=== PATIENT | female | born 1945 | race Caucasian/White ===

== ENCOUNTER 2017-08-20 21:20 | Inpatient (IN) | payer MEDICARE, SELFPAY ==
--- NOTE | 2017-08-20 21:23 | DI.RAD.S_ITS ---
PROCEDURE: XR CHEST 1V INDICATIONS: Fever hypoxia TECHNIQUE: One view of the chest was acquired. COMPARISON: [facility], , CHEST 1 VIEW, 07/18/2015, 21:28. FINDINGS: Surgical changes and devices: None. Lungs and pleura: The aeration of the lungs is similar to the previous exam. However, there is increasing attenuation within the medial aspect of the right lower lobe. Areas of scarring versus atelectasis are noted within the costophrenic angles. Course interstitial markings are identified diffusely, centered within the perihilar regions. No pneumothorax or large effusion is identified. Mediastinum: Mediastinal contours appear normal. Heart size is normal. There is aortic atherosclerosis. Bones and chest wall: No suspicious bony lesions. Overlying soft tissues appear unremarkable. IMPRESSION: 1. Possible developing right lower lobe pneumonia. Atelectasis or aspiration may have this appearance. 2. Mild basilar scarring versus atelectasis. Dictated by: Pino Vickers M.D. on 08/20/2017 at 22:08 Approved by: Pino Vickers M.D. on 08/20/2017 at 22:09
[2017-08-20 21:27] VITALS: BP 132/76; PULSE 88; RESP 18; TEMP 37.2; O2SAT 95
[2017-08-20 21:30] VITALS: BP 137/67; PULSE 86; RESP 19; O2SAT 94
--- NOTE | 2017-08-20 21:31 | ED_ITS ---
HPI - Fever General Chief Complaint: Fever Stated Complaint: Possible sepsis Time Seen by Provider: 08/20/17 21:23 Source: patient Mode of arrival: other (Air lift) Limitations: no limitations History of Present Illness HPI Narrative: Patient is a 72-year-old female presenting with fever. She was recently diagnosed with a UTI about 2 days ago. She was having painful frequent urination she was started on Macrobid and Pyridium. She also got an injection of Rocephin yesterday. She had a fever of 102 today overall feels weak and tired. She is feeling nauseated and has decreased intake. She denies any abdominal pain flank pain. She also started having a mild cough and oxygen level on in the ED noted to be in low 90's. She is also complaining of headache but no neck pain. She was given a dose of some antipyretic prior to arrival and is no longer febrile. MD complaint: fever, malaise and weakness Maximum Temperature: 102 F Related Data Home Medications Medication Instructions Recorded Confirmed VITAMIN D (Vitamin D3) 1,000 unit PO QDAY #0 07/22/10 07/22/17 metronidazole [MetroCream] 0.75 TP #0 07/22/10 07/22/17 Fish Oil 3,000 mg PO Q DAY #0 08/03/11 07/22/17 CA PANTOTHENATE/FOLIC ACID/VIT 1 tab PO QDAY #0 07/25/12 07/22/17 (MULTIVITAMIN) aspirin 162 mg PO QDAY #0 08/04/12 07/22/17 Previous Rx's Medication Instructions Recorded [TRUETRACK TEST STRIP] #50 03/23/12 metformin [Glucophage] 1,000 mg PO BIDCC #360 tab 03/02/16 [ACCU-CHEK NICOLE PLUS] BID #1 box 09/13/16 lisinopril 10 mg PO BID #180 tab 09/13/16 meloxicam 15 mg PO QDAY #90 mg 09/13/16 montelukast [Singulair] 10 mg PO QDAY #90 tab 09/13/16 ranitidine HCl 150 mg PO SEE INSTRUCTIONS #180 tab 10/21/16 Allergies Allergy/AdvReac Type Severity Reaction Status Date / Time ciprofloxacin [CIPROFLOXACIN] Allergy Mild HIVES Verified 07/22/17 09:59 Review of Systems Review of Systems All systems reviewed & are unremarkable except as noted in HPI and below Constitutional Reports body ache(s), Reports fatigue, Reports fever(s), Reports headache(s) and Denies increased appetite ENT Ears, Nose, Mouth, and Throat: Reports headache(s) Cardiovascular Denies chest pain, Denies irregular heart rhythm, Denies lightheadedness, Denies palpitations, Denies dyspnea, Denies dyspnea on exertion and Denies orthopnea Respiratory Denies chest congestion, Reports cough, Denies dyspnea and Denies dyspnea on exertion Gastrointestinal Gastrointestinal: Denies abdominal pain, Denies change in bowel habits, Denies diarrhea, Denies nausea and Denies vomiting Genitourinary Reports as per HPI Musculoskeletal Denies back pain, Denies muscle weakness, Denies numbness and Denies tingling Integumentary/Breasts Denies pruritus, Denies erythema, Denies rash and Denies wounds Neurologic Reports headache(s), Denies numbness and Denies tingling Endocrine Reports fatigue and Denies palpitations PFSH Medical History CVA (cerebral vascular accident) (Acute) Controlled type 2 diabetes mellitus (Acute) Hypertension (Acute) Non-alcoholic fatty liver disease (Acute) Family History Brother Diabetes mellitus Father Mental health problem Alzheimer's disease Grandmother Diabetes mellitus Mother Cancer Grandmother Mental health problem Sister Age: 82 Cancer Social History household members: spouse Smoking Status: Former smoker Exam Initial Vital Signs Initial Vital Signs: Vital Signs Temperature 98.9 F 08/20/17 21:27 Pulse Rate 88 08/20/17 21:27 Respiratory Rate 18 08/20/17 21:27 Blood Pressure 132/76 H 08/20/17 21:27 Pulse Oximetry 95 08/20/17 21:27 Const General: cooperative and comfortable Nutritional Appearance: average body habitus Orientation: alert, awake and oriented x3 HENMT Head: normal to inspection Neck Neck: full ROM and no meningeal signs Resp Effort & Inspection: normal respiratory effort, able to speak in complete sentences, no respiratory distress and no use of accessory muscles Auscultation: clear to auscultation bilaterally, no rales, no rhonchi and no wheezes Cardio Rate: regular rate Rhythm: regular rhythm Heart Sounds: no click, no gallops, no murmurs and no rubs Pulses: normal peripheral pulses GI Inspection: non-distended Palpation: soft, no hepatosplenomegaly, No guarding, No pulsatile mass and No tender Auscultation: normal bowel sounds Skin General: no rashes or lesions noted, No jaundice and No petechiae Neuro General: alert, oriented x3, gait normal and no focal motor deficits Speech: speech normal Course Orders Ordered: ED Orders 08/20/17 21:23 XR chest 1V Stat 08/20/17 21:30 Complete Blood Count AUTO DIFF Stat Comprehensive Metabolic Panel Stat Lactate (Lactic Acid) Stat 08/20/17 21:50 Blood Culture Stat 08/20/17 22:28 Urinalysis and Microscopic Stat 08/21/17 00:20 Consult to Physician Routine Acetaminophen (Tylenol) 650 mg PO Q6HR PRN PRN Reason: As Needed for Fever/Mild Pain Sodium Chloride (Normal Saline 0.9%) 1,000 mls @ 125 mls/hr IV CONT AMPARO Last Admin: 08/21/17 01:29 Dose: 125 mls/hr Discontinued Medications Ceftriaxone Sodium/Dextrose (Rocephin) 2 gm in 50 mls @ 100 mls/hr IV NOW ONE Stop: 08/20/17 21:52 Last Infusion: 08/20/17 22:23 Dose: 0 mls/hr Admin: 08/20/17 21:44 Dose: 100 mls/hr Sodium Chloride (Normal Saline 0.9%) 1,000 mls @ 200 mls/hr IV CONT AMPARO Stop: 08/21/17 00:20 Last Admin: 08/20/17 21:41 Dose: 200 mls/hr Azithromycin 500 mg/ Dextrose 250 mls @ 250 mls/hr IV NOW ONE Stop: 08/20/17 22:52 Last Admin: 08/20/17 23:19 Dose: 250 mls/hr Ketorolac Tromethamine (Toradol) 30 mg IV NOW ONE Stop: 08/20/17 22:52 Last Admin: 08/20/17 23:00 Dose: 30 mg Vital Signs - 8 hr 08/20/17 21:27 08/20/17 21:30 08/20/17 21:52 Temperature 98.9 F 99.0 F Pulse Rate 88 86 Respiratory Rate 18 19 Blood Pressure 132/76 H Blood Pressure [Right Arm] 137/67 H Pulse Oximetry 95 94 08/20/17 22:30 08/21/17 00:17 Temperature 97.7 F Pulse Rate 76 69 Respiratory Rate 21 19 Blood Pressure 124/85 H Blood Pressure [Right Arm] 122/63 H Pulse Oximetry 96 96 MDM - Fever Lab Data Result diagrams: 08/20/17 21:30 08/20/17 21:30 Lab Results 08/20/17 08/20/17 08/20/17 Range/Units 21:30 21:30 21:30 WBC 9.8 (4.5-11.0) X10^3/uL RBC 4.17 (4.0-5.2) X10^6/uL Hgb 12.0 (12.0-16.0) g/dL Hct 35.9 L (36-46) % MCV 86.0 (80-100) fL MCH 28.8 (26-34) PG MCHC 33.5 (30-36) % RDW 14.2 (11.6-14.8) % Plt Count 175 (150-400) X10^3/uL Neut % (Auto) 84.3 H (50-75) % Lymph % (Auto) 6.1 L (25-40) % [place] % (Auto) 5.4 (3-14) % Eos % (Auto) 4.1 H (2-4) % Baso % (Auto) 0.1 (0-2) % Neut # (Auto) 8200 H (8684-3795) /uL Sodium 132 L (137-145) mmol/L Potassium 4.1 (3.4-5.1) mmol/L Chloride 99 (98-107) mmol/L Carbon Dioxide 23 (22-32) mmol/L BUN 13 (7-17) mg/dL Creatinine 0.70 (0.52-1.04) mg/dL Estimated GFR > 60.0 (>60) mL/min BUN/Creatinine Ratio 18.6 (6-22) Glucose 142 H (80-110) mg/dL Lactate 0.9 (0.7-2.1) mmol/L Calcium 8.9 (8.4-10.2) mg/dL Total Bilirubin 0.6 (0.2-1.3) mg/dL AST 34 (14-36) IU/L ALT 41 (9-52) IU/L Alkaline Phosphatase 59 (38-126) U/L Total Protein 6.8 (6.3-8.2) g/dL Albumin 3.7 (3.5-5.0) g/dL Globulin 3.1 (1.7-4.1) g/dL Albumin/Globulin Ratio 1.2 (1.0-2.8) Urine Color Urine Appearance Urine pH (4.5-8.0) Ur Specific [place] (1.000-1.035) Urine Protein (Negative) Urine Glucose (UA) (Normal) g/dL Urine Ketones (NEGATIVE) Urine Occult Blood (Negative) Urine Nitrate (Negative) Urine Bilirubin (NEGATIVE) Urine Urobilinogen (0.2) E.U./dL Ur Leukocyte Esterase (NEGATIVE) Urine RBC (0-5/HPF) Urine WBC (0-5/HPF) Urine Bacteria (None) Ur Culture Indicated? Micro UA Comment 08/20/17 Range/Units 22:28 WBC (4.5-11.0) X10^3/uL RBC (4.0-5.2) X10^6/uL Hgb (12.0-16.0) g/dL Hct (36-46) % MCV (80-100) fL MCH (26-34) PG MCHC (30-36) % RDW (11.6-14.8) % Plt Count (150-400) X10^3/uL Neut % (Auto) (50-75) % Lymph % (Auto) (25-40) % [place] % (Auto) (3-14) % Eos % (Auto) (2-4) % Baso % (Auto) (0-2) % Neut # (Auto) (1077-5914) /uL Sodium (137-145) mmol/L Potassium (3.4-5.1) mmol/L Chloride (98-107) mmol/L Carbon Dioxide (22-32) mmol/L BUN (7-17) mg/dL Creatinine (0.52-1.04) mg/dL Estimated GFR (>60) mL/min BUN/Creatinine Ratio (6-22) Glucose (80-110) mg/dL Lactate (0.7-2.1) mmol/L Calcium (8.4-10.2) mg/dL Total Bilirubin (0.2-1.3) mg/dL AST (14-36) IU/L ALT (9-52) IU/L Alkaline Phosphatase (38-126) U/L Total Protein (6.3-8.2) g/dL Albumin (3.5-5.0) g/dL Globulin (1.7-4.1) g/dL Albumin/Globulin Ratio (1.0-2.8) Urine Color Yellow Urine Appearance Clear Urine pH 5.0 (4.5-8.0) Ur Specific [place] 1.020 (1.000-1.035) Urine Protein Trace H (Negative) Urine Glucose (UA) Negative (Normal) g/dL Urine Ketones 1+ H (NEGATIVE) Urine Occult Blood Trace-lysed (Negative) Urine Nitrate Negative (Negative) Urine Bilirubin Negative (NEGATIVE) Urine Urobilinogen 0.2 (0.2) E.U./dL Ur Leukocyte Esterase Negative (NEGATIVE) Urine RBC 0-1/hpf (0-5/HPF) Urine WBC 1-5/hpf (0-5/HPF) Urine Bacteria Few (2-10) H (None) Ur Culture Indicated? Cult not indicated Micro UA Comment Not Reportable Imaging Data Chest x-ray: Radiologist's impression: PROCEDURE: XR CHEST 1V INDICATIONS: Fever hypoxia TECHNIQUE: One view of the chest was acquired. COMPARISON: [facility], , CHEST 1 VIEW, 07/18/2015, 21:28. FINDINGS: Surgical changes and devices: None. Lungs and pleura: The aeration of the lungs is similar to the previous exam. However, there is increasing attenuation within the medial aspect of the right lower lobe. Areas of scarring versus atelectasis are noted within the costophrenic angles. Course interstitial markings are identified diffusely, centered within the perihilar regions. No pneumothorax or large effusion is identified. Mediastinum: Mediastinal contours appear normal. Heart size is normal. There is aortic atherosclerosis. Bones and chest wall: No suspicious bony lesions. Overlying soft tissues appear unremarkable. IMPRESSION: 1. Possible developing right lower lobe pneumonia. Atelectasis or aspiration may have this appearance. 2. Mild basilar scarring versus atelectasis. Dictated by: Pino Vickers M.D. on 08/20/2017 at 22:08 MDM Narrative Medical decision making narrative: The patient has recently been diagnosed with UTI with UTI symptoms she has been partially treated with Rocephin and 2 doses of Macrobid. She had fever of 102 today. She also has cough with early signs of pneumonia on x-ray. After IV fluids she still is feeling very weak. She likely now has 2 infections of UTI and pneumonia. With cor morbidities of hypertension diabetes and stroke. She does not appear septic, she does not have SIRS criteria. She is treated for community-acquired pneumonia. Dr. Turcios has been updated on symptoms and test results and agrees with admission. Discharge Plan Departure Patient Disposition: Admitted As Inpatient Clinical Impression: Pneumonia, UTI (urinary tract infection) Discharge Date/Time: 08/21/17 00:11 Interventions: ED Discharge Assessment Last Done: 08/21/17 00:15 Admit Date/Time: 08/20/17 23:57 Admit Provider: Arias Turcios
[2017-08-20] MEDS: SODIUM CHLORIDE 0.9% 1,000 ML 200 ML IV (21:41)
[2017-08-20] MEDS: CEFTRIAXONE 2 GM/50 ML FROZ.PIGGY IV (21:44)
[2017-08-20 21:51] LABS: Add Manual Diff / Slide Review NO; Basophils Percent Auto 0.1 % (0-2); Eosinophils Percent Auto 4.1 % (2-4); Hematocrit 35.9 % (36-46); Lymphocytes Percent Auto 6.1 % (25-40); Mean Corpuscular HGB Conc 33.5 % (30-36); Mean Corpuscular Hemoglobin 28.8 PG (26-34); Monocytes Percent Auto 5.4 % (3-14); Neutrophils Absolute Auto 8200 /uL (3000-5900); Neutrophils Percent Auto 84.3 % (50-75); Platelet Count 175 X10^3/uL (150-400); Red Blood Cell Count 4.17 X10^6/uL (4.0-5.2); Red Cell Distribution Width 14.2 % (11.6-14.8); White Blood Cell Count 9.8 X10^3/uL (4.5-11.0)
[2017-08-20 21:52] VITALS: TEMP 37.2
[2017-08-20 21:59] LABS: Lactate (Lactic Acid) 0.9 mmol/L (0.7-2.1)
[2017-08-20 22:00] LABS: Alanine Aminotransferase 41 IU/L (9-52); Albumin 3.7 g/dL (3.5-5.0); Albumin Globulin Ratio 1.2 (1.0-2.8); Alkaline Phosphatase 59 U/L (38-126); Aspartate Aminotransferase 34 IU/L (14-36); BUN Creatinine Ratio 18.6 (6-22); Bilirubin Total 0.6 mg/dL (0.2-1.3); Blood Urea Nitrogen 13 mg/dL (7-17); Calcium 8.9 mg/dL (8.4-10.2); Carbon Dioxide 23 mmol/L (22-32); Chloride 99 mmol/L (98-107); Estimated Glomerular Filt Rate > 60.0 mL/min (>60); Globulin 3.1 g/dL (1.7-4.1); Glucose 142 mg/dL (80-110); HEMOLYSIS < 15 (0-50); Potassium 4.1 mmol/L (3.4-5.1); Sodium 132 mmol/L (137-145); Total Protein 6.8 g/dL (6.3-8.2)
[2017-08-20 22:30] VITALS: BP 122/63; PULSE 76; RESP 21; O2SAT 96
[2017-08-20 22:42] LABS: Appearance Urine UA CLEAR; Bilirubin Urine UA NEGATIVE (NEGATIVE); Color Urine UA YELLOW; Glucose Urine UA NEGATIVE (Normal); Ketones Urine UA 1+ (NEGATIVE); Leukocyte Esterase Urine UA NEGATIVE (NEGATIVE); Nitrite Urine UA Negative (Negative); Occult Blood Urine UA TRACE-LYSED (Negative); Protein Urine UA TRACE (Negative); Urobilinogen Urine UA 0.2 E.U./dL (0.2)
[2017-08-20 22:53] LABS: Bacteria Urine Few (2-10); Culture Indicated Urine Cult Not Indicated; RBC Urine 0-1/HPF (0-5/HPF); WBC Urine 1-5/HPF (0-5/HPF)
[2017-08-20] MEDS: KETOROLAC 60 MG/2 ML VIAL 30 MG IV (23:00)
[2017-08-20] MEDS: AZITHROMYCIN 500 MG in DEXTROSE 5% IN WATER 250 ML IV (23:19)
[2017-08-21] VITALS (11 sets, daily range): BP systolic 119–139; BP diastolic 71–85; PULSE 69–105; RESP 16–20; TEMP 36.4–37.2; O2SAT 90–97; BMI 24.7
--- NOTE | 2017-08-21 | DI.CT.S_ITS ---
PROCEDURE: CT CHEST WO CON INDICATIONS: pneumonia TECHNIQUE: Noncontrast 5 mm thick sections acquired from the pulmonary apices to the posterior costophrenic angles. 7 mm thick coronal and sagittal MIP reformats were then acquired. For radiation dose reduction, the following was used: automated exposure control, adjustment of mA and/or kV according to patient size. COMPARISON: [facility], , XR CHEST 1V, 08/20/2017, 21:32. [facility], , CHEST 1 VIEW, 07/18/2015, 21:28. FINDINGS: Image quality: Excellent. Lungs and pleura: Bilateral pleural thickening and subpleural atelectasis in lower lobes. No acute air space opacities. No pleural effusions or pneumothorax. Central and peripheral airways are patent and normal in caliber. Mediastinum: Heart size is normal. No pericardial effusion. No mediastinal adenopathy by size criteria. Thoracic aorta and central pulmonary arteries are normal in size. Esophagus is normal in caliber. Tiny hiatal hernia. Bones and chest wall: No suspicious bony lesions. No vertebral body compression fractures. No axillary or supraclavicular adenopathy by size criteria. Thyroid gland is unremarkable. Abdomen: Visualized upper abdominal solid organs and bowel loops appear normal in the absence of contrast. IMPRESSION: Bilateral pleural thickening and subpleural atelectasis in lower lobes. No CT findings to suggest pneumonia. Dictated by: Rosetta Hanna M.D. on 08/21/2017 at 21:55 Approved by: Rosetta Hanna M.D. on 08/21/2017 at 21:58
[2017-08-21] MEDS: SODIUM CHLORIDE 0.9% 1,000 ML 125 ML IV ×2 (01:29→04:02)
--- NOTE | 2017-08-21 08:01 | PM.HP.1 ---
History of Present Illness Date Patient Seen: 08/21/17 Time Patient Seen: 08:01 Chief complaint: Possible sepsis Narrative: 72-year-old female resident of [place] presents with fever and feeling poorly. She was seen by primary care on Tuesday at the on the [place] diagnosed with urinary tract infection and given a dose of ceftriaxone and put on oral antibiotic. She continued to feel very poorly lethargy fatigue fevers muscle aches headaches and a little bit of a cough started and came in on Tuesday evening late due to a fever of 102. Patient History Medical History CVA (cerebral vascular accident) (Acute) Controlled type 2 diabetes mellitus (Acute) Hypertension (Acute) Non-alcoholic fatty liver disease (Acute) Family & Social History Social History: household members spouse Prior Living Arrangements House Safety & Behavioral: Feels Safe in Current Yes Environment Been Physically Hurt or No Threatened By a Person Suicidal Ideation Description None Suicide Plan Description No Plan Tobacco & Substance use: Smoking Status Former smoker alcohol intake frequency holiday/special occasion Substance Use Type does not use Meds Home Medications Medication Instructions Recorded Confirmed Type VITAMIN D (Vitamin D3) 1,000 unit PO QDAY #0 07/22/10 07/22/17 History metronidazole [MetroCream] 0.75 TP #0 07/22/10 07/22/17 History Fish Oil 3,000 mg PO Q DAY #0 08/03/11 07/22/17 History [TRUETRACK TEST STRIP] #50 03/23/12 07/22/17 Rx CA PANTOTHENATE/FOLIC ACID/VIT 1 tab PO QDAY #0 07/25/12 07/22/17 History (MULTIVITAMIN) aspirin 162 mg PO QDAY #0 08/04/12 07/22/17 History metformin [Glucophage] 1,000 mg PO BIDCC #360 tab 03/02/16 07/22/17 Rx [ACCU-CHEK NICOLE PLUS] BID #1 box 09/13/16 07/22/17 Rx lisinopril 10 mg PO BID #180 tab 09/13/16 07/22/17 Rx meloxicam 15 mg PO QDAY #90 mg 09/13/16 07/22/17 Rx montelukast [Singulair] 10 mg PO QDAY #90 tab 09/13/16 07/22/17 Rx ranitidine HCl 150 mg PO SEE INSTRUCTIONS #180 tab 10/21/16 07/22/17 Rx Allergies Allergy/AdvReac Type Severity Reaction Status Date / Time ciprofloxacin [CIPROFLOXACIN] Allergy Mild HIVES Verified 07/22/17 09:59 Review of Systems Review of Systems All systems reviewed & are unremarkable except as noted in HPI and below Exam Vital Signs (past 8 hours): - 08/21/17 00:17 08/21/17 03:39 08/21/17 06:27 Temperature 97.7 F 97.8 F Pulse Rate 69 70 Respiratory Rate 19 17 Blood Pressure 124/85 H 139/71 H Pulse Oximetry 96 97 94 08/21/17 07:14 Temperature Pulse Rate Respiratory Rate Blood Pressure Pulse Oximetry 93 Oxygen Delivery Method Nasal Cannula Oxygen Flow Rate 1 Narrative Exam Narrative: Somewhat lethargic she also has a little hard time focusing on questions and answers HEENT exam unremarkable Neck supple no bruit no JVD Lungs some bronchial breath sounds crackles in the right mid to lower lung field Heart regular rhythm Abdomen soft and nontender no but no masses Lower extremities trace edema Neuro exam awake alert oriented x3 little slurry answer questions or respond but is does so appropriately eventually no focal motor or sensory deficits Skin warm and dry Objective Labs Result Diagrams: 08/20/17 21:30 08/20/17 21:30 Labs: Laboratory Results - last 24 hr 08/20/17 08/20/17 08/20/17 21:30 21:30 21:30 WBC 9.8 RBC 4.17 Hgb 12.0 Hct 35.9 L MCV 86.0 MCH 28.8 MCHC 33.5 RDW 14.2 Plt Count 175 Neut % (Auto) 84.3 H Lymph % (Auto) 6.1 L [place] % (Auto) 5.4 Eos % (Auto) 4.1 H Baso % (Auto) 0.1 Neut # (Auto) 8200 H Sodium 132 L Potassium 4.1 Chloride 99 Carbon Dioxide 23 BUN 13 Creatinine 0.70 Estimated GFR > 60.0 BUN/Creatinine Ratio 18.6 Glucose 142 H Lactate 0.9 Calcium 8.9 Total Bilirubin 0.6 AST 34 ALT 41 Alkaline Phosphatase 59 Total Protein 6.8 Albumin 3.7 Globulin 3.1 Albumin/Globulin Ratio 1.2 Urine Color Urine Appearance Urine pH Ur Specific [place] Urine Protein Urine Glucose (UA) Urine Ketones Urine Occult Blood Urine Nitrate Urine Bilirubin Urine Urobilinogen Ur Leukocyte Esterase Urine RBC Urine WBC Urine Bacteria Ur Culture Indicated? Micro UA Comment 08/20/17 22:28 WBC RBC Hgb Hct MCV MCH MCHC RDW Plt Count Neut % (Auto) Lymph % (Auto) [place] % (Auto) Eos % (Auto) Baso % (Auto) Neut # (Auto) Sodium Potassium Chloride Carbon Dioxide BUN Creatinine Estimated GFR BUN/Creatinine Ratio Glucose Lactate Calcium Total Bilirubin AST ALT Alkaline Phosphatase Total Protein Albumin Globulin Albumin/Globulin Ratio Urine Color Yellow Urine Appearance Clear Urine pH 5.0 Ur Specific [place] 1.020 Urine Protein Trace H Urine Glucose (UA) Negative Urine Ketones 1+ H Urine Occult Blood Trace-lysed Urine Nitrate Negative Urine Bilirubin Negative Urine Urobilinogen 0.2 Ur Leukocyte Esterase Negative Urine RBC 0-1/hpf Urine WBC 1-5/hpf Urine Bacteria Few (2-10) H Ur Culture Indicated? Cult not indicated Micro UA Comment Not Reportable Assessment & Plan Plan: Assessment/Plan Narrative: One. Pneumonia right middle lobe by x-ray this is just beginning it looks like plan to do a CT scan to further evaluate this she also had a supposedly urinary tract infection last Tuesday currently the urine looks clear. At this point the patient will be placed on ceftriaxone and Zithromax. She has essentially failed outpatient treatment for whatever infection they were treating her for. Her oxygenation on room air about 90% so just mildly low. The patient will we admitted as an inpatient and continue IV antibiotics IV fluids and supportive care 2. Diabetes type 2 plan to continue metformin 3. History of hypertension has been on lisinopril that will be held for now as her blood pressure just a little on the low side. 4. DVT prophylaxis Lovenox abuse 5. Code status she desires to be full code Time Spent With Patient Time with patient: Greater than 35 minutes Quality VTE Deep Vein Thrombosis/Pulmonary Embolism Present on Admission: No
[2017-08-21] MEDS: METFORMIN HCL 500 MG TABLET 1000 MG PO ×2 (08:58→17:07)
[2017-08-21] MEDS: SODIUM CHLORIDE 0.9% 1,000 ML 100 ML IV (08:58)
[2017-08-21] MEDS: ENOXAPARIN 40 MG/0.4 ML SYRINGE SUBCUT (08:59)
--- NOTE | 2017-08-21 13:24 | CM.DANOTE ---
DCP/Assessment: Reviewed chart. Patient is a 72yr old female admitted to [facility] with pneumonia and possible sepsis. Primary payor is 1) Medicare 2) [facility]. PCP is Dr. Everett. Met with patient explained CM/SW role. Patient alert and oriented, sitting up in bed at time of visit. Patient reports that she is completely I with all ADL's. Pt. resides on [place] with her spouse/Yazan phone# [phone]. Patient does not use any DME at baseline and drives regularly. Patient plans to d/c home when medically stable. Patient most likely will need priority boarding pass to return to [place]. CM team name/number placed on white board. P: Anticipate home when medically stable. CM team to follow for needs. JAIME Neely
[2017-08-21] MEDS: ONDANSETRON 4 MG/2 ML INJ IV (15:45)
[2017-08-21] MEDS: ACETAMINOPHEN 325 MG TABLET 650 MG PO ×2 (17:07→22:09)
[2017-08-21] MEDS: CEFTRIAXONE 1 GM/50 ML FROZ.PIGGY IV (21:27)
[2017-08-21] MEDS: AZITHROMYCIN 250 MG in DEXTROSE 5% IN WATER 250 ML IV (22:06)
[2017-08-22] VITALS (11 sets, daily range): BP systolic 105–148; BP diastolic 63–92; PULSE 61–77; RESP 14–17; TEMP 36.6–37.5; O2SAT 94–97
--- NOTE | 2017-08-22 01:21 | PC.NURSE ---
Patient is alert and oriented. Breath sounds with inspiratory crackles in bilateral lower lobes. Currently on 3L/min oxygen per NC with sat of 96%; remains on continuous pulse oximetry. HRR. Denies nausea. BT present and abdomen is soft. Denies dysuria, frequency, urgency or incontinence. Able to turn self in bed. Fall risk score is medium and patient not requesting help when getting out of bed so bed alarm activated. Does complain of 4/10 headache but had Tylenol earlier and declines any intervention at this time.
[2017-08-22] MEDS: SODIUM CHLORIDE 0.9% 1,000 ML 100 ML IV (05:11)
[2017-08-22 06:00] LABS: Add Manual Diff / Slide Review NO; Basophils Percent Auto 0.2 % (0-2); Eosinophils Percent Auto 4.5 % (2-4); Hemoglobin 10.6 g/dL (12.0-16.0); Mean Corpuscular HGB Conc 33.2 % (30-36); Mean Corpuscular Hemoglobin 28.8 PG (26-34); Mean Corpuscular Volume 86.5 fL (80-100); Monocytes Percent Auto 7.5 % (3-14); Neutrophils Absolute Auto 7000 /uL (3000-5900); Neutrophils Percent Auto 77.8 % (50-75); Platelet Count 167 X10^3/uL (150-400); Red Cell Distribution Width 14.1 % (11.6-14.8)
[2017-08-22 06:09] LABS: Alanine Aminotransferase 66 IU/L (9-52); Albumin 3.2 g/dL (3.5-5.0); Albumin Globulin Ratio 1.1 (1.0-2.8); Alkaline Phosphatase 69 U/L (38-126); Aspartate Aminotransferase 63 IU/L (14-36); BUN Creatinine Ratio 11.7 (6-22); Bilirubin Total 0.5 mg/dL (0.2-1.3); Blood Urea Nitrogen 7 mg/dL (7-17); Calcium 8.6 mg/dL (8.4-10.2); Carbon Dioxide 26 mmol/L (22-32); Chloride 105 mmol/L (98-107); Estimated Glomerular Filt Rate > 60.0 mL/min (>60); Globulin 2.9 g/dL (1.7-4.1); Glucose 118 mg/dL (80-110); HEMOLYSIS < 15 (0-50); Potassium 3.7 mmol/L (3.4-5.1); Sodium 139 mmol/L (137-145); Total Protein 6.1 g/dL (6.3-8.2)
[2017-08-22] MEDS: ACETAMINOPHEN 325 MG TABLET 650 MG PO (08:20)
[2017-08-22] MEDS: METFORMIN HCL 500 MG TABLET 1000 MG PO ×2 (08:20→18:05)
[2017-08-22] MEDS: ENOXAPARIN 40 MG/0.4 ML SYRINGE SUBCUT (08:21)
--- NOTE | 2017-08-22 14:03 | PC.NURSE ---
day shift pt c/o HICKMAN this AM, medicated with tylenol and pain down from 4 to 2. able to wean off O2, 94-96% on RA. coughing up thick yellow phlegm. hourly rounding provided, call light within reach.
--- NOTE | 2017-08-22 15:47 | PM.PN.1 ---
Subjective Date Patient Seen: 08/22/17 Time Patient Seen: 15:47 Interval history: Patient notes improvement in cough. Denies dyspnea. Taking fluids well by mouth. Exam Vital Signs (past 8 hours): - 08/22/17 08:00 08/22/17 09:15 08/22/17 11:42 Temperature 98.4 F 97.8 F Pulse Rate 69 66 Respiratory Rate 14 16 Blood Pressure 128/77 H 120/79 Pulse Oximetry 94 94 96 Oxygen Delivery Method Room Air Oxygen Flow Rate 2 Narrative Exam Narrative: GENERAL: Patient is in no acute distress HEENT: Head normocephalic, atraumatic. Mucous membranes moist. CHEST: She has crackles in the right base, no wheeze. CARDIAC: Regular rate and rhythm. ABDOMEN: Nondistended, soft, nontender EXTREMITIES: no edema. NEUROLOGICAL: Alert, pleasant, no focal findings SKIN: Warm, dry, no petechiae, no rash Objective Labs Result Diagrams: 08/22/17 05:33 08/22/17 05:33 Labs: Laboratory Results - last 24 hr 08/22/17 08/22/17 05:33 05:33 WBC 9.0 RBC 3.70 L Hgb 10.6 L Hct 32.0 L MCV 86.5 MCH 28.8 MCHC 33.2 RDW 14.1 Plt Count 167 Neut % (Auto) 77.8 H Lymph % (Auto) 10.0 L [place] % (Auto) 7.5 Eos % (Auto) 4.5 H Baso % (Auto) 0.2 Neut # (Auto) 7000 H Sodium 139 Potassium 3.7 Chloride 105 Carbon Dioxide 26 BUN 7 Creatinine 0.60 Estimated GFR > 60.0 BUN/Creatinine Ratio 11.7 Glucose 118 H Calcium 8.6 Total Bilirubin 0.5 AST 63 H ALT 66 H Alkaline Phosphatase 69 Total Protein 6.1 L Albumin 3.2 L Globulin 2.9 Albumin/Globulin Ratio 1.1 Assessment & Plan Plan: Assessment/Plan Narrative: 1. Probable pneumonia, unclear whether bacterial or viral. CT scan without definite pneumonia but patient has right base crackles and a cough and had a high fever at home. She is definitely improving and has not had any further fever in-hospital. WBC normal. O2 sat 96% room air. Plan: Likely DC home tomorrow on oral cefuroxime 500 mg twice daily x5 days and 1 more dose of the Zithromax 500 mg p.o.. 2. Type 2 diabetes. Adequately controlled. Continue metformin. 3. Hypertension. BP normal with lisinopril on hold but can be resumed on discharge. 4. DVT prophylaxis. On low-dose Lovenox. 5. Acute anemia and likely due to IV hydration and/or inflammatory block. No indication of bleed. Quality VTE Deep Vein Thrombosis/Pulmonary Embolism Present on Admission: No
[2017-08-22] MEDS: CEFTRIAXONE 1 GM/50 ML FROZ.PIGGY IV (21:03)
[2017-08-22] MEDS: AZITHROMYCIN 250 MG in DEXTROSE 5% IN WATER 250 ML IV (22:18)
[2017-08-23 00:10] VITALS: BP 144/85; PULSE 68; RESP 16; TEMP 37.2; O2SAT 94
[2017-08-23 00:30] VITALS: O2SAT 94
[2017-08-23 03:08] VITALS: BP 143/84; PULSE 72; RESP 16; TEMP 36.8; O2SAT 94
[2017-08-23 08:00] VITALS: O2SAT 96
[2017-08-23] MEDS: METFORMIN HCL 500 MG TABLET 1000 MG PO (08:21)
--- NOTE | 2017-08-23 08:52 | P.DS_ITS ---
History of Present Illness Date Patient Seen: 08/23/17 Time Patient Seen: 08:43 Chief complaint: Possible sepsis Narrative: 72-year-old female resident of [place] presents with fever and feeling poorly. She was seen by primary care on Tuesday at the [facility] diagnosed with urinary tract infection and given a dose of ceftriaxone and put on oral antibiotic. She continued to feel very poorly lethargy fatigue fevers muscle aches headaches and a little bit of a cough started and came in on Tuesday evening late due to a fever of 102. Discharge Providers Date of admission: 08/20/17 23:57 Primary care physician: Akhil Everett MD Consults: 08/21/17 00:20 Consult to Physician Routine Comment: Consulting Provider: Arias Turcios Reason for consultation: admission Has provider been notified: Yes Discharge provider: KOKO Yusuf Summary Discharge Diagnosis: 1. Pneumonia unclear etiology, probable viral. 2. Type 2 diabetes 3. Hypertension Hospital Course: This is a summary of a 3 day hospitalization for this pleasant 72-year-old patient who presented to the emergency department with fever with a T-max of 102?. She had essentially failed outpatient treatment for whatever infection she was being treated for. Her white count was normal, urine was clear, and blood cultures x2 showed no growth after 48 hr. Her chest x-ray showed possible development of right lower lobe pneumonia, however her Chest CT revealed bilateral pleural thickening and subpleural atelectasis in lower lobes without findings to suggest pneumonia. She was empirically started on Rocephin 1 g IV q.day. As well as azithromycin 250 mg IV q.day. She has remained afebrile since admission and the remainder of her vital signs have been within normal limits. She has not required the need for any supplemental oxygen during this hospitalization. Her diabetes and hypertension have been fairly well controlled. She will continue to be on her home medications in addition to 1 day of azithromycin, and 5 days of cefuroxime. She is encouraged to follow up with her primary care provider on [place] in 1 week. Status at Discharge Functional status at discharge: independent ambulation Overall status at discharge: patient is back to baseline Time Spent with Patient Greater than 30 minutes Exam Vital Signs (past 8 hours): - 08/23/17 03:08 Temperature 98.3 F Pulse Rate 72 Respiratory Rate 16 Blood Pressure 143/84 H Pulse Oximetry 94 Oxygen Delivery Method Room Air Oxygen Flow Rate 0 Const General: cooperative, healthy appearing, comfortable, well developed and well groomed Nutritional Appearance: average body habitus Orientation: alert, awake and oriented x3 HENMT Head: normal to inspection, normocephalic and atraumatic Eyes General: appearance normal, both eyes and all related structures Pupils: PERRL Neck Neck: normal visual inspection, trachea midline and supple Other: No JVD or lymphadenopathy Chest Chest: normal inspection of the chest Resp Effort & Inspection: normal respiratory effort and able to speak in complete sentences Auscultation: clear to auscultation bilaterally Cardio Rate: regular rate Heart Sounds: S1 normal and S2 normal GI Inspection: normal to inspection Palpation: soft Auscultation: normal bowel sounds Other: Nontender Other: Unremarkable exam Back/Spine/Pelvis Back: normal to inspection Skin General: no rashes or lesions noted Neuro General: alert, awake and oriented x3 Cognition: normal cognition Speech: speech normal Gait: normal gait Motor: muscle tone normal throughout Sensory Exam: no sensory deficits noted Extrem General: normal to inspection, capillary refill normal and no pedal edema Psych Appearance: grossly normal Mental Status: mental status grossly normal Speech and Movement: speech and movement normal Mood: congruent mood Affect: normal affect Attitude: cooperative Thought Process: normal Thought Content: normal Judgment: judgment good Objective Labs Result Diagrams: 08/22/17 05:33 08/22/17 05:33 Discharge Plan Discharge Plan Patient Disposition: Home, Self-Care Discharge Med Rec/Prescriptions Prescriptions: New azithromycin 500 mg tablet 500 mg PO DAILY 1 Days Qty: 1 RF: 0 cefuroxime axetil 500 mg tablet 500 mg PO Q12H 5 Days Qty: 10 RF: 0 Continue metronidazole 0.75 % cream 0.75 dose Topical DAILY Qty: 0 RF: 0 VITAMIN D (Vitamin D3) 1,000 unit PO QDAY Qty: 0 RF: 0 Fish Oil 3,000 mg PO Q DAY Qty: 0 RF: 0 CA PANTOTHENATE/FOLIC ACID/VIT (MULTIVITAMIN) 1 tab PO QDAY Qty: 0 RF: 0 aspirin 81 MG tablet,delayed release (DR/EC) 81 mg PO QDAY Qty: 0 RF: 0 meloxicam 15 MG tablet 15 mg PO QDAY Qty: 90 RF: 1 ranitidine HCl 150 MG tablet 150 mg PO SEE INSTRUCTIONS Qty: 180 RF: 0 lisinopril 10 mg Tablet 10 mg PO DAILY RF: 0 metformin 500 mg Tablet 500 mg PO BID RF: 0 Follow up/Referrals: Akhil Everett MD [Primary Care Provider] - 1 Week Visit Report/Discharge Packet Instructions: Pneumonia-Adult Discharge Data Primary Care Provider: Akhil Everett Attending Provider: Arias Turcios Admit Date/Time: 08/20/17 23:57 Quality VTE Deep Vein Thrombosis/Pulmonary Embolism Present on Admission: No
--- NOTE | 2017-08-23 10:42 | PC.NURSE ---
Pt discharged to home. Out to car with RN and to drive home. [place] pass provided for couple. Iv alreading taken out on Noc shift.
== END 2017-08-23 08:30 | disposition home or self-care (01) | DRG 195 ==
LOC: ED 23:44 → AC 23:58
PROVIDERS: Admitting Provider Internal Medicine; Emergency Provider Emergency Medicine; Family Provider Family Medicine; PCP Family Medicine; Visit Provider Internal Medicine
DX: J12.9 Viral pneumonia, unspecified (principal); E11.9 Type 2 diabetes mellitus without complications; Z79.84 Long term (current) use of oral hypoglycemic drugs; I10 Essential (primary) hypertension; Z87.891 Personal history of nicotine dependence; Z86.73 Personal history of transient ischemic attack (TIA), and cerebral infarction without residual deficits
CPT/HCPCS: 36415; 71045; 71250; 80053; 81001; 82962; 83605; 85025; 87040; 94760; 96361; 96365; 96375; 99283; 99284; J0696; J1650; J1885; J2405

== ENCOUNTER → 2018-06-09 10:48 | Outpatient (CLI) | payer MEDICARE, SELFPAY ==
[2017-08-21 00:22] VITALS: BMI 24.7
--- NOTE | 2018-06-09 | DI.MRI.S_ITS ---
PROCEDURE: MR KNEE RT WO CON INDICATIONS: PAIN IN RIGHT KNEE TECHNIQUE: Merino-Nephew Visionaire protocol was performed. Noncontrast sagittal PD fast spin echo and T2 fast spin echo with fat saturation, sagittal 3-D FLASH with fat saturation; coronal T1 spin echo and PD fast spin echo with fat saturation, and axial PD fast spin echo with fat saturation through the knee. COMPARISON: None. FINDINGS: Image quality: Excellent. Menisci: Marked irregularity and intrasubstance signal change involving the posterior horn and body of the lateral meniscus which could reflect prior postsurgical changes versus tear. There is slight extrusion of the residual meniscal body substance. Undersurface tear involving the body of the medial meniscus is seen and there is slight partial extrusion of the body. Cruciate ligaments: The anterior and posterior cruciate ligaments appear intact. Medial structures: The medial collateral ligament appears intact. The posterior oblique ligament, semimembranosus tendon insertions, oblique popliteal ligament, and meniscocapsular junction appear intact. Visualized portions of the pes anserinus tendons appear normal. No abnormal bursal fluid. Lateral structures: The lateral collateral ligament, long and short heads of the biceps femoris tendon appear intact. The popliteus tendon appears normal; the popliteofibular ligament appears intact. The posterosuperior and anteroinferior popliteomeniscal fascicles appear intact. The arcuate and fabellofibular ligaments appear intact, on either side of the lateral inferior geniculate artery. Iliotibial band appears normal. Anterior structures: Quadriceps tendon grossly intact. There is mild distal patellar tendinopathy with thickening and low-grade intrasubstance signal change. There is adjacent soft tissue edema. Hoffa's fat pad grossly unremarkable. Bones and cartilage: No focal marrow contusion or discrete low signal fracture line. Within the medial compartment, diffuse partial-thickness loss of the femoral and tibial articular cartilage. Within the lateral compartment, there is full thickness denudation of the femoral and tibial articular cartilage. On the axial pulse sequences, there is a 7 mm osteochondral defect involving the posterior nonweightbearing lateral femoral condyle image 15 series 6 Within the patellofemoral compartment, diffuse partial-thickness loss of femoral trochlear and patellar articular cartilage. There is mild subchondral marrow cystic change at the median patellar ridge. Joint space: Moderate joint effusion. No Zhou's cyst. No definite intra-articular loose bodies identified. IMPRESSION: Irregularity and diminutive size of the posterior horn and body lateral meniscus, this could reflect postoperative appearance after partial meniscectomy. Undersurface tear involving the body of the medial meniscus, with slight partial extrusion. Severe degenerative joint disease, most advanced in the lateral compartment. 7 mm osteochondral defect involving the posterior lateral femoral condyle as above. Moderate joint effusion. Mild distal patellar tendinopathy. Dictated by: Minesh Solorio M.D. on 06/09/2018 at 12:08 Approved by: Minesh Solorio M.D. on 06/09/2018 at 12:17
== END ==
PROVIDERS: Family Provider Family Medicine; PCP Family Medicine; Visit Provider Orthopaedic Surgery
DX: M25.561 Pain in right knee (principal); M19.90 Unspecified osteoarthritis, unspecified site; M25.461 Effusion, right knee
CPT/HCPCS: 73721

== ENCOUNTER 2018-08-23 08:40 | Day surgery (SDC) | payer MEDICARE, SELFPAY ==
[2017-08-21 00:22] VITALS: BMI 24.7
[2018-08-09 12:38] VITALS: BMI 22.6
[2018-08-23] VITALS (16 sets, daily range): BP systolic 108–149; BP diastolic 60–85; PULSE 64–79; RESP 11–19; TEMP 36.3–36.7; O2SAT 91–97; BMI 23.1
--- NOTE | 2018-08-23 07:37 | DI.RAD.S_ITS ---
PROCEDURE: XR KNEE RT 1TO2V INDICATIONS: prosthesis placement TECHNIQUE: 2 view(s) of the knee acquired. COMPARISON: [facility] BELGICA Roe, XR KNEE ARTHRITIC SERIES RT, 05/29/2018, 15:50. FINDINGS: Bones: Patient is status post knee joint arthroplasty. Hardware components are in expected positions. Visualized bony structures are intact. Soft tissues: Overlying postoperative changes are noted. IMPRESSION: Right knee arthroplasty as above. Dictated by: Sobeida Birmingham M.D. on 08/23/2018 at 14:01 Approved by: Sobeida Birmingham M.D. on 08/23/2018 at 14:01
[2018-08-23] MEDS: LACTATED RINGERS 1,000 ML 42 ML IV (09:23)
[2018-08-23] MEDS: CELECOXIB 200 MG CAPSULE PO (09:25)
[2018-08-23] MEDS: PREGABALIN 75 MG CAPSULE PO (09:32)
[2018-08-23] MEDS: VANCOMYCIN 1,000 MG/200 ML PIGGYBACK 200 MG IV (09:38)
[2018-08-23] MEDS: CEFAZOLIN 2 GM/100 ML FROZ.PIGGY IV ×2 (10:38→18:54)
--- NOTE | 2018-08-23 10:56 | PM.PREOP ---
Pre-operative Note Interval Note History & Physical reviewed/Exam performed by Physician: Yes Changes to H&P: No
--- NOTE | 2018-08-23 10:58 | P.OP_ITS ---
Operative Date/Time/Diagnoses Date of procedure: 08/23/18 Time of procedure: 11:08 Pre-op diagnosis: Right knee OA Post-op diagnosis: same Procedure & Clinicians Procedure: Right total knee arthroplasty Same procedure as scheduled: Yes Indications: The patient has had progressively worsening right knee pain with radiographic changes consistent with arthritis. Non-operative management has failed and the patient has requested total knee replacement. The risks, benefits and alternatives to surgery were discussed with the patient prior to proceeding. Risks discussed included, but were not limited to, failure to relieve pain, stiffness, infection, nerve damage, deep venous thrombosis, pulmonary embolism, stroke, coma, heart attack, permanent paralysis and , as well as the potential need for eventual revision of the prosthetic. Surgeon: Gemma Merino Gasoline Tractor Operator: Yazan Tse Anesthesia Type: General and Spinal Operative Notes Findings: Severe right knee osteoarthritis, good stability and balance Closure Type: primary Specimen(s): none sent Prosthetic devices, grafts, tissues, transplants, or devices: Merino and Nephew Journey BCS 2 size 4 femur, size 4 tibia, poly +10, 32 by 7.5 patella Applied: drain(s) Estimated Blood Loss (mL): 250 Blood products transfused: none Tourniquet time (min): 74 Procedure in detail: The patient was seen in the pre-operative area, where the patient identified the right knee as the operative site and this was marked with my initials. The patient received pre-operative antibiotics, and was taken to the operating room and placed on the operative table in the supine position. After satisfactory anesthesia, a verification lead out was performed. The right leg was encircled with a tourniquet about the proximal thigh, and the leg was prepared from the toes to the tourniquet with ChloroPrep in the usual fashion and draped through sterile drapes. The leg was elevated and exsanguinated with Eschmark bandage and the tourniquet inflated to [250] mmHg pressure. The knee was approached through an approximately 18 cm incision centered over the patella and carried into the knee through a medial parapatellar arthrotomy. A portion of the medial and lateral meniscus was resected. Soft tissue was carefully mobilized around the patella the patella was measured with a caliper. Bone was resected from the patella and the patellar height was reconstituted with up an appropriate sized patellar component. A cover was then placed on the patella. A small amount of additional medial and lateral meniscus was resected. The visionare guide fit well to the distal femur. It looked like an appropriate distal femoral cut and the cut was made without difficulty. The rotation was assessed and the appropriate size femoral guide was placed on the distal femur and finishing cuts were made. There was no evidence of notching. The anterior, posterior and chamfer cuts were then made. The posterior osteophytes and soft tissues were then removed. The posterior capsule was injected with part of a mixture of 60 ml 0.25% Marcaine mixed with 20 ml Exparel for post operative pain control. The remainder of this mixture was injected into the capsule and subcutaneous tissues during cement curing. The tibia was prepared and the visionaire guide fit well to the distal tibia. The rotation was assessed. The patient was placed in extension residual medial and lateral meniscus as well as any residual bone was carefully resected. [No] additional tibia was resected. Hemostasis was achieved especially posteriorly. Additional local was injected into the posterior capsule. The extension gap was assessed and additional releases for gap balancing were performed as necessary. It was checked with the gap health promoter. The femoral component was trial was placed and the notch was finished. Trial tibial and femoral components were then placed and the knee placed through a range of motion. Range of motion was [0-130], with good stability throughout the range. The trials were then removed, and the tibia was finished. The bone was prepared with pulsatile lavage, and dried with a sponge. Cement was applied and the final prosthetics placed. Excess cement was removed during and after cement curing. A brief Betadine soak was performed. After confirming there was no extruded cement posteriorly, the final tibial insert was placed. The knee was copiously irrigated and the tourniquet deflated. Hemostasis was obtained with the Bovie. A drain was placed and brought out superolaterally. The capsule was closed with interrupted Vicryl suture. The subcutaneous layer was closed with barbed sutures, and the skin with a running 3-0 V-Lock suture and Surgical glue. An Aquacel Ag dressing was applied and the patient was taken to recovery having tolerated the procedure well. Complications: none Condition: stable Disposition: Acute Care Plan for aftercare: The patient will be maintained on a standard total knee replacement protocol with weight bearing as tolerated. The patient will receive aspirin and sequential compression devices for DVT prophylaxis. The patient will be discharged home when safe for the home environment.
[2018-08-23] MEDS: TRANEXAMIC ACID 1,000 MG VIAL 1000 MG INJ ×2 (11:10→12:50)
--- NOTE | 2018-08-23 11:28 | SUR.OPER ---
Supine on padded OR bed. Pillow under head, arms secured on padded armboards <90 degree abduction. Safety belt across torso. Non-operative leg secured with tape over blanket over lower leg. Operative leg secured in [place]o/ positioner. Foam padded brace at thigh of operative leg.
[2018-08-23] MEDS: BUPIVACAINE 0.25% W/ EPI 30 ML VIAL 60 ML INJ (11:36)
[2018-08-23] MEDS: POVIDONE-IODINE 15 ML, SODIUM CHLORIDE 0.9% 250 ML TOP (11:36)
[2018-08-23] MEDS: BUPIVACAINE LIPOSOME 266 MG/20 ML VIAL INJ (11:36)
--- NOTE | 2018-08-23 13:40 | SUR.PHASEI ---
Report called to Court
--- NOTE | 2018-08-23 13:58 | SUR.PHASEI ---
Pt transferred to the floor with belongings bag. Spouse present in room. Report to Court. VS stable. IV saline locked. Elastic drsg cdi. HV patent. Dull sensation and weak movement to ADEN feet. Spinal level at l5.
--- NOTE | 2018-08-23 14:05 | SUR.PHASEI ---
Clarified HV clamp order with Dr. Merino. did want HV clamped. Clamp applied. Court Tran notified.
[2018-08-23] MEDS: LACTATED RINGERS 1,000 ML 125 ML IV ×2 (14:27→22:35)
--- NOTE | 2018-08-23 14:54 | PC.NURSE ---
POST OP ARRIVAL 1350 - alert, upright in bed, denies discomfort now, able to wiggle toes slightly, ra 94%, p69, bp 110/69, no nausea and given water and jello, tessa wrap over aquacell cdi, arrived w/unclamped hemovac w/serosang in cannister, called Alli in PACU as post op order stated to clamp x 2 hours and Alli returned and clamped at 1400. Spouse at bedside, oriented to room, call light provided, scds placed.
--- NOTE | 2018-08-23 16:20 | PT.IIE ---
Current Diagnoses Unilateral primary osteoarthritis, right knee (08/23/18) Surgery Performed Operation Date: 08/23/18 10:45 Actual Procedures p Total Knee Arthroplasty(Right) - Gemma Merino MD Surgical History (Last Updated 08/09/18 @ 13:17 by Meri Gannon, RN) History of lumbar fusion (Acute ~2018) Hx of arthroscopy of right knee (Acute) Hx of bilateral cataract extraction (Acute) Medical History (Last Updated 08/09/18 @ 13:17 by Meri Gannon RN) Arthritis (Acute) Conjunctivitis (Acute) GERD (gastroesophageal reflux disease) (Acute) Generalized headaches (Acute) HLD (hyperlipidemia) (Acute) Doherty's neuroma of right foot (Acute) Osteoarthritis (Acute) CVA (cerebral vascular accident) (Acute) Controlled type 2 diabetes mellitus (Acute) Hypertension (Acute) Non-alcoholic fatty liver disease (Acute) Physical Therapy Inpatient Evaluation/Re-Eval M1 PT/OT-IP Prior Functional Status Start: 08/23/18 15:42 Freq: NEEDED Status: Active Protocol: Document 08/23/18 16:20 AB (Rec: 08/23/18 18:13 AB [id number]) Medical Review Prior Functional Status Medical History Reviewed Yes Communication able to make needs known Mobility and Gait stated that she is iindependent with all mobilities and ambulation without AD Social History Household Members spouse Living Arrangements House Number of Floors (Floors) Two Floors Number of Stairs To Enter/Railing? pt stays on main level of the house has 1 step to enter Home Environment High Toilet Walk in Shower Built-In Shower Seat Home Equipment Front Wheel Walker Four Wheel Walker M2 PT-IP Current Condition Start: 08/23/18 15:42 Freq: NEEDED Status: Active Protocol: Document 08/23/18 16:20 AB (Rec: 08/23/18 18:13 AB [id number]) Physical Therapy Current Condition Current Condition Evaluation Date 08/23/18 Treatment Diagnosis s/p R TKA; difficulty in walking Onset Date 08/23/18 Weight Bearing Status Weight Bearing Status Weight Bear as Tolerated M3 PT-IP Subjective Start: 08/23/18 15:42 Freq: NEEDED Status: Active Protocol: Document 08/23/18 16:20 AB (Rec: 08/23/18 18:13 AB [id number]) Subjective Physical Therapy Visit Type Type Initial Evaluation Visit Start Time 16:20 Visit Stop Time 17:35 Total Visit Minutes 75 Number of REFERRAL MANAGEMENT LIAISON Visits 0 Physical Therapy Visit Comments Patient Comments pt agreeable to do PT Therapy Pain Assessment Pain When Pain Assessed During Mobility Pain Present Pain Present Pain Reported Location Right Knee Intensity 3 Scale Used Numeric (1 - 10) Pain Management Techniques Apply Cold Re-positioning Timing of Activity with Medications M4 PT-IP Mobility and Gait Start: 08/23/18 15:42 Freq: NEEDED Status: Active Protocol: Document 08/23/18 16:20 AB (Rec: 08/23/18 18:13 AB [id number]) PT-Bed Mobility Assessment Supine to Sit Supine to Sit Standby Assistance Scooting Scooting to Edge of Bed Standby Assistance PT-Transfer Assessment Sit to and From Stand Sit to and from Stand Minimal Assistance 1 Person Assistance Use of Upper Extremities Equipment Transfer Assistive Device Gait Belt Front Wheeled Walker Orthotic/Prosthetic Devices or Brace: No Transfers Transfer Destination Bedside Commode Transfer Technique Stand Step Pivot Transfer Ability Level of Assist Minimal Assistance 1 Person Assistance Comments Mobility Comments BP supine: 123/72 pt completed supine to sit SBA. C/O feeling oozy. BP 137/77 pt completed sit to stand min A and stated that she is voiding. instructed to sit back down. placed bedside commode next to pt. pt completed stand step transfer to the commode min A using FWW . pt completed sit to stand from the commode min A and was able to maintain standing using FWW for support SBA while NAC assisted with hygiene care and brief management. Gait Assessment Gait Gait Assistance Required: Contact Guard Assist Distance (Feet) 12 Able to Maintain Weight Bearing Status Yes During Gait Assistive Devices Assistive Device Gait Belt Front Wheeled Walker Orthotic/Prosthetic Devices or Brace: No Gait Deviations General Gait Pattern Antalgic Decreased Stride Length Decreased Feet Clearance Factors Limiting Gait Function Factors Limiting Gait Function Decreased Activity Tolerance Decreased Strength Limited Range of Motion Pain Poor Balance Comments Gait Comments pt ambulated from the commode to the chair using FWW CGA ~ 12 ft. pt agreed to sit up on chair. positioned pt on chair. ice pack provided. set pt up for dinner. call light and table placed within reach. BP at end of tx session: 131/ 83 PT-Balance Assessment Sitting Balance and Reactions Static Sitting Balance Ability Good Dynamic Sitting Balance Ability Good Standing Balance and Reactions Static Standing Balance Ability Fair Dynamic Standing Balance Ability Fair Device Used FWW M5 PT-IP Objective Assessments Start: 08/23/18 15:42 Freq: NEEDED Status: Active Protocol: Document 08/23/18 16:20 AB (Rec: 08/23/18 18:13 AB [id number]) Orientation Orientation/Cognition Level of Alertness Alert Orientation Name Place Situation Language Function Ability No Deficits Noted Safety Awareness Understands Safety Issues Memory Description Short Term Impaired Gross Range of Motion Lower Extremity ROM Assessment Right Impaired Impairments R knee flexion: ~ 90 deg R knee extension: 10 deg lacking in neutral Strength Lower Extremity Strength Assessment Right Impaired Knee 3+/5 Coordination Assessment Gross Coordination Gross Coordination WNL Sensation Assessment Sensation Gross Sensation Right LE Impaired Comments Sensation Comments decrease sensation on R thigh Muscle Tone Muscle Tone WNL Yes M6 PT-IP Treatment Start: 08/23/18 15:42 Freq: NEEDED Status: Active Protocol: Document 08/23/18 16:20 AB (Rec: 08/23/18 18:13 AB [id number]) Physical Therapy Treatment Exercises Exercises Heel Slides Education Education Provided Precautions Weight Bearing Status Post-Op Packet Safety M7 PT-IP Assessment and Plan Start: 08/23/18 15:42 Freq: NEEDED Status: Active Protocol: Document 08/23/18 16:20 AB (Rec: 08/23/18 18:13 AB [id number]) PT Summary Assessment and Plan Potential Rehabilitation Potential Good Status of Condition at Evaluation Stable Summary Impairments Pain ROM Strength Balance Coordination Sensation Bed Mobility Transfers Gait Activity Tolerance Assessment Summary pt requiring one person assist with mobility and will likely progress during hospital stay . pt plans to go home with spouse to assist her. will conduct caregiver training when appropriate and stair climbing training will be conducted prior to d/c. Goals Bed Mobility Goal Independent Transfer Goal Independent Front Wheeled Walker Gait Goal Independent Front Wheel Walker Gait Distance 200 Other Goals up/down 1 step using FWW SBA Days to Meet Goals 3 Frequency of Treatment Frequency Of Treatment Twice a Day Treatment Plan Physical Therapy Treatment Plan Bed Mobility Training Transfer Training Gait Training Therapeutic Exercise Balance Retraining Post Op Education Discharge Planning Hot or Cold Pack Neuromuscular Re-ed Coordination Retraining Manual Therapy Other Recommendations and Next Treatment ambulation, stair climbing Focus Recommendations To Nursing Amount of Assist Needed 1 Person Assist Discharge Recommendations PT Discharge Recommendations Home with Assistance Outpatient PT
--- NOTE | 2018-08-23 17:47 | RT ---
1550 Patient is resting well in bed, no dyspnea. BP 123/76- RR 14 - Pu;se 64- Saturation 95% on RA. BS CTA. Patient is S/P right knee surgery. Denies respiratory history, quit smoking 30 years ago. Performs well with DB&SMI maneuver; has blow valve from pre-op conference and pperforms well with it as well. No Respiratory Intervention needed.
[2018-08-23] MEDS: OXYCODONE IR 5 MG TABLET PO (18:54)
[2018-08-23] MEDS: DOCUSATE 100 MG CAPSULE PO (21:00)
[2018-08-23] MEDS: METFORMIN HCL 500 MG TABLET PO (21:00)
[2018-08-23] MEDS: LISINOPRIL 10 MG TABLET PO (21:00)
[2018-08-23] MEDS: ATORVASTATIN 20 MG TABLET 40 MG PO (21:00)
[2018-08-23] MEDS: ASPIRIN EC 81 MG TABLET PO (21:00)
[2018-08-24] VITALS: BP 119/64; PULSE 57; RESP 16; TEMP 36.4; O2SAT 94
[2018-08-24] MEDS: CEFAZOLIN 2 GM/100 ML FROZ.PIGGY IV (03:29)
[2018-08-24 04:00] VITALS: BP 110/77; PULSE 61; RESP 16; TEMP 36.3; O2SAT 94
[2018-08-24 07:12] LABS: Hematocrit 33.4 % (36-46); Hemoglobin 11.2 g/dL (12.0-16.0)
[2018-08-24 08:00] VITALS: BP 116/75; PULSE 54; RESP 18; TEMP 36.3; O2SAT 96
[2018-08-24] MEDS: DOCUSATE 100 MG CAPSULE PO (08:27)
[2018-08-24] MEDS: CHOLECALCIFEROL (VITAMIN D3) 1,000 UNIT TABLET 1000 UNIT PO (08:27)
[2018-08-24] MEDS: METFORMIN HCL 500 MG TABLET PO (08:27)
[2018-08-24] MEDS: MELOXICAM 7.5 MG TABLET 15 MG PO (08:28)
[2018-08-24] MEDS: ASPIRIN EC 81 MG TABLET PO (08:28)
[2018-08-24] MEDS: OXYCODONE IR 5 MG TABLET PO (08:32)
--- NOTE | 2018-08-24 08:32 | P.DS_ITS ---
History of Present Illness Date Patient Seen: 08/24/18 Time Patient Seen: 08:31 Chief complaint: [id number] Narrative: Please see HPI recorded in the chart. Discharge Providers Date of admission: 08/23/18 08:40 Discharge Date: 08/24/18 Primary care physician: Akhil Everett MD Consults: 08/23/18 07:37 Consult to Anesthesiology Routine Comment: Consulting Provider: Anesthesiologist Reason for consultation: Regional block for post operative pain control Has provider been notified: Yes 08/23/18 13:56 Consult to Discharge Planning Routine Comment: Consult to Physical Therapy Evaluate & Treat Comment: Physician Instructions: postop TKA protocol Consult to Respiratory Therapy Evaluate & Treat Comment: Physician Instructions: Evaluate and treat Discharge provider: Lori Field PA-C Summary Discharge Diagnosis: s/p right total knee arthroplasty Hospital Course: The patient has had progressively worsening right knee pain with radiographic changes consistent with arthritis. Non-operative management has failed and the patient has requested total knee replacement. The risks, benefits and alternatives to surgery were discussed with the patient prior to proceeding. Risks discussed included, but were not limited to, failure to relieve pain, stiffness, infection, nerve damage, deep venous thrombosis, pulmonary embolism, stroke, coma, heart attack, permanent paralysis and , as well as the potential need for eventual revision of the prosthetic. After obtaining informed consent the patient was taken to the operating room 08/23/18 for right total knee arthroplasty by Dr. Merino. She tolerated the procedure well with no complications. She was admitted to the floor and has been progressing well postoperatively. Pain has been well controlled. She has mobilized about the room and is voiding independently. Had some residual effects of the spinal yesterday that has resolved POD#1. She is tolerating a diet. Anticipate discharge to [facility] today pending clearance by physical therapy. Status at Discharge Cognitive/behavioral status at discharge: oriented Functional status at discharge: uses cane/walker Overall status at discharge: patient is progressing back to baseline Exam Vital Signs (past 8 hours): - 08/24/18 04:00 Temperature 97.4 F L Pulse Rate 61 Respiratory Rate 16 Blood Pressure 110/77 Pulse Oximetry 94 Oxygen Delivery Method Room Air Oxygen Flow Rate 0 Narrative Exam Narrative: Pleasant 73 year old female resting comfortably in bed, alert and oriented in no acute distress. Dressing in place over right knee is clean, dry, and intact. Intact ankle flexion/extension. Sensation intact to light touch. Palpable pedal pulse. Calves soft, compressible bilaterally. Objective Labs Result Diagrams: 08/24/18 06:35 Labs: Laboratory Results - last 24 hr 08/24/18 06:35 Hgb 11.2 L Hct 33.4 L Discharge Plan Discharge Plan Patient Disposition: Home Discharge comment: Discharge to home after cleared by physical therapy Discharge Med Rec/Prescriptions Prescriptions: New aspirin 81 mg Tablet,Delayed Release (Dr/Ec) 81 mg PO BID Qty: 60 RF: 0 docusate sodium [DOK] 100 mg Capsule 100 mg PO BID Qty: 60 RF: 0 oxycodone 5 mg Tablet 5 mg PO Q3HR PRN (Reason: Pain, Moderate (4-6)) Qty: 1 RF: 0 Continued cholecalciferol (vitamin D3) [Vitamin D3] 1,000 unit Capsule 1,000 unit PO DAILY Qty: 0 RF: 0 meloxicam 15 MG tablet 15 mg PO QDAY Qty: 90 RF: 1 lisinopril 10 mg Tablet 10 mg PO BEDTIME RF: 0 metformin 500 mg Tablet 500 mg PO BID RF: 0 atorvastatin 40 mg Tablet 40 mg PO BEDTIME RF: 0 ranitidine HCl 150 MG tablet 150 mg PO BID RF: 0 Discontinued ibuprofen 200 mg Capsule 200 mg PO DAILY PRN (Reason: Headache) RF: 0 Follow up/Referrals: Gemma Merino MD [Physician] - Provider Discharge Instructions Activity: Weight bear as tolerated. Recommend walker for support. Continue ankle pumps. Cold/Heat Therapy: Ice packs as needed. Skin/Wound/Dressing Care Report to your healthcare provider any signs of infection, such as:: chills, fever, night sweats, unusual drainage and unusual redness Dressing: TIGRE wrap may be removed tomorrow. Please leave Aquacel dressing in place, it will be removed at your postoperative visit. Please let the office know if dressing becomes saturated. Visit Report/Discharge Packet Instructions: DI for Knee Replacement Discharge Data Primary Care Provider: Akhil Everett Attending Provider: Gemma Merino Admit Date/Time: 08/23/18 08:40 Quality VTE Deep Vein Thrombosis/Pulmonary Embolism Present on Admission: No
--- NOTE | 2018-08-24 09:25 | PT.IPTN ---
Current Diagnoses Unilateral primary osteoarthritis, right knee (08/23/18) Surgery Performed Operation Date: 08/23/18 10:45 Actual Procedures p Total Knee Arthroplasty(Right) - Gemma Merino MD Physical Therapy Treatment Note M2 PT-IP Current Condition Start: 08/23/18 15:42 Freq: NEEDED Status: Active Protocol: Document 08/23/18 16:20 AB (Rec: 08/23/18 18:13 AB [id number]) Physical Therapy Current Condition Current Condition Evaluation Date 08/23/18 Treatment Diagnosis s/p R TKA; difficulty in walking Onset Date 08/23/18 Weight Bearing Status Weight Bearing Status Weight Bear as Tolerated M3 PT-IP Subjective Start: 08/23/18 15:42 Freq: NEEDED Status: Active Protocol: Document 08/24/18 09:25 GGD (Rec: 08/24/18 11:25 GGD [email or web address]) Subjective Physical Therapy Visit Type Type Treatment Note Visit Start Time 09:00 Visit Stop Time 09:25 Total Visit Minutes 25 Number of STIFF LEG DERRICK OPERATOR Visits 1 Physical Therapy Visit Comments Patient Comments Pt hopes to go home today. Therapy Pain Assessment Pain When Pain Assessed At Rest Pain Present Pain Present Denied Pain M4 PT-IP Mobility and Gait Start: 08/23/18 15:42 Freq: NEEDED Status: Active Protocol: Document 08/24/18 09:25 GGD (Rec: 08/24/18 11:25 GGD [email or web address]) PT-Transfer Assessment Sit to and From Stand Sit to and from Stand Standby Assistance Use of Upper Extremities Equipment Transfer Assistive Device Gait Belt Front Wheeled Walker Orthotic/Prosthetic Devices or Brace: No Transfers Transfer Destination Chair Transfer Ability Level of Assist Contact Guard Assistance Use of Upper Extremities Gait Assessment Gait Gait Assistance Required: Standby Assistance Contact Guard Assist Distance (Feet) 220 Able to Maintain Weight Bearing Status Yes During Gait Assistive Devices Assistive Device None Gait Belt Front Wheeled Walker Orthotic/Prosthetic Devices or Brace: No Gait Deviations General Gait Pattern Within Normal Limits Factors Limiting Gait Function Factors Limiting Gait Function Decreased Activity Tolerance Decreased Strength Limited Range of Motion Pain Poor Balance Comments Gait Comments Pt ambulated 160 feet with FWW with CGA and then 60 feet without AD with SBA. Stair Climbing Assessment Evaluation Level of Assist On Stairs Standby Assistance Devices Stair Climbing Assistive Devices Front Wheel Walker Technique/Endurance Stair Climbing Direction Ascend and Descend Stair Climbing Technique Step to Step Number of Steps Climbed 1 Stair Climbing Set # Repetitions (reps) 2 M5 PT-IP Objective Assessments Start: 08/23/18 15:42 Freq: NEEDED Status: Active Protocol: Document 08/23/18 16:20 AB (Rec: 08/23/18 18:13 AB [id number]) Orientation Orientation/Cognition Level of Alertness Alert Orientation Name Place Situation Language Function Ability No Deficits Noted Safety Awareness Understands Safety Issues Memory Description Short Term Impaired Gross Range of Motion Lower Extremity ROM Assessment Right Impaired Impairments R knee flexion: ~ 90 deg R knee extension: 10 deg lacking in neutral Strength Lower Extremity Strength Assessment Right Impaired Knee 3+/5 Coordination Assessment Gross Coordination Gross Coordination WNL Sensation Assessment Sensation Gross Sensation Right LE Impaired Comments Sensation Comments decrease sensation on R thigh Muscle Tone Muscle Tone WNL Yes M6 PT-IP Treatment Start: 08/23/18 15:42 Freq: NEEDED Status: Active Protocol: Document 08/24/18 09:25 GGD (Rec: 08/24/18 11:25 GGD [email or web address]) Physical Therapy Treatment Exercises Exercises Ankle Pumps Quad Sets Heel Slides Seated Knee Flexion/Extension M7 PT-IP Assessment and Plan Start: 08/23/18 15:42 Freq: NEEDED Status: Active Protocol: Document 08/24/18 09:25 GGD (Rec: 08/24/18 11:25 GGD [email or web address]) PT Summary Assessment and Plan Summary Assessment Summary Pt improving with mobility. She was safe and stable with stair mobility. She was able to progress gait distance with and witout FWW. She had good stability with gait without AD . Pt safe for home D/C when medically stable. Frequency of Treatment Frequency Of Treatment Twice a Day Treatment Plan Physical Therapy Treatment Plan Bed Mobility Training Transfer Training Gait Training Therapeutic Exercise Balance Retraining Post Op Education Discharge Planning Hot or Cold Pack Neuromuscular Re-ed Coordination Retraining Manual Therapy Recommendations To Nursing Amount of Assist Needed 1 Person Assist Discharge Recommendations PT Discharge Recommendations Home with Assistance Outpatient PT
--- NOTE | 2018-08-24 09:38 | PC.NURSE ---
Addendum entered by oCurt Houston R.N. 08/24/18 11:31: DC - when ready, remaining belongings gathered, tsf to wc and delivery room supervisor escorted to spouse's car. Addendum entered by Court Houston R.N. 08/24/18 11:04: DC - reviewed dc instructions, paperwork provided, scripts previously filled thru [facility], belongings gathered, including glasses, clothing, bag, own fww by spouse, priority for [address] [place] [address] provided. Original Note: AM NOTE - pt is alert, states r knee pain 1 on scale 0/10 while in bed, no numbness feet, still some residual numbness over the incisional area, aquacell dsg w/small spot shadow drainage w/tessa wrap over, denies nausea, passing flatus, hr reg, 58, ra 94%, bp 116/75, assisted up w/fww to chair for breakfast, denied dizziness, Lori RODRIGUEZ in this am and pt will dc home, hemovac suction released and dc'd, phys therapy in and pt ambulated, spouse at side, cleared by PT, plan for [address] [place] and priority board provided.
--- NOTE | 2018-08-24 10:06 | CM.DANOTE ---
Patient is a 73 year old female who was admitted on 08/23/18 for Right Total Knee. Pt has [facility] and [employer] for insurance and her PCP is Dr. Everett. EMR was reviewed. Per Ortho MD, pt tolereated procedure well and is medically stable to d/c home today and no identified barriers to discharge. Per PT, recommending safe d/c home with spouse assist and outpt PT when stable and will complete stairs and CG training today prior to d/c. Per RN, pt trying to catch the [address] ferry back to [place]. Per patient and spouse they live on [address] and the pt is Independent with ADL's at baseline and denies any hx of HH or SNF. Pt's DPOA is her spouse and he is available for assist at d/c once they get home. Pt does not anticipate any SW needs and preference is to catch the ferry home today before lunch after final PT. Plan: Patient to d/c home via spouse POV today around 1100 to catch the [address] ferry back to [place]. No SW needs at this time. JAIME Lee Discharge Planning/Care Management CM Discharge Assessment Start: 08/24/18 09:57 Freq: Status: Active Protocol: Document 08/24/18 09:57 BF (Rec: 08/24/18 10:06 [id number]) Discharge Planning Assessment Assigned Irrigationist JAIME Leslie DPOA/Assigned Designee Name spouse Yazan Contact Information [phone] Advance Directives? Yes Advance Directives on File Yes History Provided By Patient Significant Other Medical Record Has Patient been admitted in last 30 No days? Prior Living Arrangements House Household Members spouse Type of transporation used prior to Drives own vehicle admit Independent with ADL's Yes Is patient alert and oriented? Yes Caregiver for Another No Patient/Family Preference OP PT Therapy Comment Per PT, home with spouse assist and outpt TP Barriers to Discharge No Discharge Plan Home Transportation Arrangement Spouse will provide transport home. Referrals Initiated None needed Additional Comment Patient resides on [place], will most likely need priority boarding pass. Whiteboard Updated in Patient Room with Yes name and ext. # of Irrigationist Review Status In Process Please Provide Date Initial DC 08/24/18 Assessment Was Performed Next Review Type Continued Stay Review Pre-Anesthesia Assessment Start: 08/09/18 12:38 Freq: Status: Active Protocol: Document 08/09/18 12:38 [facility] (Rec: 08/09/18 13:28 [facility] [id number]) Pre-Anesthesia Assessment Patient Also Known As Peraza (AKA) Patient Information Reviewed Via Phone Assessment Assessment Completed With Patient Diagnostic Results BMP/CMP CBC EKG Comment Outside labs/EKG scanned to record Primary Care Provider Akhil Everett Seen Specialist in Last 12 Months Yes Specialist Seen Orthopedist Primary Language Sami Preferred Language Sami Upper Leather Cutter Required No Height 167.64 cm Weight 63.503 kg Body Mass Index (BMI) 22.6 Hearing Ability Normal Visual Assist Magnifying Glass Dentition Type Teeth, Natural Present Barriers to Learning None Other Aids No Hx Anesthesia Reactions No Hx Family Anesthesia Reaction No Hx Malignant Hyperthermia No Hx Blood Transfusions Yes: r/t vaginal delivery 1967 Hx Blood Transfusion Reaction No Anesthesia Review Requested No User Experience Researcher No alcohol intake current alcohol intake frequency holidays/special occasions only Smoking Status Former smoker how long ago did patient quit smoking Quit 1988 Substance Use Type does not use Pain Present Pain Reported Musculoskeletal Symptoms Back Pain Difficulty Walking Joint Pain History of Falling (Recent or History of No ) Patient is completely paralyzed or No completely immobile Mental Status Oriented to own ability Is patient on oxygen? No Does patient have MARCIAL/SOB No Hx Sleep Apnea No Currently Taking a Beta Carlos Manuel No Can You Climb a Flight of Stairs Without Yes SOB Hx Chest Pain No Hx SOB No Hx Syncope or Dizziness Yes: Hx of pre-syncope 2018 Anti-Coagulant Therapy No Has a Guest Services Lead No Cardiac Testing No Hx Pacemaker/ICD No Pacemaker Rep Required? No Cardiac Clearance Received Not Applicable Diet Type At Home Regular dysphagia No Urinary Catheter Present No Hx Urinary Self Catheterization No Diabetes Yes: Pt checks once every other week HgbA1C 6.4 Date 06/05/18 Patient No Lactating No Hx Drug Resistant Organism No Presence of External or Internal Medical No: Bilat eye lens, lumbar Devices hardware Have you traveled outside the [place] in the last 30 days? Marital Status Lives With spouse Prior Living Arrangements House Number of Floors (Floors) Two Floors Support System Child/Children Spouse Does the Patient Have Assistance After Yes Surgery Comment Lives on [address] Feels Safe in Current Environment Yes Been Physically Hurt or Threatened By a No Person in Current Environment Do you have thoughts of harming yourself None or others? Are you currently considering suicide? No Do you have a plan to hurt yourself or No Plan others? Do You Have Any Spiritual Beliefs That No May Affect Your HC Choices? Do You Have Any Cultural Practices That No May Affect Your HC Choices? Spiritual Referral None Comment Christian Who Can We Speak to About Patient's Care Family, friends Identifying Code for Release of Patient Declines to issue Information Health Care Proxy/Next of Kin Jose () Health Care Proxy Emergency Contact Name Jeannie De Los Santos (daughter) Emergency Contact Advance Directives? Yes Advance Directives on File Yes Power of Couture Alterations Dressmaker Yes Power of Couture Alterations Dressmaker Name oJse Norman Power of Couture Alterations Dressmaker PAC Instructions Do not shave/clip surgical site Durable medical equipment Medications to take/avoid Nasal antibiotic No ETOH/petroleum product on skin DOS NPO Post-op transportation Pre-surgical wash Sensory aids Sturdy shoes/comfortable clothes Do not bring valuables and remove jewelry
== END 2018-08-24 11:31 | disposition home or self-care (01) ==
LOC: AC 08-24 08:31 → OR 08-24 14:23
PROVIDERS: Family Provider Family Medicine; PCP Family Medicine; Visit Provider Orthopaedic Surgery
PROC: 0SRC0JZ Replacement of Right Knee Joint with Synthetic Substitute, Open Approach (ICD-10-PCS; CPT 27447; principal; 2018-08-23 10:45)
DX: M17.11 Unilateral primary osteoarthritis, right knee (principal); E11.9 Type 2 diabetes mellitus without complications; I10 Essential (primary) hypertension; K76.89 Other specified diseases of liver; Z79.84 Long term (current) use of oral hypoglycemic drugs
CPT/HCPCS: 27447; 36415; 73560; 82962; 85014; 85018; 97116; 97161; 97530; C1776; C9290; J0690; J1100; J2405; J2704

== ENCOUNTER 2021-06-09 08:36 | Emergency (ER) | payer MEDICARE, SELFPAY ==
[2018-08-23 09:09] VITALS: BMI 23.1
[2021-06-09] VITALS (9 sets, daily range): BP systolic 133–161; BP diastolic 64–77; PULSE 56–79; RESP 12–22; TEMP 36.9; O2SAT 95–97; BMI 19.3
--- NOTE | 2021-06-09 08:50 | ED.ABDPAIN ---
HPI - Abdominal Pain General Chief Complaint: Nausea/Vomiting/Diarrhea Stated Complaint: Diarrhea/nausea/faint x2 years Time Seen by Provider: 06/09/21 08:47 History of Present Illness HPI narrative: 75F former smoker with history of hypertension, type 2 diabetes and chronic abdominal issues presents with her for evaluation of nausea, vomiting and diarrhea. She states that she has been having these symptoms largely for 2 years if not longer and recently had colonoscopy which was largely unremarkable. She denies any change in her medications or diet. She denies any recent antibiotics, exposure to bad food or recent travel. She states the difference today is that last night she felt faint for a bit which has since resolved. She denies any specific pattern but states it seemed to perhaps be worse when she stood up. She denies any chest pain or shortness of breath. She has had no fever chills. She denies any urinary symptoms such as dysuria, frequency or urgency. She denies any obvious blood in her stool. She had initially presented to the walk-in clinic but was sent here for a further and more in-depth evaluation Related Data Home Medications Medication Instructions Recorded Confirmed cholecalciferol (vitamin D3) 25 1,000 unit PO DAILY #0 07/22/10 08/23/18 mcg (1,000 unit) capsule (Vitamin D3) lisinopril 10 mg tablet 10 mg PO BEDTIME 08/22/17 08/23/18 metformin 500 mg tablet 500 mg PO BID 08/22/17 08/23/18 atorvastatin 40 mg tablet 40 mg PO BEDTIME 08/09/18 08/23/18 ranitidine HCl 150 mg tablet 150 mg PO BID 08/09/18 08/23/18 Previous Rx's Medication Instructions Recorded meloxicam 15 mg tablet 15 mg PO QDAY #90 mg 09/13/16 aspirin 81 mg tablet,delayed 81 mg PO BID #60 tab 08/24/18 release docusate sodium 100 mg capsule 100 mg PO BID #60 cap 08/24/18 (DOK) oxycodone 5 mg tablet 5 mg PO Q3HR PRN #1 tab 08/24/18 amoxicillin 875 mg-potassium 1 tab PO Q12H #20 tab 06/09/21 clavulanate 125 mg tablet ondansetron 4 mg disintegrating 4 mg PO TID-QID PRN #10 tab 06/09/21 tablet Allergies Allergy/AdvReac Type Severity Reaction Status Date / Time latex Allergy Severe Rash Verified 06/09/21 08:58 ciprofloxacin [CIPROFLOXACIN] Allergy Intermediate HIVES Verified 06/09/21 08:58 Review of Systems Review of Systems Narrative: GENERAL: See HPI HEENT: Denies sinus pain, ear pain, sore throat, difficulty swallowing, dizziness. RESPIRATORY: Denies dyspnea, cough, wheezing, hemoptysis, sputum. CARDIOVASCULAR: See HPI GASTROINTESTINAL: See HPI : Denies dysuria, frequency, incontinence, hematuria, urinary retention. MUSCULOSKELETAL: denies weakness, joint pain, or bony pain SKIN: Denies rash, skin lesions, or other NEUROLOGIC: Denies weakness, headache, numbness, change in speech, confusion, seizures, incoordination. PSYCHIATRIC: No concerning psychosocial issues. 12 point review of systems is negative except for those stated above Patient History Medical History Arthritis Conjunctivitis Controlled type 2 diabetes mellitus CVA (cerebral vascular accident) Generalized headaches GERD (gastroesophageal reflux disease) HLD (hyperlipidemia) Hypertension Doherty's neuroma of right foot Non-alcoholic fatty liver disease Osteoarthritis Surgical History History of lumbar fusion (~2018) Hx of arthroscopy of right knee Hx of bilateral cataract extraction Family History Brother Diabetes mellitus Father Mental health problem Alzheimer's disease Grandmother Diabetes mellitus Mother Cancer Grandmother Mental health problem Sister Age: 85 Cancer Social History household members: spouse Smoking Status: Former smoker alcohol intake: current Smoking Status: Former smoker alcohol intake frequency: holidays/special occasions only Substance Use Type: does not use Exam Narrative Exam Narrative: GENERAL: [75 year old patient appears stated age. Thin, slightly pale, no obvious distress HEAD: Atraumatic. Normocephalic. EYES: Pupils equal round and reactive. Extraocular motions intact. No scleral icterus. No injection or drainage. ENT: Nose without bleeding, purulent drainage. Throat without erythema, tonsillar hypertrophy or exudate. Airway patent. NECK: Trachea midline. Non tender CARDIOVASCULAR: Regular rate and rhythm without murmurs, gallops, or rubs. RESPIRATORY: Clear to auscultation. Breath sounds equal bilaterally. No wheezes, rales, or rhonchi. GASTROINTESTINAL: Abdomen soft, non-tender, nondistended. EXTREMITIES: No edema or joint tenderness. BACK: Nontender without deformity or crepitance. No flank tenderness. NEURO: AOx3. SKIN: No rash or erythema of visible areas Initial Vital Signs Initial Vital Signs: Vital Signs Temperature 98.4 F 06/09/21 08:58 Pulse Rate 79 06/09/21 08:58 Respiratory Rate 18 06/09/21 08:58 Blood Pressure 161/77 H 06/09/21 08:58 Pulse Oximetry 96 06/09/21 08:58 Course Orders Ordered: ED Orders 06/09/21 11:40 Urinalysis and Microscopic Stat 06/09/21 12:30 C Diff [Clostridium Difficile Tox PCR] Stat Discontinued Medications Sodium Chloride (Normal Saline 0.9%) 1,000 mls @ 1,000 mls/hr IV BOLUS ONE Stop: 06/09/21 09:46 Last Infusion: 06/09/21 10:20 Dose: 0 mls/hr Documented by: Admin: 06/09/21 09:13 Dose: 1,000 mls/hr Documented by: DELTA Vital Signs Vital signs: Vital Signs - 8 hr 06/09/21 11:31 06/09/21 12:00 06/09/21 12:01 Pulse Rate 67 56 L 56 L Respiratory Rate 12 22 Blood Pressure 133/69 148/65 H Pulse Oximetry 96 95 06/09/21 14:26 06/09/21 14:27 06/09/21 14:30 Pulse Rate 60 63 Respiratory Rate Blood Pressure 142/64 H Pulse Oximetry 97 97 96 MDM - Abdominal Pain Lab Data Result diagrams: 06/09/21 08:55 06/09/21 08:55 Labs: Lab Results 06/09/21 06/09/21 06/09/21 Range/Units 08:55 08:55 08:55 WBC 6.0 (4.5-11.0) X10^3/uL RBC 4.04 (4.0-5.2) X10^6/uL Hgb 12.2 (12.0-16.0) g/dL Hct 36.1 (36-46) % MCV 89.4 (80-100) fL MCH 30.2 (26-34) PG MCHC 33.8 (30-36) % RDW 14.3 (11.6-14.8) % Plt Count 162 (150-400) X10^3/uL Neut % (Auto) 64.0 (50-75) % Lymph % (Auto) 27.4 (25-40) % Fountain % (Auto) 7.4 (3-14) % Eos % (Auto) 0.8 L (2-4) % Baso % (Auto) 0.4 (0-2) % Neut # (Auto) 3900 (2443-7690) /uL Lymph # (Auto) 1600 (9173-1414) /uL Fountain # (Auto) 400 (0-900) /uL Eos # (Auto) 0 (0-450) /uL Baso # (Auto) 0 (0-100) /uL Sodium 142 (137-145) mmol/L Potassium 3.3 L (3.4-5.1) mmol/L Chloride 106 (98-107) mmol/L Carbon Dioxide 27 (22-32) mmol/L BUN 14 (7-17) mg/dL Creatinine 0.86 (0.52-1.04) mg/dL Estimated GFR > 60.0 (>60) mL/min BUN/Creatinine Ratio 16.3 (6-22) Glucose 113 H (80-110) mg/dL Calcium 8.8 (8.4-10.2) mg/dL Total Bilirubin 0.9 (0.2-1.3) mg/dL AST 34 (14-36) IU/L ALT 19 (<35) IU/L Alkaline Phosphatase 58 (38-126) U/L Total Creatine Kinase 69 (30-135) U/L CK-MB (CK-2) TNP CK-MB (CK-2) Rel Index TNP Troponin I < 0.012 (0.01-0.034) ng/mL Total Protein 6.8 (6.3-8.2) g/dL Albumin 3.9 (3.5-5.0) g/dL Globulin 2.9 (1.7-4.1) g/dL Albumin/Globulin Ratio 1.3 (1.0-2.8) Urine Color Urine Appearance Urine pH (4.5-8.0) Ur Specific [place] (1.000-1.035) Urine Protein (Negative) Urine Glucose (UA) (Negative) g/dL Urine Ketones (NEGATIVE) Urine Occult Blood (Negative) Urine Nitrate (Negative) Urine Bilirubin (NEGATIVE) Urine Urobilinogen (0.2) E.U./dL Ur Leukocyte Esterase (NEGATIVE) Urine RBC (0-5/HPF) Urine WBC (0-5/HPF) Ur Squamous Epith Cells (0-5/HPF) Amorphous Sediment Urine Bacteria (None) Ur Culture Indicated? C. difficile Tox (PCR) (Negative) 06/09/21 06/09/21 Range/Units 11:40 12:30 WBC (4.5-11.0) X10^3/uL RBC (4.0-5.2) X10^6/uL Hgb (12.0-16.0) g/dL Hct (36-46) % MCV (80-100) fL MCH (26-34) PG MCHC (30-36) % RDW (11.6-14.8) % Plt Count (150-400) X10^3/uL Neut % (Auto) (50-75) % Lymph % (Auto) (25-40) % Fountain % (Auto) (3-14) % Eos % (Auto) (2-4) % Baso % (Auto) (0-2) % Neut # (Auto) (8943-9014) /uL Lymph # (Auto) (8566-5275) /uL Fountain # (Auto) (0-900) /uL Eos # (Auto) (0-450) /uL Baso # (Auto) (0-100) /uL Sodium (137-145) mmol/L Potassium (3.4-5.1) mmol/L Chloride (98-107) mmol/L Carbon Dioxide (22-32) mmol/L BUN (7-17) mg/dL Creatinine (0.52-1.04) mg/dL Estimated GFR (>60) mL/min BUN/Creatinine Ratio (6-22) Glucose (80-110) mg/dL Calcium (8.4-10.2) mg/dL Total Bilirubin (0.2-1.3) mg/dL AST (14-36) IU/L ALT (<35) IU/L Alkaline Phosphatase (38-126) U/L Total Creatine Kinase (30-135) U/L CK-MB (CK-2) CK-MB (CK-2) Rel Index Troponin I (0.01-0.034) ng/mL Total Protein (6.3-8.2) g/dL Albumin (3.5-5.0) g/dL Globulin (1.7-4.1) g/dL Albumin/Globulin Ratio (1.0-2.8) Urine Color Yellow Urine Appearance Clear Urine pH 5.5 (4.5-8.0) Ur Specific [place] <=1.005 (1.000-1.035) Urine Protein Negative (Negative) Urine Glucose (UA) Negative (Negative) g/dL Urine Ketones Negative (NEGATIVE) Urine Occult Blood Negative (Negative) Urine Nitrate Negative (Negative) Urine Bilirubin Negative (NEGATIVE) Urine Urobilinogen 0.2 (0.2) E.U./dL Ur Leukocyte Esterase Negative (NEGATIVE) Urine RBC None seen (0-5/HPF) Urine WBC 0-1/hpf (0-5/HPF) Ur Squamous Epith Cells 1-5 /hpf (0-5/HPF) Amorphous Sediment 1+ Urine Bacteria None seen (None) Ur Culture Indicated? Cult not indicated C. difficile Tox (PCR) Negative for c. diff (Negative) Imaging Data CT scan - abdomen/pelvis: Radiologist's Impression: Johanne Norman??75??F??1945 ? Allergy/Adv: latex, ciprofloxacin Close Abdomen/Pelvis CT (Signed) Domenic Doyle - 06/09/21 Knee X-Ray (Signed) Sobeida Birmingham - 08/23/18 Knee MRI (Signed) Minesh Solorio - 06/09/18 Outside EKG 06/05/[address] (Signed) Chaim Hanna - 08/21/17 Chest X-Ray (Signed) Pino Vickers - 08/20/17 Telemetry Strips 07/18/15 Radiology - Historical 07/18/15 Launch?[address] [address] [address] Scan Report Signed Patient: Johanne Norman MR#: [id number] : 1945 Acct:[id number] Age/Sex: 75 / F Date of Service: 06/09/21 Loc: ED Accession Number: [id number] ?? Procedure: CT abdomen pelvis w con Ordering Provider: Stephane Stark D.O. PROCEDURE:? CT ABDOMEN PELVIS W CON ? INDICATIONS:? N/V abdominal pain ? TECHNIQUE:? After the administration of intravenous contrast, axial sections acquired from the lung bases to the pubic symphysis.? Coronal and sagittal reformats were performed.? For radiation dose reduction, the following was used:? automated exposure control, adjustment of mA and/or kV according to patient size.? ? COMPARISON:? None. ? FINDINGS: ? Lower thorax: The lung bases are clear.? Heart size normal.? No hiatal hernia. ? Liver:? Normal in size and attenuation. No contour deformity present. ? Biliary system:? No calcified cholelithiasis or pericholecystic inflammation.? No intra or extrahepatic bile duct dilatation. ? Pancreas:? Unremarkable without mass or inflammation evident. ? Spleen:? Normal in size and density. ? Adrenals:? Small 1.2 cm left adrenal nodule is nonspecific ? Reproductive system:? Unremarkable as visualized. ? Urinary system:? Normal renal size and attenuation.? Small subcentimeter bilateral renal cysts.? No hydronephrosis.? No renal calculi, hydronephrosis, or solid mass present.? Urinary bladder unremarkable. ? Gastrointestinal system:? Mild colonic wall enhancement without thickening or pericolonic inflammatory change could reflect a mild colitis.? No abscess, obstruction or free fluid ? Appendix:? No findings to suggest acute appendicitis. ? Peritoneal spaces:? No mesenteric or retroperitoneal adenopathy.? No free air.? No free fluid.? ? Vasculature:? Aortic atherosclerotic vascular calcification noted without evidence of aneurysm. ? Abdominal wall:? Abdominal wall intact without evidence of ventral or inguinal hernias. ? Musculoskeletal:? L3 decompressive laminectomy, L3-4 interbody fusion associated with shahram and screw instrumentation in good position.? Degenerative disc disease and arthropathy results in moderate to severe central stenosis at L4-5. ? IMPRESSION: ? 1. Mild colonic wall enhancement could reflect mild colitis without pericolonic phlegmon, abscess or obstruction. ? 2. Incidental degenerative change in the lower lumbar spine degenerative changes, aortic atherosclerotic calcification, and bilateral renal cysts without obstruction. ? 3. Small incidental left adrenal nodule.? Consider follow-up nonemergent adrenal protocol CT or MR? ? ? Approved by: Domenic Doyle M.D. on 06/09/2021 at 10:06? [facility] Narrative Medical decision making narrative: Patient's symptoms are largely chronic with the exception of an episode or 2 of vomiting last night. Her history and physical exam are very reassuring, she is not in pain, tolerating orals, labs and imaging are very reassuring. We were able to obtain a stool sample and confirm it is not Clostridium difficile. She is placed on Augmentin as her symptoms are slightly different than normal and there is some inflammatory change on imaging. She has been given extensive return precautions and questions answered to her apparent satisfaction Discharge Plan Departure Patient Disposition: Home Clinical Impression: Nausea & vomiting, Diarrhea, Colitis Instructions: Nausea and Vomiting-Adult Activity Restrictions/Additional Instructions: *You have been diagnosed with [nausea and vomiting with inflammatory change noted in your colon which, as we discussed, could be related to infection versus inflammation. Thankfully, your labs and physical exam are very reassuring and there is no indication for admission or the need for intervention. Your C. diff test was negative *What to do: *Please continue to take your regular medications as directed. [x ] New medication prescriptions sent to your pharmacy: [ [facility]] [ ] New medication written as a paper prescription [ ] No new medications given *Please follow up with your primary care provider in 2-3 days, call for an appointment. Let them know you were seen in the Emergency Department and that we ask that you be seen in follow up. We will electronically transmit a record of today's note if your PCP is in our system *Please consider clear liquids for the next 2 days and then advance as tolerated *If you do not have a primary care provider please contact the [facility] Resource line at [phone]. They will ask some questions about your medical history and help get you set up with a doctor in the community. *Return to Emergency Department if you should have any new, worsening or concerning symptoms, such as [fever greater than 101 F, shaking chills, worsening pain, persistent vomiting or other bothersome symptoms] Prescriptions: New ondansetron 4 mg tablet,disintegrating 4 mg PO TID-QID PRN (Reason: nausea and vomiting) Qty: 10 0RF amoxicillin-pot clavulanate 875-125 mg tablet 1 tab PO Q12H Qty: 20 0RF No Action cholecalciferol (vitamin D3) [Vitamin D3] 1,000 unit Capsule 1,000 unit PO DAILY Qty: 0 0RF meloxicam 15 MG tablet 15 mg PO QDAY Qty: 90 1RF lisinopril 10 mg Tablet 10 mg PO BEDTIME 0RF metformin 500 mg Tablet 500 mg PO BID 0RF atorvastatin 40 mg Tablet 40 mg PO BEDTIME 0RF ranitidine HCl 150 MG tablet 150 mg PO BID 0RF Label Comments: takes BID aspirin 81 mg Tablet,Delayed Release (Dr/Ec) 81 mg PO BID Qty: 60 0RF docusate sodium [DOK] 100 mg Capsule 100 mg PO BID Qty: 60 0RF oxycodone 5 mg Tablet 5 mg PO Q3HR PRN (Reason: Pain, Moderate (4-6)) Qty: 1 0RF
[2021-06-09 09:02] LABS: Add Manual Diff / Slide Review NO; Basophils Absolute Auto 0 /uL (0-100); Basophils Percent Auto 0.4 % (0-2); Eosinophils Absolute Auto 0 /uL (0-450); Eosinophils Percent Auto 0.8 % (2-4); Hematocrit 36.1 % (36-46); Hemoglobin 12.2 g/dL (12.0-16.0); Lymphocytes Absolute Auto 1600 /uL (1100-4500); Lymphocytes Percent Auto 27.4 % (25-40); Mean Corpuscular HGB Conc 33.8 % (30-36); Mean Corpuscular Hemoglobin 30.2 PG (26-34); Mean Corpuscular Volume 89.4 fL (80-100); Monocytes Absolute Auto 400 /uL (0-900); Monocytes Percent Auto 7.4 % (3-14); Neutrophils Absolute Auto 3900 /uL (1500-7000); Platelet Count 162 X10^3/uL (150-400); Red Blood Cell Count 4.04 X10^6/uL (4.0-5.2); Red Cell Distribution Width 14.3 % (11.6-14.8)
[2021-06-09] MEDS: SODIUM CHLORIDE 0.9% 1,000 ML 1000 ML IV (09:13)
[2021-06-09 09:15] LABS: Alanine Aminotransferase 19 IU/L (<35); Albumin 3.9 g/dL (3.5-5.0); Albumin Globulin Ratio 1.3 (1.0-2.8); Alkaline Phosphatase 58 U/L (38-126); Aspartate Aminotransferase 34 IU/L (14-36); BUN Creatinine Ratio 16.3 (6-22); Bilirubin Total 0.9 mg/dL (0.2-1.3); Blood Urea Nitrogen 14 mg/dL (7-17); Calcium 8.8 mg/dL (8.4-10.2); Carbon Dioxide 27 mmol/L (22-32); Chloride 106 mmol/L (98-107); Creatine Kinase 69 U/L (30-135); Estimated Glomerular Filt Rate > 60.0 mL/min (>60); Globulin 2.9 g/dL (1.7-4.1); Glucose 113 mg/dL (80-110); HEMOLYSIS < 15 (0-50); Potassium 3.3 mmol/L (3.4-5.1); Sodium 142 mmol/L (137-145); Total Protein 6.8 g/dL (6.3-8.2)
[2021-06-09 09:27] LABS: Troponin I < 0.012 ng/mL (0.01-0.034)
--- NOTE | 2021-06-09 09:45 | DI.CT.S_ITS ---
PROCEDURE: CT ABDOMEN PELVIS W CON INDICATIONS: N/V abdominal pain TECHNIQUE: After the administration of intravenous contrast, axial sections acquired from the lung bases to the pubic symphysis. Coronal and sagittal reformats were performed. For radiation dose reduction, the following was used: automated exposure control, adjustment of mA and/or kV according to patient size. COMPARISON: None. FINDINGS: Lower thorax: The lung bases are clear. Heart size normal. No hiatal hernia. Liver: Normal in size and attenuation. No contour deformity present. Biliary system: No calcified cholelithiasis or pericholecystic inflammation. No intra or extrahepatic bile duct dilatation. Pancreas: Unremarkable without mass or inflammation evident. Spleen: Normal in size and density. Adrenals: Small 1.2 cm left adrenal nodule is nonspecific Reproductive system: Unremarkable as visualized. Urinary system: Normal renal size and attenuation. Small subcentimeter bilateral renal cysts. No hydronephrosis. No renal calculi, hydronephrosis, or solid mass present. Urinary bladder unremarkable. Gastrointestinal system: Mild colonic wall enhancement without thickening or pericolonic inflammatory change could reflect a mild colitis. No abscess, obstruction or free fluid Appendix: No findings to suggest acute appendicitis. Peritoneal spaces: No mesenteric or retroperitoneal adenopathy. No free air. No free fluid. Vasculature: Aortic atherosclerotic vascular calcification noted without evidence of aneurysm. Abdominal wall: Abdominal wall intact without evidence of ventral or inguinal hernias. Musculoskeletal: L3 decompressive laminectomy, L3-4 interbody fusion associated with shahram and screw instrumentation in good position. Degenerative disc disease and arthropathy results in moderate to severe central stenosis at L4-5. IMPRESSION: 1. Mild colonic wall enhancement could reflect mild colitis without pericolonic phlegmon, abscess or obstruction. 2. Incidental degenerative change in the lower lumbar spine degenerative changes, aortic atherosclerotic calcification, and bilateral renal cysts without obstruction. 3. Small incidental left adrenal nodule. Consider follow-up nonemergent adrenal protocol CT or MR Approved by: Domenic Doyle M.D. on 06/09/2021 at 10:06
[2021-06-09 11:59] LABS: Appearance Urine UA CLEAR; Bilirubin Urine UA NEGATIVE (NEGATIVE); Color Urine UA YELLOW; Glucose Urine UA NEGATIVE (Negative); Ketones Urine UA NEGATIVE (NEGATIVE); Leukocyte Esterase Urine UA NEGATIVE (NEGATIVE); Nitrite Urine UA NEGATIVE (Negative); Occult Blood Urine UA NEGATIVE (Negative); Protein Urine UA NEGATIVE (Negative); Specific Gravity Urine UA <=1.005 (1.000-1.035); Urobilinogen Urine UA 0.2 E.U./dL (0.2)
[2021-06-09 12:01] LABS: pH Urine UA 5.5 (4.5-8.0)
[2021-06-09 12:08] LABS: Amorphous Sediment Urine 1+; Bacteria Urine None Seen; Culture Indicated Urine Cult Not Indicated; RBC Urine None Seen (0-5/HPF); Squamous Epithelial Cell Urine 1-5 /HPF (0-5/HPF); WBC Urine 0-1/HPF (0-5/HPF)
[2021-06-09 14:18] LABS: Clostridium Difficile Tox PCR Negative for C. diff (Negative)
== END 2021-06-09 14:41 | disposition home or self-care (01) ==
PROVIDERS: Emergency Provider Emergency Medicine; Family Provider Family Medicine
DX: R11.2 Nausea with vomiting, unspecified (principal); K52.9 Noninfective gastroenteritis and colitis, unspecified; Z87.891 Personal history of nicotine dependence; Z88.1 Allergy status to other antibiotic agents; I10 Essential (primary) hypertension
CPT/HCPCS: 36415; 74177; 80053; 81001; 82550; 84484; 85025; 87493; 93005; 93010; 96360; 99284; Q9967

== ENCOUNTER → 2021-07-09 10:21 | Outpatient (CLI) | payer MEDICARE, SELFPAY ==
[2018-08-23 09:09] VITALS: BMI 23.1
[2021-07-09 12:06] LABS: Hemoglobin A1C% w Est Avg Glu 5.8 % (4.0-6.0)
[2021-07-09 12:08] LABS: Alanine Aminotransferase 19 IU/L (<35); Albumin 4.9 g/dL (3.5-5.0); Albumin Globulin Ratio 1.4 (1.0-2.8); Alkaline Phosphatase 67 U/L (38-126); Aspartate Aminotransferase 35 IU/L (14-36); BUN Creatinine Ratio 18.9 (6-22); Bilirubin Total 0.8 mg/dL (0.2-1.3); Blood Urea Nitrogen 18 mg/dL (7-17); Calcium 9.9 mg/dL (8.4-10.2); Carbon Dioxide 25 mmol/L (22-32); Chloride 106 mmol/L (98-107); Estimated Glomerular Filt Rate > 60 mL/min (>60); Globulin 3.5 g/dL (1.7-4.1); Glucose 105 mg/dL (80-110); HEMOLYSIS < 15 (0-50); Potassium 4.6 mmol/L (3.4-5.1); Sodium 139 mmol/L (137-145); Total Protein 8.4 g/dL (6.3-8.2)
== END ==
PROVIDERS: Family Provider Family Medicine; PCP Family Medicine; Referring Provider Family Medicine; Visit Provider Family Medicine
DX: E11.9 Type 2 diabetes mellitus without complications (principal); E78.5 Hyperlipidemia, unspecified; F03.90 Unspecified dementia, unspecified severity, without behavioral disturbance, psychotic disturbance, mood disturbance, and anxiety; I10 Essential (primary) hypertension
CPT/HCPCS: 36415; 80053; 83036

== ENCOUNTER → 2021-09-05 12:32 | Outpatient (CLI) | payer MEDICARE, SELFPAY ==
[2018-08-23 09:09] VITALS: BMI 23.1
--- NOTE | 2021-09-05 | DI.MG.S_ITS ---
BILATERAL DIGITAL SCREENING MAMMOGRAM 3D/2D WITH CAD: 09/05/2021 CLINICAL: Routine screening. Family history of breast cancer. Comparison is made to exams dated: 09/03/2020 mammogram, 08/01/2019 mammogram - [facility], and 09/30/2016 mammogram - [facility]. There are scattered fibroglandular elements in both breasts. Current study was also evaluated with a Computer Aided Detection (CAD) system. There are benign vascular calcifications in both breasts. No significant masses, calcifications, or other findings are seen in either breast. There has been no significant interval change. IMPRESSION: BENIGN There is no mammographic evidence of malignancy. A 1 year screening mammogram is recommended. Based on the Tyrer Cuzick model (a risk assessment model) the patient's lifetime risk is 4.5% and her 10 year risk is 0.0%. According to the ACR, ACS, and NCCN guidelines, an annual breast MRI exam along with mammogram is recommended if the patient's lifetime risk is 20% or greater. This exam was interpreted at Station ID: [id number]. NOTE: For mammograms, a report in lay terms will be sent to the patient. Approximately 15% of breast malignancies will not be visualized mammographically. In the management of a palpable breast mass, a negative mammogram must not discourage biopsy of a clinically suspicious lesion. Electronically Signed By: Juju reyez/chiquita:09/07/2021 09:18:30 letter sent: Normal Exam ACR BI-RADS Category 2: Benign Finding(s) 3342F
== END ==
PROVIDERS: Family Provider Family Medicine; PCP Family Medicine; Referring Provider Family Medicine; Visit Provider Family Medicine
DX: Z12.31 Encounter for screening mammogram for malignant neoplasm of breast (principal); Z80.3 Family history of malignant neoplasm of breast
CPT/HCPCS: 77063; 77067

== ENCOUNTER → 2021-09-17 08:24 | Outpatient (CLI) | payer MEDICARE, SELFPAY ==
[2018-08-23 09:09] VITALS: BMI 23.1
[2021-09-17 09:58] LABS: Ferritin 23 ng/mL (11-264)
[2021-09-17 09:59] LABS: HEMOLYSIS < 15 (0-50); Iron 84 ug/dL (37-170)
[2021-09-17 10:10] LABS: Percent Iron Saturation 22 % (15-50); Total Iron Binding Capacity 385 ug/dL (265-497); Transferrin 292 mg/dL (206-381)
[2021-09-17 10:17] LABS: Free T4, Direct Thyroxine 1.03 ng/dL (0.78-2.19)
[2021-09-17 10:31] LABS: Thyroid Stimulating Hormone 5.68 uIU/mL (0.47-4.68)
== END ==
PROVIDERS: Family Provider Family Medicine; PCP Family Medicine; Referring Provider Dermatology; Visit Provider Dermatology
DX: L64.8 Other androgenic alopecia (principal)
CPT/HCPCS: 36415; 82728; 83540; 83550; 84439; 84443

== ENCOUNTER → 2021-11-06 08:47 | Outpatient (CLI) | payer MEDICARE, SELFPAY ==
[2018-08-23 09:09] VITALS: BMI 23.1
[2021-11-06 10:18] LABS: Hemoglobin A1C% w Est Avg Glu 6.6 % (4.0-6.0)
[2021-11-06 10:19] LABS: Alanine Aminotransferase 27 IU/L (<35); Albumin 4.5 g/dL (3.5-5.0); Albumin Globulin Ratio 1.4 (1.0-2.8); Alkaline Phosphatase 58 U/L (38-126); Aspartate Aminotransferase 34 IU/L (14-36); BUN Creatinine Ratio 14.6 (6-22); Bilirubin Total 0.6 mg/dL (0.2-1.3); Blood Urea Nitrogen 15 mg/dL (7-17); Calcium 9.4 mg/dL (8.4-10.2); Carbon Dioxide 27 mmol/L (22-32); Chloride 104 mmol/L (98-107); Cholesterol 119 mg/dL (140-199); Estimated Glomerular Filt Rate 56 mL/min (>60); Globulin 3.3 g/dL (1.7-4.1); Glucose 129 mg/dL (80-110); HDL Cholesterol 59 mg/dL (40-60); HEMOLYSIS < 15 (0-50); LDL Cholesterol Calculated 38 mg/dL (<100); Potassium 4.9 mmol/L (3.4-5.1); Sodium 139 mmol/L (137-145); Total Protein 7.8 g/dL (6.3-8.2); Triglycerides 111 mg/dL (35-150)
[2021-11-06 11:47] LABS: Thyroid Stimulating Hormone 0.783 uIU/mL (0.47-4.68)
== END ==
PROVIDERS: Family Provider Family Medicine; PCP Family Medicine; Referring Provider Family Medicine; Visit Provider Family Medicine
DX: E11.9 Type 2 diabetes mellitus without complications (principal); E78.5 Hyperlipidemia, unspecified; F02.80 Dementia in other diseases classified elsewhere, unspecified severity, without behavioral disturbance, psychotic disturbance, mood disturbance, and anxiety; G30.0 Alzheimer's disease with early onset; I10 Essential (primary) hypertension; K63.5 Polyp of colon; E03.9 Hypothyroidism, unspecified
CPT/HCPCS: 36415; 80053; 80061; 83036; 84439; 84443

== ENCOUNTER → 2022-03-16 09:13 | Outpatient (CLI) | payer MEDICARE, SELFPAY ==
[2018-08-23 09:09] VITALS: BMI 23.1
[2022-03-16 09:58] LABS: Add Manual Diff / Slide Review NO; Basophils Absolute Auto 0 /uL (0-100); Basophils Percent Auto 0.5 % (0-2); Eosinophils Absolute Auto 100 /uL (0-450); Eosinophils Percent Auto 1.2 % (2-4); Hematocrit 37.8 % (36-46); Hemoglobin 12.7 g/dL (12.0-16.0); Lymphocytes Absolute Auto 2600 /uL (1100-4500); Lymphocytes Percent Auto 38.9 % (25-40); Mean Corpuscular HGB Conc 33.5 % (30-36); Mean Corpuscular Hemoglobin 30.6 PG (26-34); Mean Corpuscular Volume 91.2 fL (80-100); Monocytes Absolute Auto 400 /uL (0-900); Monocytes Percent Auto 6.6 % (3-14); Neutrophils Absolute Auto 3500 /uL (1500-7000); Neutrophils Percent Auto 52.8 % (50-75); Platelet Count 171 X10^3/uL (150-400); Red Blood Cell Count 4.14 X10^6/uL (4.0-5.2); Red Cell Distribution Width 13.7 % (11.6-14.8); White Blood Cell Count 6.6 X10^3/uL (4.5-11.0)
[2022-03-16 10:14] LABS: Hemoglobin A1C% w Est Avg Glu 6.9 % (4.0-6.0)
[2022-03-16 10:23] LABS: Alanine Aminotransferase 30 IU/L (<35); Alkaline Phosphatase 52 U/L (38-126); Aspartate Aminotransferase 35 IU/L (14-36); BUN Creatinine Ratio 18.1 (6-22); Bilirubin Total 0.8 mg/dL (0.2-1.3); Blood Urea Nitrogen 19 mg/dL (7-17); Calcium 9.4 mg/dL (8.4-10.2); Carbon Dioxide 24 mmol/L (22-32); Chloride 103 mmol/L (98-107); Cholesterol 112 mg/dL (140-199); Estimated Glomerular Filt Rate 55 mL/min (>60); Glucose 145 mg/dL (80-110); HDL Cholesterol 47 mg/dL (40-60); HEMOLYSIS < 15 (0-50); LDL Cholesterol Calculated 26 mg/dL (<100); Potassium 4.5 mmol/L (3.4-5.1); Sodium 139 mmol/L (137-145); Total Protein 7.2 g/dL (6.3-8.2); Triglycerides 195 mg/dL (35-150)
[2022-03-16 10:39] LABS: Free T4, Direct Thyroxine 1.08 ng/dL (0.78-2.19)
[2022-03-19 16:00] LABS: Albumin 4.3 g/dL (3.5-5.0); Albumin Globulin Ratio 1.5 (1.0-2.8); Globulin 2.9 g/dL (1.7-4.1)
== END ==
PROVIDERS: Family Provider Family Medicine; PCP Family Medicine; Referring Provider Family Medicine; Visit Provider Family Medicine
DX: E03.9 Hypothyroidism, unspecified (principal); E11.9 Type 2 diabetes mellitus without complications; I10 Essential (primary) hypertension
CPT/HCPCS: 36415; 80053; 80061; 83036; 84439; 84443; 85025

== ENCOUNTER → 2022-06-02 13:20 | Outpatient (CLI) | payer MEDICARE, SELFPAY ==
[2018-08-23 09:09] VITALS: BMI 23.1
[2022-06-02 14:08] LABS: Alanine Aminotransferase 45 IU/L (<35); Albumin 4.6 g/dL (3.5-5.0); Albumin Globulin Ratio 1.4 (1.0-2.8); Alkaline Phosphatase 50 U/L (38-126); Aspartate Aminotransferase 39 IU/L (14-36); Bilirubin Total 0.7 mg/dL (0.2-1.3); Blood Urea Nitrogen 22 mg/dL (7-17); Carbon Dioxide 22 mmol/L (22-32); Chloride 106 mmol/L (98-107); Estimated Glomerular Filt Rate 55 mL/min (>60); Globulin 3.3 g/dL (1.7-4.1); Glucose 135 mg/dL (80-110); HEMOLYSIS < 15 (0-50); Potassium 4.4 mmol/L (3.4-5.1); Sodium 139 mmol/L (137-145); Total Protein 7.9 g/dL (6.3-8.2)
[2022-06-03 06:24] LABS: Labcorp Hemoglobin (Hb) A1c 6.8 % (4.8-5.6)
== END ==
PROVIDERS: Family Provider Family Medicine; PCP Family Medicine; Referring Provider Family Medicine; Visit Provider Family Medicine
DX: E78.2 Mixed hyperlipidemia (principal); E11.9 Type 2 diabetes mellitus without complications
CPT/HCPCS: 36415; 80053; 83036

== ENCOUNTER → 2022-12-16 16:17 | Outpatient (CLI) | payer MEDICARE, SELFPAY ==
[2018-08-23 09:09] VITALS: BMI 23.1
--- NOTE | 2022-12-16 | DI.MG.S_ITS ---
BILATERAL DIGITAL SCREENING MAMMOGRAM 3D/2D WITH CAD: 12/16/2022 CLINICAL: Routine screening. Family history of breast cancer. Comparison is made to exams dated: 09/05/2021 mammogram - [facility], 09/03/2020 mammogram, 08/01/2019 mammogram - [facility], and 05/11/2017 mammogram - [facility]. There are scattered areas of fibroglandular density in both breasts (category b / 25%-50% glandular tissue). Current study was also evaluated with a Computer Aided Detection (CAD) system. There are benign vascular calcifications in both breasts. No significant masses, calcifications, or other findings are seen in either breast. There has been no significant interval change. IMPRESSION: BENIGN There is no mammographic evidence of malignancy. A 1 year screening mammogram is recommended. Based on the Tyrer Cuzick model (a risk assessment model) the patient's lifetime risk is 4.0% and her 10 year risk is 0.0%. According to the ACR, ACS, and NCCN guidelines, an annual breast MRI exam along with mammogram is recommended if the patient's lifetime risk is 20% or greater. This exam was interpreted at Station ID: [id number]. NOTE: For mammograms, a report in lay terms will be sent to the patient. Approximately 15% of breast malignancies will not be visualized mammographically. In the management of a palpable breast mass, a negative mammogram must not discourage biopsy of a clinically suspicious lesion. Electronically Signed By: Tommie castañeda/chiquita:12/17/2022 12:09:23 letter sent: Normal Exam ACR BI-RADS Category 2: Benign Finding(s) [id number]
== END ==
PROVIDERS: Family Provider Family Medicine; PCP Family Medicine; Referring Provider Family Medicine; Visit Provider Family Medicine
DX: Z12.31 Encounter for screening mammogram for malignant neoplasm of breast (principal); Z80.3 Family history of malignant neoplasm of breast
CPT/HCPCS: 77063; 77067

== ENCOUNTER → 2023-02-08 12:36 | Outpatient (CLI) | payer MEDICARE, SELFPAY ==
[2018-08-23 09:09] VITALS: BMI 23.1
[2023-02-08 13:40] LABS: Add Manual Diff / Slide Review NO; Basophils Absolute Auto 0 /uL (0-100); Basophils Percent Auto 0.5 % (0-2); Eosinophils Absolute Auto 100 /uL (0-450); Eosinophils Percent Auto 0.9 % (2-4); Hematocrit 37.7 % (36-46); Hemoglobin 12.7 g/dL (12.0-16.0); Lymphocytes Absolute Auto 3400 /uL (1100-4500); Lymphocytes Percent Auto 41.7 % (25-40); Mean Corpuscular HGB Conc 33.5 % (30-36); Mean Corpuscular Hemoglobin 30.7 PG (26-34); Mean Corpuscular Volume 91.5 fL (80-100); Monocytes Absolute Auto 500 /uL (0-900); Monocytes Percent Auto 6.3 % (3-14); Neutrophils Absolute Auto 4200 /uL (1500-7000); Neutrophils Percent Auto 50.6 % (50-75); Platelet Count 220 X10^3/uL (150-400); Red Blood Cell Count 4.12 X10^6/uL (4.0-5.2); Red Cell Distribution Width 13.6 % (11.6-14.8); White Blood Cell Count 8.2 X10^3/uL (4.5-11.0)
[2023-02-08 13:54] LABS: Hemoglobin A1C% w Est Avg Glu 6.9 % (4.0-6.0)
[2023-02-08 14:17] LABS: Alanine Aminotransferase 52 IU/L (<35); Albumin 4.5 g/dL (3.5-5.0); Albumin Globulin Ratio 1.4 (1.0-2.8); Alkaline Phosphatase 67 U/L (38-126); Aspartate Aminotransferase 53 IU/L (14-36); BUN Creatinine Ratio 15.3 (6-22); Bilirubin Total 0.7 mg/dL (0.2-1.3); Blood Urea Nitrogen 20 mg/dL (7-17); Carbon Dioxide 23 mmol/L (22-32); Chloride 105 mmol/L (98-107); Estimated Glomerular Filt Rate 42 mL/min (>60); Globulin 3.2 g/dL (1.7-4.1); Glucose 124 mg/dL (80-110); HEMOLYSIS < 15 (0-50); Potassium 4.7 mmol/L (3.4-5.1); Sodium 139 mmol/L (137-145); Total Protein 7.7 g/dL (6.3-8.2)
[2023-02-08 14:46] LABS: Free T4, Direct Thyroxine 1.37 ng/dL (0.78-2.19)
[2023-02-08 15:00] LABS: Thyroid Stimulating Hormone 1.15 uIU/mL (0.47-4.68)
== END ==
PROVIDERS: Family Provider Family Medicine; PCP Family Medicine; Referring Provider Family Medicine; Visit Provider Family Medicine
DX: E03.9 Hypothyroidism, unspecified (principal); E11.9 Type 2 diabetes mellitus without complications; E78.5 Hyperlipidemia, unspecified; I10 Essential (primary) hypertension
CPT/HCPCS: 36415; 80053; 83036; 84439; 84443; 85025

== ENCOUNTER 2023-04-05 20:07 | Emergency (ER) | payer MEDICARE, SELFPAY ==
[2018-08-23 09:09] VITALS: BMI 23.1
[2023-04-05 20:08] VITALS: BP 160/88; PULSE 66; RESP 18; TEMP 36.4; O2SAT 96
--- NOTE | 2023-04-05 20:12 | DI.RAD.S_ITS ---
PROCEDURE: XR ANKLE LT MIN 3V INDICATIONS: trip/fall, swelling/bruising TECHNIQUE: 3 views of the ankle were acquired. COMPARISON: None. FINDINGS: Bones: There may be faint avulsed fragments off the lateral talus and inferior lateral malleolus. No other definite fractures are seen. Ankle mortise remains intact with mild medial degenerative changes. No suspicious bone lesions. Soft tissues: Small tibiotalar joint effusion. Normal Achilles tendon. Prominent anterior and lateral periarticular soft tissue swelling. IMPRESSION: Probable faint cortical avulsions along the lateral ankle with prominent anterior and lateral periarticular swelling. Dictated by: Juju Mendiola M.D. on 04/05/2023 at 20:57 Approved by: Juju Mendiola M.D. on 04/05/2023 at 20:59
--- NOTE | 2023-04-05 21:05 | ED.LOWEXIN ---
HPI - Extremity Injury (Lower) General Chief Complaint: Extremity Injury, Lower Stated Complaint: GLF Time Seen by Provider: 04/05/23 21:00 Source: patient Mode of arrival: EMS History of Present Illness HPI Narrative: Patient is a 77-year-old female history of hyperlipidemia hypothyroid hypertension presents today with mechanical fall. She was getting up out of her chair when she just stumbled and rolled her left ankle. She did not hit her head or lose consciousness. She has no knee pain no hip pain no other injury except the left ankle. She has not on antiplatelet or anticoagulation medication. Related Data Home Medications Medication Instructions Recorded Confirmed loperamide 2 mg tablet 2 mg PO Q6H PRN 07/09/21 02/08/23 psyllium [Metamucil (sugar)] PO BID 07/09/21 02/08/23 mecobalamin (vitamin B12) 1,000 1,000 mcg sublingual DAILY 11/06/21 02/08/23 mcg disintegrating tablet,sublingual cholecalciferol (vitamin D3) 25 2,000 unit PO DAILY #0 caps 02/08/23 02/08/23 mcg (1,000 unit) capsule (Vitamin D3) Previous Rx's Medication Instructions Recorded meloxicam 15 mg tablet 15 mg PO QDAY #90 mg 09/13/16 blood-glucose meter (Contour Next #1 ea 11/06/21 EZ Meter kit) alcohol swabs #1 ea 11/10/21 blood sugar diagnostic (Contour #50 ea 11/10/21 Next Test Strips) lancing device with lancets kit #100 ea 11/10/21 (Microlet Next Lancing Device kit) donepezil 10 mg tablet 10 mg PO DAILY #90 tabs 06/16/22 memantine 10 mg tablet 10 mg PO BID #180 tabs 06/16/22 metformin 500 mg tablet 1,000 mg (2 x 500 mg) PO BID #360 07/22/22 tabs levothyroxine 50 mcg tablet 50 mcg PO DAILY #90 tabs 08/30/22 lisinopril 10 mg tablet 10 mg PO BEDTIME #90 tabs 01/26/23 atorvastatin 40 mg tablet 40 mg PO QPM #30 tabs 02/25/23 hydrocodone 5 mg-acetaminophen 325 1 tab PO Q6H PRN pain #10 tabs 04/05/23 mg tablet Allergies Allergy/AdvReac Type Severity Reaction Status Date / Time latex Allergy Severe Rash Verified 02/08/23 11:45 ciprofloxacin [CIPROFLOXACIN] Allergy Intermediate HIVES Verified 02/08/23 11:45 Patient History Medical History Chronic kidney disease Acne Mumps Measles Chicken pox Fecal incontinence Colon polyps Hyperlipemia Dementia Arthritis Osteoarthritis Doherty's neuroma of right foot GERD (gastroesophageal reflux disease) HLD (hyperlipidemia) Generalized headaches Conjunctivitis Controlled type 2 diabetes mellitus CVA (cerebral vascular accident) Non-alcoholic fatty liver disease Hypertension Surgical History Anesthesia History of endoscopy History of colonoscopy Hx of arthroscopy of right knee History of lumbar fusion (~2018) Hx of bilateral cataract extraction Family History Brother Diabetes mellitus Father Mental health problem Alzheimer's disease Grandmother Diabetes mellitus Mother Cancer Grandmother Mental health problem Sister Age: 87 Cancer Social History household members: spouse Smoking Status: Former smoker alcohol intake: current Smoking Status: Former smoker alcohol intake frequency: holidays/special occasions only Substance Use Type: does not use Exam Initial Vital Signs Initial Vital Signs: Vital Signs Temperature 97.6 F 04/05/23 20:08 Pulse Rate 66 04/05/23 20:08 Respiratory Rate 18 04/05/23 20:08 Blood Pressure 160/88 H 04/05/23 20:08 Pulse Oximetry 96 04/05/23 20:08 Oxygen Delivery Method Room Air 04/05/23 20:08 GENERAL: Pleasant well-appearing 77-year-old female and in no acute distress. HEENT: Head atraumatic,EOMI, pupils reactive, face symmetric, moist mucous membranes CARDIOVASCULAR: Regular rate and rhythm without murmurs, rubs or gallops. RESPIRATORY: Breath sounds equal bilaterally, no wheezes rales or rhonchi. ABDOMEN: Soft, nontender. Normoactive bowel sounds all 4 quadrants. No guarding or rebound. EXTREMITIES: Normal range of motion, no clubbing or edema. Neurovascularly intact Left ankle significant lateral swelling, distal pedal pulse intact he is stable NEUROLOGICAL: Alert and oriented x4.Normal gait and speech. SKIN: Warm, dry, no laceration, no petechiae, no rashes or lesions. Procedures Orthopedic Splinting/Casting Injury #1: Lower Extremity Injury Location: ankle Lower Extremity Immobilizer: boot orthosis Other Orthopedic Equipment: walker Post splinting neuro exam: intact Post splinting vascular exam: intact Placed by: Nursing Course Orders Ordered: ED Orders 04/05/23 20:12 XR ankle LT min 3V Stat Discontinued Medications Hydrocodone Bitart/Acetaminophen (Hydrocodone/Acet 5/325 Prepack) 1 bottle MISC NOW ONE Stop: 04/05/23 21:17 Last Admin: 04/05/23 21:24 Dose: 1 bottle Documented By: DEEPTHI Vital Signs Vital signs: Vital Signs - 8 hr 04/05/23 20:08 04/05/23 21:35 Temperature 97.6 F Pulse Rate 66 64 Respiratory Rate 18 18 Blood Pressure 160/88 H 158/88 H Pulse Oximetry 96 97 Oxygen Delivery Method Room Air Room Air MDM - Extremity Injury (Lower) Imaging Data Extremity x-ray #1: Radiologist's Impression: PROCEDURE: XR ANKLE LT MIN 3V INDICATIONS: trip/fall, swelling/bruising TECHNIQUE: 3 views of the ankle were acquired. COMPARISON: None. FINDINGS: Bones: There may be faint avulsed fragments off the lateral talus and inferior lateral malleolus. No other definite fractures are seen. Ankle mortise remains intact with mild medial degenerative changes. No suspicious bone lesions. Soft tissues: Small tibiotalar joint effusion. Normal Achilles tendon. Prominent anterior and lateral periarticular soft tissue swelling. IMPRESSION: Probable faint cortical avulsions along the lateral ankle with prominent anterior and lateral periarticular swelling. Dictated by: Juju Mendiola M.D. on 04/05/2023 at 20:57 Approved by: Juju Mendiola M.D. on 04/05/2023 at 20:59 [facility] Narrative Medical decision making narrative: Patient is 69-year-old female presents today after mechanical fall presenting with left ankle pain and swelling. X-ray has been reviewed questionable cortical avulsion fractures of the lateral ankle. She has given a walking boot and walker. Recommend supportive care Discharge Plan Departure Patient Disposition: Home Clinical Impression: Ankle fracture, left Instructions: DI for Ankle Fracture Activity Restrictions/Additional Instructions: *You have been diagnosed with probable small left ankle fracture *What to do: Keep walking boot on, sleeping use walker as needed. Elevate and ice as often as possible, may undo to ice May need repeat x-ray and follow-up with orthopedic *Continue to take medications as directed Motrin 600 mg every 6 hours if needed for [id number] pain Filion 1 tablet every 6 hours if needed for severe pain *Follow up with your primary care provider in 2-3 days or call [phone] *Return to ER if you should have increasing pain swelling or any new, worsening or concerning symptoms Prescriptions: New hydrocodone-acetaminophen 5-325 mg tablet 1 tab PO Q6H PRN (Reason: pain) Qty: 10 0RF No Action meloxicam 15 MG tablet 15 mg PO QDAY Qty: 90 1RF (DME) blood-glucose meter [Contour Next EZ Meter] Kit See Rx Instructions .Route Qty: 1 0RF Rx Instructions: As directed (DME) Contour Next Test Strips Strip See Rx Instructions .Route Qty: 50 12RF Rx Instructions: As directed (DME) lancing device with lancets [Microlet Next Lancing Device] Kit See Rx Instructions .Route Qty: 100 0RF Rx Instructions: As directed (DME) alcohol swabs See Rx Instructions .Route .MEDSUPPLY Qty: 1 3RF Rx Instructions: use to wipe off finger to take blood sugar once a day donepezil 10 mg tablet 10 mg PO DAILY Qty: 90 3RF memantine 10 mg tablet 10 mg PO BID Qty: 180 3RF metformin 500 mg tablet 1,000 mg PO BID Qty: 360 2RF levothyroxine 50 mcg tablet 50 mcg PO DAILY Qty: 90 0RF Rx Instructions: DUE FOR APPT WITH PCP 08/30/22 lisinopril 10 mg tablet 10 mg PO BEDTIME Qty: 90 1RF cholecalciferol (vitamin D3) [Vitamin D3] 25 mcg (1,000 unit) capsule 2,000 unit PO DAILY Qty: 0 atorvastatin 40 mg tablet 40 mg PO QPM Qty: 30 3RF loperamide 2 mg tablet 2 mg PO Q6H PRN psyllium [Metamucil (sugar)] PO BID Rx Instructions: take 3 capsule two times daily mecobalamin (vitamin B12) 1,000 mcg tablet,disintegrating 1,000 mcg sublingual DAILY Rx Instructions: place tablet under tongue and allow to dissolve for at least30 secs before swallowing Referrals: [facility] [Provider Group] Jose Alfredo Best DO [Primary Care Provider] - Stand Alone Forms: Patient Portal/API
[2023-04-05] MEDS: HYDROCODONE/ACET 5/325 PREPACK 1 BOTTLE MISC (21:24)
[2023-04-05 21:35] VITALS: BP 158/88; PULSE 64; RESP 18; O2SAT 97
== END 2023-04-05 21:37 | disposition home or self-care (01) ==
PROVIDERS: Emergency Provider Emergency Medicine; Family Provider Family Medicine; PCP Family Medicine
DX: S82.892A Other fracture of left lower leg, initial encounter for closed fracture (principal); X50.1XXA Overexertion from prolonged static or awkward postures, initial encounter
CPT/HCPCS: 29515; 73610; 99283

== ENCOUNTER 2023-05-16 13:30 | Outpatient (RCR) | payer MEDICARE, SELFPAY ==
[2018-08-23 09:09] VITALS: BMI 23.1
--- NOTE | 2023-05-16 15:30 | PT.OIE ---
Current Diagnoses Muscle weakness (generalized) (05/16/23) Other lack of coordination (05/16/23) Pain, unspecified (05/16/23) Weakness (05/16/23) Other fracture of left lower leg, subsequent encounter for closed fracture with routine healing (05/16/23) Past Medical History (Last Reviewed 02/08/23 @ 14:50 by Jose Alfredo Best DO) Acne Arthritis Chicken pox Chronic kidney disease Colon polyps Conjunctivitis Controlled type 2 diabetes mellitus CVA (cerebral vascular accident) Dementia Fecal incontinence Generalized headaches GERD (gastroesophageal reflux disease) HLD (hyperlipidemia) Hyperlipemia Hypertension Measles Doherty's neuroma of right foot Mumps Non-alcoholic fatty liver disease Osteoarthritis Past Surgical History (Last Reviewed 02/08/23 @ 14:50 by Jose Alfredo Best DO) Anesthesia History of colonoscopy History of endoscopy History of lumbar fusion (~2018) Hx of arthroscopy of right knee Hx of bilateral cataract extraction Visit Care Team Role Provider Type Akhil Everett MD Family Provider Physician Specialty: [facility] Address: [address] [place] [address], [id number] Email: [email or web address] Jose Alfredo Best DO Attending Provider Physician Primary Care Provider Referring Provider Specialty: [facility] Address: [address] [place] [address], [id number] Email: [email or web address] Physical Therapy Initial Evaluation PT-OP-A Visit Information Start: 05/16/23 12:56 Freq: Status: Active Protocol: Document 05/16/23 13:52 NM (Rec: 05/16/23 16:28 NM [id number]) Out-Patient Physical Therapy Visit Information Visit Information Visit Type Initial Evaluation Visit Note KX after 19 visits Visit Start Time 13:47 Visit Stop Time 14:30 Visit Number 1 Evaluation Information Evaluation Date 05/16/23 Precautions Precautions memory PT-OP-B Current Condition Start: 05/16/23 12:56 Freq: Status: Active Protocol: Document 05/16/23 13:52 NM (Rec: 05/16/23 16:28 NM [id number]) Current Condition History of Current Condition Onset Date 04/04/23 Current Complaints pain, swollen, balance History of Current Condition Pt presents with L ankle s/p inversion sprain on April 04 when walking out of dining room and stepped wrong. She went to ED same day, performed X ray, reports faint cortical avulsions. She was in a boot, but she reports that most of pain symptoms cleared up at third day. Pt continues to have ankle swelling and decreased strength/mobility, tenderness to palpation. She followed up with Dr. Best's office. She has a hx of ankle sprains on opposite foot. Reports no pain with walking, stairs, etc ; household and short community distances. Previous R TKA. No falls since initial injury and reports none prior, reports poor balance. PMH of diabetes type II, numbness/ tingling in B feet that did not originate with injury Prior Treatments and Tests Radiographs 03/2023: probable faint cortical avulsions, lateral and anterior periarticular swelling Treatment Goals Patient/Caregiver Goals improve mobility, strengthening Current Functional Impairments (Reported) Functional Limitations- Mobility/Gait household/short community distances only PT-OP-C Subjective Start: 05/16/23 12:56 Freq: Status: Active Protocol: Document 05/16/23 13:52 NM (Rec: 05/16/23 16:28 NM [id number]) OP-PT Subjective Patient Comments Patient Comments see hx above for pt report Patient Questionnaires Lower Extremity Functional Scale LEFS Score 60/80 OP-PT Pain Assessment Location L ankle Pain Location Details medial pain, slight lateral pain Intensity 5 Scale Used Numeric (0 - 10) Description- Other movement Frequency Intermittent Pain Aggravating Factors Changing Position,Activity, Walking Pain Alleviating Factors Elevation PT-OP-D Balance Start: 05/16/23 12:56 Freq: Status: Active Protocol: Document 05/16/23 13:52 NM (Rec: 05/16/23 16:28 NM [id number]) Balance Tests Single Limb Standing Single Limb- Right 10 seconds Single Limb- Left 5 seconds, not painful but reports instability Tandem Tandem Standing 10 seconds, increased instability, diff achieve PT-OP-E Functional Tests Start: 05/16/23 12:56 Freq: Status: Active Protocol: Document 05/16/23 13:52 NM (Rec: 05/16/23 16:28 NM [id number]) Functional Tests 30 Second Sit to Stand Test Score 9 Comments increased B valgus and pronation, decreased balance, min lateral ankle pain PT-OP-F Manual Assessment Start: 05/16/23 12:56 Freq: Status: Active Protocol: Document 05/16/23 13:52 NM (Rec: 05/16/23 16:28 NM [id number]) Manual Assessments Soft Tissue Assessment Soft Tissue Mobility Assessment Increased swelling of L ankle, along B malleoli. Thickened L achilles tendon Joint Mobility Assessment Joint Mobility Assessment Compared to RLE, increased lateral ligament instability along talocrural joint. Limited bilateral global ankle AROM and PROM, but L more limited and painful than RLE. PT-OP-G Mobility & Gait Start: 05/16/23 12:56 Freq: Status: Active Protocol: Document 05/16/23 13:52 NM (Rec: 05/16/23 16:28 NM [id number]) OP Gait Assessment Gait Gait Assistance Required: Independent Distance (Feet) 150 Assistive Devices Assistive Device None Gait Deviations General Gait Pattern Antalgic,Decreased Feet Clearance Factors Limiting Gait Function Factors Limiting Gait Function Decreased Activity Tolerance, Decreased Sensation,Decreased Strength,Limited Range of Motion,Pain PT-OP-H Neuro Start: 05/16/23 12:56 Freq: Status: Active Protocol: Document 05/16/23 13:52 NM (Rec: 05/16/23 16:28 NM [id number]) Sensation Evaluation Gross Sensation Gross Sensation Left LE Impaired,Right LE Impaired Comments Summary Comments Decreased sensation of plantar and dorsal surfaces of B feet to light touch, joint position, and vibration. PT-OP-J Posture/Palpation/Skin Start: 05/16/23 12:56 Freq: Status: Active Protocol: Document 05/16/23 13:52 NM (Rec: 05/16/23 16:28 NM [id number]) Posture Evaluation Position Standing Head/C-Spine Posture Forward Head T-Spine Posture Increased Kyphosis L-Spine Posture Increased Lordosis Scapula Posture (L) Protracted,(R) Protracted Pelvis Posture Anteriorly Tilted Weight Distribution Weight Shifted Right Hip Posture (L) Externally Rotated,(R) Externally Rotated Ankle/Foot Posture (L) Pronated,(R) Pronated Foot Arch (L) Medium Arch,(R) Medium Arch,(L) Low Arch Palpation Assessment Location L ankle Palpation Location malleoli, achilles, anterior/ medial/lateral ankle Palpation Findings Edema,Soft Tissue Tightness, Tenderness Palpation Details Tenderness along medial and lateral malleoli, proximal fibular head. No tenderness along navicular and 5th metatarsal. Vibration testing for fracture, reports pain along lateral malleolus. Skin Assessment Circumference Measurement R ankle Location figure 8 51 cm, circumference 23 cm Comments comparison L ankle Location figure 8 55 cm, circumference at malleoli 27 cm Comments increased edema along B malleoli Other Assessments Skin Assessment Comments Increased temperature of LLE> RLE. Skin along B lower legs and feet is dry, flaky with healed wounds. Color changes with dependency PT-OP-K Range of Motion Start: 05/16/23 12:56 Freq: Status: Active Protocol: Document 05/16/23 13:52 NM (Rec: 05/16/23 16:28 NM [id number]) Knee Goniometric Range of Motion Knee Right Flexion Active (degrees) 120 Extension Active (degrees) 2 Left Flexion Active (degrees) 120 Extension Active (degrees) 3 Ankle and Foot Goniometric Range of Motion Ankle and Foot Right Dorsiflexion with Knee Flexed 5 Dorsiflexion with Knee Extended 6 Plantarflexion 40 Inversion 30 Eversion 15 Left Dorsiflexion with Knee Flexed 3 Dorsiflexion with Knee Extended 1 Plantarflexion 35 Inversion 15 Eversion 10 Comments minimal pain with inversion and eversion Toe Range of Motion Toes ROM Limitations Comments Limited observable great to extension PT-OP-L Special Tests Start: 05/16/23 12:56 Freq: Status: Active Protocol: Document 05/16/23 13:52 NM (Rec: 05/16/23 16:28 NM [id number]) Special Tests Foot/Ankle Special Tests Daniels Test Results - Talar tilt Test Results + Anterior Drawer Test Results + PT-OP-M Strength Start: 05/16/23 12:56 Freq: Status: Active Protocol: Document 05/16/23 13:52 NM (Rec: 05/16/23 16:28 NM [id number]) Hip Strength Hip Manual Muscle Testing Right Flexion (L2) 4 Good Extension (S1) 4 Good Abduction 4 Good Adduction 4 Good External Rotation 4 Good Internal Rotation 4 Good Left Flexion (L2) 4- Good- Extension (S1) 4- Good- Abduction 4- Good- Adduction 4 Good External Rotation 4 Good Internal Rotation 4 Good Knee Strength Knee Manual Muscle Testing Right Flexion (S2) 4 Good Extension (L3) 4 Good Left Flexion (S2) 4- Good- Extension (L3) 4- Good- Comments Pain with knee flexion Ankle/Foot Strength Ankle and Foot Manual Muscle Testing Right Dorsiflexion (L4) 4 Good Plantarflexion (S1) 3 Fair Inversion 4 Good Eversion (S1) 4 Good Comments Only able to perform 1 B standing heel raise, minimal AROM Left Dorsiflexion (L4) 4- Good- Plantarflexion (S1) 3 Fair Inversion 3+ Fair+ Eversion (S1) 3+ Fair+ Comments Min pain with inversion Only able to perform 1 B standing heel raise, minimal AROM, decreased WB on LLE PT-OP-T Assessment and Plan Start: 05/16/23 12:56 Freq: Status: Active Protocol: Document 05/16/23 13:52 NM (Rec: 05/16/23 16:28 NM [id number]) Physical Therapy Assessment Rehab Potential Rehabilitation Potential Good Evaluation Complexity Number of Personal Factors/Comorbidities 3 or More Number of Body Systems Impaired 1-2 Clinical Presentation at Evaluation Stable Impairments Impairments Activity Tolerance,Balance, Coordination,Edema,Functional Activities,Functional Mobility ,Gait,Integument,Pain,Posture, ROM,Sensation,Soft Tissue Mobility,Strength Goals Six Impairment HEP Impairment not performing HEP Short Term Goal (STG) Pt will report compliance with HEP at least 2-3/wk in order to maximize gains made during PT sessions and promote independence STG Duration 4 weeks Auto Wash Buffer Goal (LTG) Pt will report compliance with HEP at least 3/wk in order to maintain progression and independence with exercise for maintenance program after discharge from PT LTG Duration 8 weeks Five Impairment swelling Impairment L ankle figure 8 55 cm Half-Way Goal (LTG) Pt will decrease L ankle swelling to within 2 cm of R ankle in order to demonstrate improved pain management, activity tolerance, and improved gait mechanics LTG Duration 8 weeks Four Impairment AROM Impairment L ankle DF AROM 3 deg Short Term Goal (STG) Pt will increase L ankle dorsiflexion AROM to at least 5 deg in order to demonstrate improved mobility for gait and stairs STG Duration 4 weeks Auto Wash Buffer Goal (LTG) Pt will increase L ankle dorsiflexion AROM to at least 8 deg in order to demonstrate improved mobility for gait and stairs LTG Duration 8 weeks Three Impairment strength Impairment ankle plantarflexion 1 B heel raise Short Term Goal (STG) Pt will be able to perform at least 5 consecutive B heel raises through available AROM without compensation in order to demonstrate improved toe off during gait STG Duration 4 weeks Half-Way Goal (LTG) Pt will be able to perform at least 10 consecutive B heel raises through available AROM without compensation in order to demonstrate improved toe off during gait LTG Duration 8 weeks Two Impairment strength Impairment ankle inversion/eversion 3+/5 MMT, dorsiflexion 4-/5 MMT Short Term Goal (STG) Pt will improve L ankle inversion/eversion strength to at least 4-/5 MMT and L ankle dorsiflexion to at least 4/5 in order to demonstrate increased ankle strength and stability for gait STG Duration 4 weeks Half-Way Goal (LTG) Pt will improve L ankle inversion/eversion strength to at least 4/5 MMT and L ankle dorsiflexion to at least 4+/5 in order to demonstrate increased ankle strength and stability for gait LTG Duration 8 weeks One Impairment LEFS Impairment 60/80 Short Term Goal (STG) Pt will increase LEFS score by at least 5 points in order to demonstrate improved QOL and activity tolerance STG Duration 4 weeks Half-Way Goal (LTG) Pt will increase LEFS score by at least 9 points (1 MCID) in order to demonstrate improved QOL and activity tolerance LTG Duration 8 weeks Assessment Summary Assessment Pt is a 77 y.o. female presenting to clinic with L ankle pain s/p L ankle inversion sprain during ambulation. She has a hx of ankle sprains. She is ambulatory for short community distances without an AD. Pt has minimal ankle pain except with ankle inversion, reporting that she has minimal limitations with mobility. However, pt continues to have tenderness to palpation along B ankle malleoli and proximal fibula, in addition to swelling compared to RLE. Pt has decreased sensation along BLE and feet related to diabetes, which is limited to light touch, joint position and vibration. Radiographs post injury reveal swelling and cortical avulsions; due to increased swelling and tenderness along malleoli and proximal fibula, pt would benefit from additional imaging to completely clear for fractures. Pt was in boot post ED visit, but has not been wearing the boot for weeks. She continues to have swelling of L ankle and demos signs of poor perfusion in dependency. Pt's L ankle AROM is limited globally due to pain and soft tissue limitations, but specifically in dorsiflexion and eversion. Left ankle strength is also more limited than R ankle strength. Pt is able to perform 1 bilateral heel raise but bears weight more on her RLE. During sit to stands, pt demos several compensations indicating poor ankle stability and decrease hip strength. Lateral ankle instability tests are positive for pain and increased mobility. PT and pt discussed exam findings, POC, and recommended follow up with PCP related to ankle and diabetes . Pt would benefit from skilled PT for L ankle mobilization, strengthening, and to improve ankle proprioception to decrease risk of reinjury and improve activity tolerance. Physical Therapy Plan Frequency and Duration Frequency of Treatment 2x/Week Duration of treatment (weeks) 8 Plan of Care Start Date 05/16/23 Plan of Care End Date 07/15/23 Therapeutic Interventions Therapeutic Interventions Aquatic Therapy,Balance Training,Coordination Training ,Gait Training,Home Exercise Program,Joint Mobilizations, Manual Therapy,Neuromuscular Re-education,Orthotic/ Prosthetic Management,Patient/ Caregiver Education,Self-Care/ Home Management,Sensory Integration,Soft Tissue Mobilization,Taping, Therapeutic Activities, Therapeutic Exercises Modalities Cold Pack/Ice Massage Next Visit Focus/Plan Next Note Type Treatment Note Next Visit Plan Ankle isometrics vs banded, ankle dorsiflexion self mobilization, squats/STS, hip strengthening Manual: STM, mobilizations if cleared by imaging Ice massage
--- NOTE | 2023-05-16 17:34 | PT-OP ANOTE ---
Addendum entered and electronically signed by Martha Montez, PT 05/17/23 15:33: PT called and spoke to pt's informing him and pt of conversation with Dr. Best yesterday. Recommended wearing boot and giving Dr. Best's office a call regarding if additional imaging will be placed prior to visit on 05/23. They verbalize understanding Original Note: PT called and spoke to Dr. Best at 1734 regarding evaluation findings and requesting further imaging based on evaluation results. Dr. Best recommended putting pt back in boot and plans to follow up with pt for imaging this week. States will call tomorrow
--- NOTE | 2023-05-23 12:49 | PT-OP ANOTE ---
PT called at 1245 and spoke to pt's following about x rays. Pt will be getting x rays today. Confirmed that same xrays views are standard for ankle. Depending on findings, educated pt and that will determine whether pt is seen tomorrow vs holding PT due to fracture. Pt and verbalize agreement
--- NOTE | 2023-05-24 08:23 | PT-OP ANOTE ---
PT called and left message with Dr. Best regarding pt's imaging results from 05/22 to determine next steps
--- NOTE | 2023-05-24 12:39 | PT-OP ANOTE ---
PT called pt, discussed hold 2 PT appts this week until see's Dr Best to discuss results of xray and see what Dr Best's recommendation with PT before continue txs, pt verbalized hold PT and contact Dr Best as well for follow up. PT left 1-[address] Best's office, await call back for recommendations for PT. PT had schedulers cancel this week's appts.
--- NOTE | 2023-10-19 13:35 | PT.OPDS ---
Current Diagnoses Muscle weakness (generalized) (05/16/23) Other lack of coordination (05/16/23) Pain, unspecified (05/16/23) Weakness (05/16/23) Other fracture of left lower leg, subsequent encounter for closed fracture with routine healing (05/16/23) Visit Care Team Role Provider Type Akhil Everett MD Family Provider Physician Specialty: [facility] Address: [address] [place] [address], [id number] Email: [email or web address] Jose Alfredo Best DO Attending Provider Physician Primary Care Provider Referring Provider Specialty: [facility] Address: [address] [place] [address], [id number] Email: [email or web address] Visit Number Visit Number 1 Discharge Summary PT-OP-B Current Condition Start: 05/16/23 12:56 Freq: Status: Active Protocol: Document 05/16/23 13:52 NM (Rec: 05/16/23 16:28 NM [id number]) Current Condition History of Current Condition Onset Date 04/04/23 Current Complaints pain, swollen, balance History of Current Condition Pt presents with L ankle s/p inversion sprain on April 04 when walking out of dining room and stepped wrong. She went to ED same day, performed X ray, reports faint cortical avulsions. She was in a boot, but she reports that most of pain symptoms cleared up at third day. Pt continues to have ankle swelling and decreased strength/mobility, tenderness to palpation. She followed up with Dr. Best's office. She has a hx of ankle sprains on opposite foot. Reports no pain with walking, stairs, etc ; household and short community distances. Previous R TKA. No falls since initial injury and reports none prior, reports poor balance. PMH of diabetes type II, numbness/ tingling in B feet that did not originate with injury Prior Treatments and Tests Radiographs 03/2023: probable faint cortical avulsions, lateral and anterior periarticular swelling Treatment Goals Patient/Caregiver Goals improve mobility, strengthening Current Functional Impairments (Reported) Functional Limitations- Mobility/Gait household/short community distances only PT-OP-C Subjective Start: 05/16/23 12:56 Freq: Status: Active Protocol: Document 05/16/23 13:52 NM (Rec: 05/16/23 16:28 NM [id number]) OP-PT Subjective Patient Comments Patient Comments see hx above for pt report Patient Questionnaires Lower Extremity Functional Scale LEFS Score 60/80 OP-PT Pain Assessment Location L ankle Pain Location Details medial pain, slight lateral pain Intensity 5 Scale Used Numeric (0 - 10) Description- Other movement Frequency Intermittent Pain Aggravating Factors Changing Position,Activity, Walking Pain Alleviating Factors Elevation PT-OP-D Balance Start: 05/16/23 12:56 Freq: Status: Active Protocol: Document 05/16/23 13:52 NM (Rec: 05/16/23 16:28 NM [id number]) Balance Tests Single Limb Standing Single Limb- Right 10 seconds Single Limb- Left 5 seconds, not painful but reports instability Tandem Tandem Standing 10 seconds, increased instability, diff achieve PT-OP-E Functional Tests Start: 05/16/23 12:56 Freq: Status: Active Protocol: Document 05/16/23 13:52 NM (Rec: 05/16/23 16:28 NM [id number]) Functional Tests 30 Second Sit to Stand Test Score 9 Comments increased B valgus and pronation, decreased balance, min lateral ankle pain PT-OP-F Manual Assessment Start: 05/16/23 12:56 Freq: Status: Active Protocol: Document 05/16/23 13:52 NM (Rec: 05/16/23 16:28 NM [id number]) Manual Assessments Soft Tissue Assessment Soft Tissue Mobility Assessment Increased swelling of L ankle, along B malleoli. Thickened L achilles tendon Joint Mobility Assessment Joint Mobility Assessment Compared to RLE, increased lateral ligament instability along talocrural joint. Limited bilateral global ankle AROM and PROM, but L more limited and painful than RLE. PT-OP-G Mobility & Gait Start: 05/16/23 12:56 Freq: Status: Active Protocol: Document 05/16/23 13:52 NM (Rec: 05/16/23 16:28 NM [id number]) OP Gait Assessment Gait Gait Assistance Required: Independent Distance (Feet) 150 Assistive Devices Assistive Device None Gait Deviations General Gait Pattern Antalgic,Decreased Feet Clearance Factors Limiting Gait Function Factors Limiting Gait Function Decreased Activity Tolerance, Decreased Sensation,Decreased Strength,Limited Range of Motion,Pain PT-OP-H Neuro Start: 05/16/23 12:56 Freq: Status: Active Protocol: Document 05/16/23 13:52 NM (Rec: 05/16/23 16:28 NM [id number]) Sensation Evaluation Gross Sensation Gross Sensation Left LE Impaired,Right LE Impaired Comments Summary Comments Decreased sensation of plantar and dorsal surfaces of B feet to light touch, joint position, and vibration. PT-OP-J Posture/Palpation/Skin Start: 05/16/23 12:56 Freq: Status: Active Protocol: Document 05/16/23 13:52 NM (Rec: 05/16/23 16:28 NM [id number]) Posture Evaluation Position Standing Head/C-Spine Posture Forward Head T-Spine Posture Increased Kyphosis L-Spine Posture Increased Lordosis Scapula Posture (L) Protracted,(R) Protracted Pelvis Posture Anteriorly Tilted Weight Distribution Weight Shifted Right Hip Posture (L) Externally Rotated,(R) Externally Rotated Ankle/Foot Posture (L) Pronated,(R) Pronated Foot Arch (L) Medium Arch,(R) Medium Arch,(L) Low Arch Palpation Assessment Location L ankle Palpation Location malleoli, achilles, anterior/ medial/lateral ankle Palpation Findings Edema,Soft Tissue Tightness, Tenderness Palpation Details Tenderness along medial and lateral malleoli, proximal fibular head. No tenderness along navicular and 5th metatarsal. Vibration testing for fracture, reports pain along lateral malleolus. Skin Assessment Circumference Measurement R ankle Location figure 8 51 cm, circumference 23 cm Comments comparison L ankle Location figure 8 55 cm, circumference at malleoli 27 cm Comments increased edema along B malleoli Other Assessments Skin Assessment Comments Increased temperature of LLE> RLE. Skin along B lower legs and feet is dry, flaky with healed wounds. Color changes with dependency PT-OP-K Range of Motion Start: 05/16/23 12:56 Freq: Status: Active Protocol: Document 05/16/23 13:52 NM (Rec: 05/16/23 16:28 NM [id number]) Knee Goniometric Range of Motion Knee Right Flexion Active (degrees) 120 Extension Active (degrees) 2 Left Flexion Active (degrees) 120 Extension Active (degrees) 3 Ankle and Foot Goniometric Range of Motion Ankle and Foot Right Dorsiflexion with Knee Flexed 5 Dorsiflexion with Knee Extended 6 Plantarflexion 40 Inversion 30 Eversion 15 Left Dorsiflexion with Knee Flexed 3 Dorsiflexion with Knee Extended 1 Plantarflexion 35 Inversion 15 Eversion 10 Comments minimal pain with inversion and eversion Toe Range of Motion Toes ROM Limitations Comments Limited observable great to extension PT-OP-L Special Tests Start: 05/16/23 12:56 Freq: Status: Active Protocol: Document 05/16/23 13:52 NM (Rec: 05/16/23 16:28 NM [id number]) Special Tests Foot/Ankle Special Tests Daniels Test Results - Talar tilt Test Results + Anterior Drawer Test Results + PT-OP-M Strength Start: 05/16/23 12:56 Freq: Status: Active Protocol: Document 05/16/23 13:52 NM (Rec: 05/16/23 16:28 NM [id number]) Hip Strength Hip Manual Muscle Testing Right Flexion (L2) 4 Good Extension (S1) 4 Good Abduction 4 Good Adduction 4 Good External Rotation 4 Good Internal Rotation 4 Good Left Flexion (L2) 4- Good- Extension (S1) 4- Good- Abduction 4- Good- Adduction 4 Good External Rotation 4 Good Internal Rotation 4 Good Knee Strength Knee Manual Muscle Testing Right Flexion (S2) 4 Good Extension (L3) 4 Good Left Flexion (S2) 4- Good- Extension (L3) 4- Good- Comments Pain with knee flexion Ankle/Foot Strength Ankle and Foot Manual Muscle Testing Right Dorsiflexion (L4) 4 Good Plantarflexion (S1) 3 Fair Inversion 4 Good Eversion (S1) 4 Good Comments Only able to perform 1 B standing heel raise, minimal AROM Left Dorsiflexion (L4) 4- Good- Plantarflexion (S1) 3 Fair Inversion 3+ Fair+ Eversion (S1) 3+ Fair+ Comments Min pain with inversion Only able to perform 1 B standing heel raise, minimal AROM, decreased WB on LLE PT-OP-T Assessment and Plan Start: 05/16/23 12:56 Freq: Status: Active Protocol: Document 10/19/23 13:29 NM (Rec: 10/19/23 13:34 NM [id number]) Physical Therapy Assessment Goals Six Impairment HEP Impairment not performing HEP Short Term Goal (STG) Pt will report compliance with HEP at least 2-3/wk in order to maximize gains made during PT sessions and promote independence STG Duration 4 weeks Half-Way Goal (LTG) Pt will report compliance with HEP at least 3/wk in order to maintain progression and independence with exercise for maintenance program after discharge from PT LTG Duration 8 weeks Five Impairment swelling Impairment L ankle figure 8 55 cm Director Of Outreach Goal (LTG) Pt will decrease L ankle swelling to within 2 cm of R ankle in order to demonstrate improved pain management, activity tolerance, and improved gait mechanics LTG Duration 8 weeks Four Impairment AROM Impairment L ankle DF AROM 3 deg Short Term Goal (STG) Pt will increase L ankle dorsiflexion AROM to at least 5 deg in order to demonstrate improved mobility for gait and stairs STG Duration 4 weeks Director Of Outreach Goal (LTG) Pt will increase L ankle dorsiflexion AROM to at least 8 deg in order to demonstrate improved mobility for gait and stairs LTG Duration 8 weeks Three Impairment strength Impairment ankle plantarflexion 1 B heel raise Short Term Goal (STG) Pt will be able to perform at least 5 consecutive B heel raises through available AROM without compensation in order to demonstrate improved toe off during gait STG Duration 4 weeks Director Of Outreach Goal (LTG) Pt will be able to perform at least 10 consecutive B heel raises through available AROM without compensation in order to demonstrate improved toe off during gait LTG Duration 8 weeks Two Impairment strength Impairment ankle inversion/eversion 3+/5 MMT, dorsiflexion 4-/5 MMT Short Term Goal (STG) Pt will improve L ankle inversion/eversion strength to at least 4-/5 MMT and L ankle dorsiflexion to at least 4/5 in order to demonstrate increased ankle strength and stability for gait STG Duration 4 weeks Director Of Outreach Goal (LTG) Pt will improve L ankle inversion/eversion strength to at least 4/5 MMT and L ankle dorsiflexion to at least 4+/5 in order to demonstrate increased ankle strength and stability for gait LTG Duration 8 weeks One Impairment LEFS Impairment 60/80 Short Term Goal (STG) Pt will increase LEFS score by at least 5 points in order to demonstrate improved QOL and activity tolerance STG Duration 4 weeks Half-Way Goal (LTG) Pt will increase LEFS score by at least 9 points (1 MCID) in order to demonstrate improved QOL and activity tolerance LTG Duration 8 weeks Assessment Summary Assessment Pt was evaluated in April 2023 for L ankle pain. Pt was placed on hold from PT initially until further imaging was performed to assess for fracture due to increased tenderness with palpation consistent with Addison ankle rules. Pt did not return to PT following imaging or appointment with PCP to follow up regarding results. She has not been seen in clinic since initial evaluation. Physical Therapy Plan Frequency and Duration Frequency of Treatment 2x/Week Duration of treatment (weeks) 8 Plan of Care Start Date 05/16/23 Plan of Care End Date 07/15/23 Therapeutic Interventions Therapeutic Interventions Aquatic Therapy,Balance Training,Coordination Training ,Gait Training,Home Exercise Program,Joint Mobilizations, Manual Therapy,Neuromuscular Re-education,Orthotic/ Prosthetic Management,Patient/ Caregiver Education,Self-Care/ Home Management,Sensory Integration,Soft Tissue Mobilization,Taping, Therapeutic Activities, Therapeutic Exercises Modalities Cold Pack/Ice Massage Discharge Physical Therapy Discharge Reasons Change in Medical Status Discharge Comments Pt has not been seen in clinic since initial evaluation following hold from PT while further assessed by PCP for fracture. She will need new referral to return to PT in future. Next Visit Focus/Plan Next Visit Plan discharge from PT
== END 2023-11-04 10:41 | disposition home or self-care (01) ==
LOC: PHYS 13:30
PROVIDERS: Family Provider Family Medicine; PCP Family Medicine; Referring Provider Family Medicine; Visit Provider Family Medicine
DX: R53.1 Weakness (principal); R27.8 Other lack of coordination; S82.892D Other fracture of left lower leg, subsequent encounter for closed fracture with routine healing; R52 Pain, unspecified; M62.81 Muscle weakness (generalized)
CPT/HCPCS: 97161

== ENCOUNTER → 2023-05-23 13:42 | Outpatient (CLI) | payer MEDICARE, SELFPAY ==
[2018-08-23 09:09] VITALS: BMI 23.1
--- NOTE | 2023-05-23 13:43 | DI.RAD.S_ITS ---
PROCEDURE: XR ANKLE LT MIN 3V INDICATIONS: F/U on Left ankle fracture TECHNIQUE: 3 views of the ankle were acquired. COMPARISON: [facility], CR, XR ANKLE LT MIN 3V, 04/05/2023, 20:29. FINDINGS: Bones: Osseous fragments inferior to both medial and lateral malleolus could represent avulsion injuries. Ankle mortise appears intact. Soft tissues: Diffuse soft tissue swelling is seen about the ankle. IMPRESSION: Probable avulsion injuries of both lateral and medial malleolus with marked adjacent soft tissue swelling Dictated by: Mehdi Hollins M.D. on 05/23/2023 at 14:55 Approved by: Mehdi Hollins M.D. on 05/23/2023 at 14:59
== END ==
PROVIDERS: Family Provider Family Medicine; PCP Family Medicine; Referring Provider Family Medicine; Visit Provider Family Medicine
DX: S82.892A Other fracture of left lower leg, initial encounter for closed fracture (principal); M79.89 Other specified soft tissue disorders; X58.XXXA Exposure to other specified factors, initial encounter
CPT/HCPCS: 73610

== ENCOUNTER → 2023-08-17 08:52 | Outpatient (CLI) | payer MEDICARE, SELFPAY ==
[2018-08-23 09:09] VITALS: BMI 23.1
[2023-08-17 09:47] LABS: Add Manual Diff / Slide Review NO; Basophils Absolute Auto 0 /uL (0-100); Basophils Percent Auto 0.6 % (0-2); Eosinophils Absolute Auto 100 /uL (0-450); Hematocrit 39.5 % (36-46); Lymphocytes Absolute Auto 3000 /uL (1100-4500); Lymphocytes Percent Auto 35.7 % (25-40); Mean Corpuscular HGB Conc 32.9 % (30-36); Mean Corpuscular Hemoglobin 29.5 PG (26-34); Mean Corpuscular Volume 89.9 fL (80-100); Monocytes Absolute Auto 500 /uL (0-900); Monocytes Percent Auto 6.4 % (3-14); Neutrophils Absolute Auto 4700 /uL (1500-7000); Neutrophils Percent Auto 56.3 % (50-75); Platelet Count 218 X10^3/uL (150-400); Red Blood Cell Count 4.39 X10^6/uL (4.0-5.2); Red Cell Distribution Width 13.7 % (11.6-14.8); White Blood Cell Count 8.4 X10^3/uL (4.5-11.0)
[2023-08-17 09:57] LABS: Hemoglobin A1C% w Est Avg Glu 8.3 % (4.0-6.0)
[2023-08-17 10:29] LABS: Alanine Aminotransferase 28 IU/L (<35); Albumin 4.4 g/dL (3.5-5.0); Albumin Globulin Ratio 1.5 (1.0-2.8); Alkaline Phosphatase 84 U/L (38-126); Aspartate Aminotransferase 35 IU/L (14-36); BUN Creatinine Ratio 14.6 (6-22); Bilirubin Total 0.6 mg/dL (0.2-1.3); Blood Urea Nitrogen 18 mg/dL (7-17); Calcium 9.6 mg/dL (8.4-10.2); Carbon Dioxide 24 mmol/L (22-32); Chloride 109 mmol/L (98-107); Cholesterol 200 mg/dL (140-199); Estimated Glomerular Filt Rate 45 mL/min (>60); Globulin 2.9 g/dL (1.7-4.1); Glucose 179 mg/dL (80-110); HDL Cholesterol 51 mg/dL (40-60); HEMOLYSIS < 15 (0-50); LDL Cholesterol Calculated 90 mg/dL (<100); Potassium 4.7 mmol/L (3.4-5.1); Sodium 138 mmol/L (137-145); Total Protein 7.3 g/dL (6.3-8.2); Triglycerides 293 mg/dL (35-150)
[2023-08-17 10:49] LABS: Free T4, Direct Thyroxine 1.13 ng/dL (0.78-2.19)
[2023-08-17 11:04] LABS: Thyroid Stimulating Hormone 1.67 uIU/mL (0.47-4.68)
== END ==
PROVIDERS: Family Provider Family Medicine; PCP Family Medicine; Referring Provider Family Medicine; Visit Provider Family Medicine
DX: E03.9 Hypothyroidism, unspecified (principal); E11.9 Type 2 diabetes mellitus without complications; E78.5 Hyperlipidemia, unspecified; E83.52 Hypercalcemia
CPT/HCPCS: 36415; 80053; 80061; 83036; 84439; 84443; 85025

== ENCOUNTER → 2023-11-21 14:55 | Outpatient (CLI) | payer MEDICARE, SELFPAY ==
[2018-08-23 09:09] VITALS: BMI 23.1
[2023-11-21 16:25] LABS: Add Manual Diff / Slide Review NO; Basophils Absolute Auto 0 /uL (0-100); Basophils Percent Auto 0.5 % (0-2); Eosinophils Absolute Auto 100 /uL (0-450); Eosinophils Percent Auto 1.1 % (2-4); Hematocrit 39.6 % (36-46); Hemoglobin 13.4 g/dL (12.0-16.0); Lymphocytes Absolute Auto 4100 /uL (1100-4500); Mean Corpuscular HGB Conc 33.8 % (30-36); Mean Corpuscular Hemoglobin 30.8 PG (26-34); Mean Corpuscular Volume 91.2 fL (80-100); Monocytes Absolute Auto 500 /uL (0-900); Monocytes Percent Auto 5.4 % (3-14); Neutrophils Absolute Auto 4400 /uL (1500-7000); Platelet Count 255 X10^3/uL (150-400); Red Blood Cell Count 4.34 X10^6/uL (4.0-5.2); Red Cell Distribution Width 14.5 % (11.6-14.8); White Blood Cell Count 9.1 X10^3/uL (4.5-11.0)
[2023-11-21 16:49] LABS: Alanine Aminotransferase 36 IU/L (<35); Albumin 4.5 g/dL (3.5-5.0); Albumin Globulin Ratio 1.4 (1.0-2.8); Alkaline Phosphatase 75 U/L (38-126); Aspartate Aminotransferase 38 IU/L (14-36); BUN Creatinine Ratio 16.4 (6-22); Bilirubin Total 0.6 mg/dL (0.2-1.3); Blood Urea Nitrogen 25 mg/dL (7-17); Calcium 10.2 mg/dL (8.4-10.2); Carbon Dioxide 24 mmol/L (22-32); Chloride 103 mmol/L (98-107); Estimated Glomerular Filt Rate 35 mL/min (>60); Globulin 3.2 g/dL (1.7-4.1); Glucose 185 mg/dL (80-110); HEMOLYSIS < 15 (0-50); Potassium 4.3 mmol/L (3.4-5.1); Sodium 138 mmol/L (137-145); Total Protein 7.7 g/dL (6.3-8.2)
[2023-11-21 16:55] LABS: Hemoglobin A1C% w Est Avg Glu 7.6 % (4.0-6.0)
[2023-11-21 17:30] LABS: Thyroid Stimulating Hormone 0.751 uIU/mL (0.47-4.68)
[2023-11-21 17:50] LABS: Vitamin B12 385 pg/mL (239-931)
== END ==
PROVIDERS: Family Provider Family Medicine; PCP Family Medicine; Referring Provider Nurse Practitioner Family; Visit Provider Nurse Practitioner Family
DX: G30.9 Alzheimer's disease, unspecified (principal); E11.8 Type 2 diabetes mellitus with unspecified complications; N18.2 Chronic kidney disease, stage 2 (mild); E03.9 Hypothyroidism, unspecified
CPT/HCPCS: 36415; 80053; 82607; 83036; 84443; 85025

== ENCOUNTER → 2023-12-28 14:18 | Outpatient (CLI) | payer MEDICARE, SELFPAY ==
[2018-08-23 09:09] VITALS: BMI 23.1
--- NOTE | 2023-12-28 14:20 | DI.MG.S_ITS ---
BILATERAL DIGITAL SCREENING MAMMOGRAM 3D/2D WITH CAD: 12/28/2023 CLINICAL: Routine screening. Family history of breast cancer. Comparison is made to exams dated: 12/16/2022 mammogram, 09/05/2021 mammogram - [facility], and 09/03/2020 mammogram - [facility]. There are scattered areas of fibroglandular density (category b / 25%-50% glandular tissue). Current study was also evaluated with a Computer Aided Detection (CAD) system. There are benign vascular calcifications in both breasts. No significant masses, calcifications, or other findings are seen in either breast. There has been no significant interval change. IMPRESSION: BENIGN There is no mammographic evidence of malignancy. A 1 year screening mammogram is recommended. Based on the Tyrer Cuzick model (a risk assessment model) the patient's lifetime risk is 3.5% and her 10 year risk is 0.0%. According to the ACR, ACS, and NCCN guidelines, an annual breast MRI exam along with mammogram is recommended if the patient's lifetime risk is 20% or greater. This exam was interpreted at Station ID: [id number]. NOTE: For mammograms, a report in lay terms will be sent to the patient. Approximately 15% of breast malignancies will not be visualized mammographically. In the management of a palpable breast mass, a negative mammogram must not discourage biopsy of a clinically suspicious lesion. Electronically Signed By: Juju reyez/chiquita:12/28/2023 19:48:07 letter sent: Normal Exam ACR BI-RADS Category 2: Benign
== END ==
PROVIDERS: Family Provider Family Medicine; PCP Family Medicine; Referring Provider Family Medicine; Visit Provider Family Medicine
DX: Z12.31 Encounter for screening mammogram for malignant neoplasm of breast (principal); Z80.3 Family history of malignant neoplasm of breast
CPT/HCPCS: 77063; 77067

== ENCOUNTER 2024-02-13 12:25 | Emergency (ER) | payer MEDICARE, SELFPAY ==
[2018-08-23 09:09] VITALS: BMI 23.1
[2024-02-13 12:31] VITALS: BP 131/77; PULSE 87; RESP 20; TEMP 37; O2SAT 95; BMI 24.1
--- NOTE | 2024-02-13 12:52 | PC.NURSE ---
Pt arrived to dept via EMS for c/o weakness, fatigue and increased agitation, which her family states that is the pt's baseline. Pt answers all questions appropriately.
[2024-02-13 13:00] VITALS: BP 102/61; PULSE 69; RESP 19; O2SAT 93
--- NOTE | 2024-02-13 13:35 | PC.NURSE ---
BSC brought into room for patient to use, urine sample needed. Patient able to stand independently and sat on bedside commode. Patient did require frequent cues to and redirection to complete task of getting to BSC then back to bed. Patient was unable to urinate. She did report she was thirsty and she was offered a drink but refused drink when it was at bedside. Family continue to be present in room.
[2024-02-13 13:45] VITALS: BP 123/59; PULSE 71; RESP 17; O2SAT 97
--- NOTE | 2024-02-13 13:45 | PC.NURSE ---
Patient ambulatory to BSC again and was able to urinate approximately 500mls, urine sample collected and sent to lab.
[2024-02-13 13:55] LABS: Appearance Urine UA SL CLOUDY; Bilirubin Urine UA NEGATIVE (NEGATIVE); Color Urine UA YELLOW; Glucose Urine UA 3+ g/dL (Negative); Ketones Urine UA NEGATIVE (NEGATIVE); Leukocyte Esterase Urine UA 1+ (NEGATIVE); Nitrite Urine UA NEGATIVE (Negative); Occult Blood Urine UA TRACE-INTACT (Negative); Protein Urine UA NEGATIVE (Negative); Urobilinogen Urine UA 0.2 E.U./dL (0.2)
[2024-02-13 14:00] VITALS: BP 118/56; PULSE 69; RESP 20; O2SAT 96
[2024-02-13 14:03] LABS: pH Urine UA 5.5 (4.5-8.0)
[2024-02-13 14:04] LABS: Bacteria Urine Many (>30); Culture Indicated Urine Specimen Cultured; RBC Urine None Seen (0-5/HPF); Squamous Epithelial Cell Urine None Seen (0-5/HPF); Urine Volume 10mL (spun); WBC Urine 10-30/HPF (0-5/HPF)
--- NOTE | 2024-02-13 14:17 | ED_ITS ---
HPI - Weakness General Chief complaint: Weakness Stated complaint: WEAKNESS Time Seen by Provider: 02/13/24 13:45 Source: patient Mode of arrival: EMS History of Present Illness HPI Narrative: Patient 78-year-old female history of dementia presenting today from [facility] with family at bedside. They report that she has had some increased confusion and agitation he is happened previously when she has had a UTI. Patient is able to answer some questions she has a little agitated denies any sort of pain he was very short with answers. Related Data Previous Rx's Medication Instructions Recorded blood-glucose meter (Contour Next #1 ea 11/06/21 EZ Meter kit) alcohol swabs #1 ea 11/10/21 blood sugar diagnostic (Contour #50 ea 11/10/21 Next Test Strips) lancing device with lancets kit #100 ea 11/10/21 (Microlet Next Lancing Device kit) donepezil 10 mg tablet 10 mg PO DAILY #90 tabs 06/16/22 atorvastatin 20 mg tablet 20 mg PO QPM #90 tabs 05/27/23 levothyroxine 50 mcg tablet 50 mcg PO DAILY #90 tabs 12/05/23 lisinopril 10 mg tablet 10 mg PO BEDTIME #90 tabs 12/06/23 dapagliflozin propanediol 10 mg 10 mg PO DAILY #30 tabs 01/02/24 tablet (Farxiga) cephalexin 500 mg capsule 500 mg PO BID 7 days #14 caps 02/13/24 Allergies Allergy/AdvReac Type Severity Reaction Status Date / Time latex Allergy Severe Rash Verified 08/30/23 10:46 ciprofloxacin [CIPROFLOXACIN] Allergy Intermediate HIVES Verified 08/30/23 10:46 Patient History Medical History Bimalleolar avulsion fracture of left ankle Chronic kidney disease Acne Mumps Measles Chicken pox Fecal incontinence Colon polyps Hyperlipemia Dementia Arthritis Osteoarthritis Doherty's neuroma of right foot GERD (gastroesophageal reflux disease) HLD (hyperlipidemia) Generalized headaches Conjunctivitis Controlled type 2 diabetes mellitus CVA (cerebral vascular accident) Non-alcoholic fatty liver disease Hypertension Surgical History Anesthesia History of endoscopy History of colonoscopy Hx of arthroscopy of right knee History of lumbar fusion (~2017) Hx of bilateral cataract extraction Family History Brother Diabetes mellitus Father Mental health problem Alzheimer's disease Grandmother Diabetes mellitus Mother Cancer Grandmother Mental health problem Sister Age: 88 Cancer Social History household members: spouse Smoking Status: Former smoker alcohol intake: current Smoking Status: Former smoker alcohol intake frequency: holidays/special occasions only Exam Initial Vital Signs Initial Vital Signs: Vital Signs Temperature 98.6 F 02/13/24 12:31 Pulse Rate 87 02/13/24 12:31 Respiratory Rate 20 02/13/24 12:31 Blood Pressure 131/77 02/13/24 12:31 Pulse Oximetry 95 02/13/24 12:31 Oxygen Delivery Method Room Air 02/13/24 12:31 GENERAL: Alert slightly agitated 78-year-old female HEENT: Head atraumatic,EOMI, pupils reactive, face symmetric CARDIOVASCULAR: Regular rate and rhythm without murmurs, rubs or gallops. RESPIRATORY: Breath sounds equal bilaterally, no wheezes rales or rhonchi. ABDOMEN: Soft, nontender. Normoactive bowel sounds all 4 quadrants. No guarding or rebound. EXTREMITIES: Normal range of motion, no clubbing or edema. Neurovascularly intact NEUROLOGICAL: Moving all extremities no gross deficits SKIN: Warm, dry, no laceration, no petechiae, no rashes or lesions. Course Orders Ordered: ED Orders 02/13/24 13:49 UA Complete [Urinalysis and Microscopic] Stat Urine Culture Stat Vital Signs Vital signs: Vital Signs - 8 hr 02/13/24 12:31 02/13/24 13:00 02/13/24 13:45 Temperature 98.6 F Pulse Rate 87 69 71 Respiratory Rate 20 19 17 Blood Pressure 131/77 102/61 Pulse Oximetry 95 93 97 Oxygen Delivery Method Room Air Room Air 02/13/24 13:45 02/13/24 14:00 02/13/24 14:00 Temperature Pulse Rate 69 Respiratory Rate 20 Blood Pressure 123/59 L 118/56 L Pulse Oximetry 96 Oxygen Delivery Method MDM - Weakness Lab Data Labs: Lab Results 02/13/24 Range/Units 13:49 Urine Color Yellow Urine Appearance Sl cloudy Urine pH 5.5 (4.5-8.0) Ur Specific [place] 1.010 (1.000-1.035) Urine Protein Negative (Negative) Urine Glucose (UA) 3+ H (Negative) g/dL Urine Ketones Negative (NEGATIVE) Urine Occult Blood Trace-intact (Negative) Urine Nitrate Negative (Negative) Urine Bilirubin Negative (NEGATIVE) Urine Urobilinogen 0.2 (0.2) E.U./dL Ur Leukocyte Esterase 1+ H (NEGATIVE) Urine RBC None seen (0-5/HPF) Urine WBC 10-30/hpf H (0-5/HPF) Ur Squamous Epith Cells None seen (0-5/HPF) Urine Bacteria Many (>30) H (None) Ur Culture Indicated? Specimen cultured Vol Urine Centrifuged 10ml (spun) Urine Dip Bedside Urine Glucose 1000 mg/dl Bedside Urine Bilirubin - Negative Bedside Urine Ketone - Negative Urine Specific [place] 1.010 Bedside Urine Occult Blood - Negative Bedside Urine pH 6.0 Bedside Urine Protein - Negative Bedside Urine Urobilinogen - Negative Bedside Urine Nitrite - Negative Bedside Urine Leukocytes - Negative Esterase MDM Narrative Medical decision making narrative: Patient is 78-year-old female history of dementia presenting today with agitation that started today. Family at bedside. Long discussion all family members about goals of visit. She is DNR comfort measures. At this time they would just like to check a urine without blood work. Ear and is positive for leukocytes and bacteria negative for nitrates. Sent for culture. At this time I think reasonable to start her on Keflex. If symptoms worsening then she can return for further workup if they choose Her vitals are stable without hypotension or tachycardia Discharge Plan Departure Patient Disposition: Home Clinical Impression: UTI (urinary tract infection) Instructions: DI for Urinary Tract Infection (UTI) Activity Restrictions/Additional Instructions: *You have been diagnosed with UTI *What to do: At this time urine does look like there is a mild infection. We will start her on antibiotics hopefully symptoms start improving for her. Given about 2-3 days if there is no improvement or symptoms are worsening then return to the ED for further evaluation *Continue to take medications as directed Keflex 500 mg twice a day for 7 days *Follow up with your primary care provider in 2-3 days or call [phone] *Return to ER if you should have increase confusion agitation or any new, worsening or concerning symptoms Prescriptions: New cephalexin 500 mg capsule 500 mg PO BID 7 Days Qty: 14 0RF No Action (DME) blood-glucose meter [Contour Next EZ Meter] Kit See Rx Instructions .Route Qty: 1 0RF Rx Instructions: As directed (DME) Contour Next Test Strips Strip See Rx Instructions .Route Qty: 50 12RF Rx Instructions: As directed (DME) lancing device with lancets [Microlet Next Lancing Device] Kit See Rx Instructions .Route Qty: 100 0RF Rx Instructions: As directed (DME) alcohol swabs See Rx Instructions .Route .MEDSUPPLY Qty: 1 3RF Rx Instructions: use to wipe off finger to take blood sugar once a day donepezil 10 mg tablet 10 mg PO DAILY Qty: 90 3RF levothyroxine 50 mcg tablet 50 mcg PO DAILY Qty: 90 3RF lisinopril 10 mg tablet 10 mg PO BEDTIME Qty: 90 3RF dapagliflozin propanediol [Farxiga] 10 mg tablet 10 mg PO DAILY Qty: 30 1RF atorvastatin 20 mg tablet 20 mg PO QPM Qty: 90 3RF Rx Instructions: start taking 20 mg Referrals: Jose Alfredo Best DO [Primary Care Provider] - Stand Alone Forms: Patient Portal/API/Survey
== END 2024-02-13 14:48 | disposition home or self-care (01) ==
PROVIDERS: Emergency Provider Emergency Medicine; Family Provider Family Medicine; PCP Family Medicine
DX: N39.0 Urinary tract infection, site not specified (principal)
CPT/HCPCS: 81001; 81003; 87077; 87086; 87186; 99282; 99283

== ENCOUNTER 2024-03-07 09:38 | Emergency (ER) | payer MEDICARE, SELFPAY ==
[2018-08-23 09:09] VITALS: BMI 23.1
[2024-03-07] VITALS (12 sets, daily range): BP systolic 105–132; BP diastolic 59–77; PULSE 62–85; RESP 14–23; TEMP 36.6; O2SAT 95–99; BMI 22.7
--- NOTE | 2024-03-07 09:59 | EKG_ITS ---
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
--- NOTE | 2024-03-07 09:59 | DI.RAD.S_ITS ---
PROCEDURE: XR CHEST 1V INDICATIONS: altered mental status TECHNIQUE: One view of the chest was acquired. COMPARISON: [facility], CR, XR CHEST 1V, 08/20/2017, 21:32. FINDINGS: Surgical changes and devices: None. Lungs and pleura: Lungs are clear. No pleural effusions or pneumothorax. Mediastinum: Mediastinal contours appear normal. Heart size is normal. Bones and chest wall: No suspicious bony lesions. Overlying soft tissues appear unremarkable. IMPRESSION: No acute cardiopulmonary abnormality is seen. Dictated by: Zhao Harding M.D. on 03/07/2024 at 10:52 Approved by: Zhao Harding M.D. on 03/07/2024 at 10:53
[2024-03-07 10:14] LABS: Add Manual Diff / Slide Review NO; Basophils Absolute Auto 0 /uL (0-100); Basophils Percent Auto 0.5 % (0-2); Eosinophils Absolute Auto 100 /uL (0-450); Eosinophils Percent Auto 0.8 % (2-4); Hematocrit 43.3 % (36-46); Hemoglobin 14.3 g/dL (12.0-16.0); Lymphocytes Absolute Auto 2600 /uL (1100-4500); Lymphocytes Percent Auto 35.7 % (25-40); Mean Corpuscular Volume 90.9 fL (80-100); Monocytes Absolute Auto 500 /uL (0-900); Monocytes Percent Auto 7.1 % (3-14); Neutrophils Absolute Auto 4100 /uL (1500-7000); Neutrophils Percent Auto 55.9 % (50-75); Platelet Count 232 X10^3/uL (150-400); Red Blood Cell Count 4.76 X10^6/uL (4.0-5.2); Red Cell Distribution Width 14.2 % (11.6-14.8); White Blood Cell Count 7.4 X10^3/uL (4.5-11.0)
[2024-03-07 10:18] LABS: Alanine Aminotransferase 28 IU/L (<35); Albumin 4.8 g/dL (3.5-5.0); Albumin Globulin Ratio 1.5 (1.0-2.8); Alkaline Phosphatase 79 U/L (38-126); Aspartate Aminotransferase 42 IU/L (14-36); BUN Creatinine Ratio 14.9 (6-22); Bilirubin Total 0.7 mg/dL (0.2-1.3); Blood Urea Nitrogen 24 mg/dL (7-17); Calcium 9.7 mg/dL (8.4-10.2); Carbon Dioxide 25 mmol/L (22-32); Chloride 104 mmol/L (98-107); Estimated Glomerular Filt Rate 32 mL/min (>60); Globulin 3.2 g/dL (1.7-4.1); Glucose 159 mg/dL (80-110); HEMOLYSIS 27 (0-50); Potassium 4.7 mmol/L (3.4-5.1); Sodium 138 mmol/L (137-145)
[2024-03-07 10:29] LABS: Ammonia (NH3) < 9 umol/L (9-30)
--- NOTE | 2024-03-07 10:31 | ED_ITS ---
HPI - Altered Mental Status <yBron Carbone MD - Last Filed: 03/09/24 09:32> General Chief Complaint: Altered Mental Status Stated Complaint: Altered Mental Status, LOC Time Seen by Provider: 03/07/24 10:22 History of Present Illness HPI narrative: Patient brought here by ambulance from [facility]. Patient has history of dementia. at bedside. Patient may have a UTI according to because yesterday she seemed to be agitated and a little aggressive. At this time patient is calm. Answering to name only. She denies any pain anywhere. No fall or injury. No new medications. is at bedside. He states she is here because she gets upset when he leaves her at [facility] after visiting her. Denies any fall or injury. Patient denies any pain anywhere. No urinary complaints no cough cold congestion. No chest pain or abdominal pain no headache. Social work consult has been placed as well. Related Data Home Medications Medication Instructions Recorded Confirmed melatonin 5 mg PO BEDTIME 03/07/24 03/07/24 quetiapine 50 mg tablet (Seroquel) 50 mg PO BID 03/07/24 03/07/24 trazodone 25 mg PO DAILY 03/07/24 03/07/24 trazodone 50 mg tablet 50 mg PO BEDTIME 03/07/24 03/07/24 Previous Rx's Medication Instructions Recorded blood-glucose meter (Contour Next #1 ea 11/06/21 EZ Meter kit) alcohol swabs #1 ea 11/10/21 blood sugar diagnostic (Contour #50 ea 11/10/21 Next Test Strips) lancing device with lancets kit #100 ea 11/10/21 (Microlet Next Lancing Device kit) levothyroxine 50 mcg tablet 50 mcg PO DAILY #90 tabs 12/05/23 lisinopril 10 mg tablet 10 mg PO BEDTIME #90 tabs 12/06/23 dapagliflozin propanediol 10 mg 10 mg PO DAILY #30 tabs 01/02/24 tablet (Farxiga) cephalexin 500 mg capsule 500 mg PO QID #20 caps 03/07/24 Allergies Allergy/AdvReac Type Severity Reaction Status Date / Time latex Allergy Severe Rash Verified 08/30/23 10:46 ciprofloxacin [CIPROFLOXACIN] Allergy Intermediate HIVES Verified 08/30/23 10:46 Review of Systems <Byron Carbone MD - Last Filed: 03/09/24 09:32> Review of Systems Narrative: GENERAL: in no distress, not toxic not dyspneic HEAD: Normocephalic. EYES: Pupils equal round ENT: Mucous membranes moist. NECK: Trachea midline. CARDIOVASCULAR: Regular rate and rhythm RESPIRATORY: Clear to auscultation. Breath sounds equal bilaterally. No wheezes, rales, or rhonchi. GASTROINTESTINAL: Abdomen soft, non-tender EXTREMITIES: No gross deformities. BACK: No flank tenderness. NEURO: Patient alert to self and states name and does not know her date of . SKIN: Warm and dry PSYCH: Not anxious, is cooperative ROS Unobtainable: All systems reviewed & are unremarkable except as noted in HPI and below Patient History <Byron Carbone MD - Last Filed: 03/09/24 09:32> Medical History Bimalleolar avulsion fracture of left ankle Chronic kidney disease Acne Mumps Measles Chicken pox Fecal incontinence Colon polyps Hyperlipemia Dementia Arthritis Osteoarthritis Doherty's neuroma of right foot GERD (gastroesophageal reflux disease) HLD (hyperlipidemia) Generalized headaches Conjunctivitis Controlled type 2 diabetes mellitus CVA (cerebral vascular accident) Non-alcoholic fatty liver disease Hypertension Surgical History Anesthesia History of endoscopy History of colonoscopy Hx of arthroscopy of right knee History of lumbar fusion (~2018) Hx of bilateral cataract extraction Family History Brother Diabetes mellitus Father Mental health problem Alzheimer's disease Grandmother Diabetes mellitus Mother Cancer Grandmother Mental health problem Sister Age: 88 Cancer Social History household members: spouse Smoking Status: Former smoker alcohol intake: current Smoking Status: Former smoker alcohol intake frequency: holidays/special occasions only Exam <Byron Carbone MD - Last Filed: 03/09/24 09:32> Narrative Exam Narrative: GENERAL: in no distress, not toxic not dyspneic HEAD: Normocephalic. EYES: Pupils equal round ENT: Mucous membranes moist. NECK: Trachea midline. CARDIOVASCULAR: Regular rate and rhythm RESPIRATORY: Clear to auscultation. Breath sounds equal bilaterally. No wheezes, rales, or rhonchi. GASTROINTESTINAL: Abdomen soft, non-tender EXTREMITIES: No gross deformities. BACK: No flank tenderness. NEURO: Awake alert oriented x1, to her name only. Clear speech. 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 Lift each leg individually. SKIN: Warm and dry PSYCH: Not anxious, is cooperative Initial Vital Signs Initial Vital Signs: Vital Signs Pulse Rate 78 03/07/24 09:47 Respiratory Rate 22 03/07/24 09:47 Pulse Oximetry 97 03/07/24 09:47 <Katerina Grijalva DO - Last Filed: 03/09/24 08:24> Initial Vital Signs Initial Vital Signs: Vital Signs Pulse Rate 78 03/07/24 09:47 Respiratory Rate 22 03/07/24 09:47 Pulse Oximetry 97 03/07/24 09:47 Course <Byron Carbone MD - Last Filed: 03/09/24 09:32> Orders Ordered: Discontinued Medications Cephalexin HCl (Cephalexin 250 Mg Capsule) 500 mg PO NOW ONE Stop: 03/07/24 14:36 Last Admin: 03/07/24 14:42 Dose: 500 mg Documented By: DEEPTHI Vital Signs Vital signs: Vital Signs - 8 hr 03/07/24 09:47 03/07/24 09:55 03/07/24 10:00 Temperature 97.9 F Pulse Rate 78 82 69 Respiratory Rate 22 16 17 Blood Pressure 114/77 Pulse Oximetry 97 97 97 Oxygen Delivery Method Room Air 03/07/24 10:05 03/07/24 10:05 03/07/24 10:30 Temperature Pulse Rate 73 69 Respiratory Rate 20 20 Blood Pressure 108/62 Pulse Oximetry 97 96 Oxygen Delivery Method 03/07/24 10:30 03/07/24 11:00 03/07/24 11:00 Temperature Pulse Rate 74 Respiratory Rate 21 Blood Pressure 105/63 122/64 Pulse Oximetry 96 Oxygen Delivery Method 03/07/24 11:30 03/07/24 11:30 03/07/24 12:00 Temperature Pulse Rate 77 70 Respiratory Rate 19 18 Blood Pressure 127/64 Pulse Oximetry 99 98 Oxygen Delivery Method 03/07/24 12:00 03/07/24 12:30 03/07/24 12:30 Temperature Pulse Rate 62 Respiratory Rate 14 Blood Pressure 110/59 L 114/60 Pulse Oximetry 98 Oxygen Delivery Method 03/07/24 13:00 03/07/24 13:00 03/07/24 13:30 Temperature Pulse Rate 63 76 Respiratory Rate 18 16 Blood Pressure 107/59 L Pulse Oximetry 98 Oxygen Delivery Method 03/07/24 13:30 03/07/24 13:39 03/07/24 13:39 Temperature Pulse Rate 85 Respiratory Rate 23 Blood Pressure 117/69 132/74 Pulse Oximetry 95 Oxygen Delivery Method <Katerina Grijalva, - Last Filed: 03/09/24 08:24> Orders Ordered: Discontinued Medications Cephalexin HCl (Cephalexin 250 Mg Capsule) 500 mg PO NOW ONE Stop: 03/07/24 14:36 Last Admin: 03/07/24 14:42 Dose: 500 mg Documented By: DEEPTHI Vital Signs Vital signs: Vital Signs - 8 hr 03/07/24 09:47 03/07/24 09:55 03/07/24 10:00 Temperature 97.9 F Pulse Rate 78 82 69 Respiratory Rate 22 16 17 Blood Pressure 114/77 Pulse Oximetry 97 97 97 Oxygen Delivery Method Room Air 03/07/24 10:05 03/07/24 10:05 03/07/24 10:30 Temperature Pulse Rate 73 69 Respiratory Rate 20 20 Blood Pressure 108/62 Pulse Oximetry 97 96 Oxygen Delivery Method 03/07/24 10:30 03/07/24 11:00 03/07/24 11:00 Temperature Pulse Rate 74 Respiratory Rate 21 Blood Pressure 105/63 122/64 Pulse Oximetry 96 Oxygen Delivery Method 03/07/24 11:30 03/07/24 11:30 03/07/24 12:00 Temperature Pulse Rate 77 70 Respiratory Rate 19 18 Blood Pressure 127/64 Pulse Oximetry 99 98 Oxygen Delivery Method 03/07/24 12:00 03/07/24 12:30 03/07/24 12:30 Temperature Pulse Rate 62 Respiratory Rate 14 Blood Pressure 110/59 L 114/60 Pulse Oximetry 98 Oxygen Delivery Method 03/07/24 13:00 03/07/24 13:00 03/07/24 13:30 Temperature Pulse Rate 63 76 Respiratory Rate 18 16 Blood Pressure 107/59 L Pulse Oximetry 98 Oxygen Delivery Method 03/07/24 13:30 03/07/24 13:39 03/07/24 13:39 Temperature Pulse Rate 85 Respiratory Rate 23 Blood Pressure 117/69 132/74 Pulse Oximetry 95 Oxygen Delivery Method MDM - Altered Mental Status <Byron Carbone MD - Last Filed: 03/09/24 09:32> Lab Data 03/07/24 09:49 03/07/24 09:49 Labs: Lab Results 03/07/24 03/07/24 03/07/24 Range/Units 09:49 10:09 14:18 WBC 7.4 (4.5-11.0) X10^3/uL RBC 4.76 (4.0-5.2) X10^6/uL Hgb 14.3 (12.0-16.0) g/dL Hct 43.3 (36-46) % MCV 90.9 (80-100) fL MCH 30.0 (26-34) PG MCHC 33.0 (30-36) % RDW 14.2 (11.6-14.8) % Plt Count 232 (150-400) X10^3/uL Neut % (Auto) 55.9 (50-75) % Lymph % (Auto) 35.7 (25-40) % Burke % (Auto) 7.1 (3-14) % Eos % (Auto) 0.8 L (2-4) % Baso % (Auto) 0.5 (0-2) % Neut # (Auto) 4100 (7620-8696) /uL Lymph # (Auto) 2600 (1566-6441) /uL Burke # (Auto) 500 (0-900) /uL Eos # (Auto) 100 (0-450) /uL Baso # (Auto) 0 (0-100) /uL Sodium 138 (137-145) mmol/L Potassium 4.7 (3.4-5.1) mmol/L Chloride 104 (98-107) mmol/L Carbon Dioxide 25 (22-32) mmol/L BUN 24 H (7-17) mg/dL Creatinine 1.61 H (0.52-1.04) mg/dL Estimated GFR 32 L (>60) mL/min BUN/Creatinine Ratio 14.9 (6-22) Glucose 159 H (80-110) mg/dL Calcium 9.7 (8.4-10.2) mg/dL Total Bilirubin 0.7 (0.2-1.3) mg/dL AST 42 H (14-36) IU/L ALT 28 (<35) IU/L Alkaline Phosphatase 79 (38-126) U/L Ammonia < 9 L (9-30) umol/L Total Protein 8.0 (6.3-8.2) g/dL Albumin 4.8 (3.5-5.0) g/dL Globulin 3.2 (1.7-4.1) g/dL Albumin/Globulin Ratio 1.5 (1.0-2.8) Urine Color Yellow Urine Appearance Cloudy Urine pH 5.5 (4.5-8.0) Ur Specific [place] 1.020 (1.000-1.035) Urine Protein Negative (Negative) Urine Glucose (UA) 3+ H (Negative) g/dL Urine Ketones Trace H (NEGATIVE) Urine Occult Blood 1+ H (Negative) Urine Nitrate Positive H (Negative) Urine Bilirubin Negative (NEGATIVE) Urine Urobilinogen 1.0 (0.2) E.U./dL Ur Leukocyte Esterase 1+ H (NEGATIVE) Urine RBC 5-10/hpf H (0-5/HPF) Urine WBC 10-30/hpf H (0-5/HPF) Ur Squamous Epith Cells None seen (0-5/HPF) Urine Bacteria Many (>30) H (None) Ur Culture Indicated? Specimen cultured Vol Urine Centrifuged 10ml (spun) U Opiates 300ng/mL cut Negative (Negative) Ur Oxycodone Screen Negative (Negative) Urine Methadone Screen Negative (Negative) Ur Barbiturates Screen Negative (Negative) U Tricyclic Antidepress Negative (Negative) Ur Phencyclidine Scrn Negative (Negative) Ur Amphetamines Screen Negative (Negative) U Methamphetamines Scrn Negative (Negative) Ur MDMA Scrn (Ecstasy) Negative (Negative) U Benzodiazepines Scrn Negative (Negative) Urine Cocaine Screen Negative (Negative) U Marijuana (THC) Screen Negative (Negative) Urine Specific [place] (Normal) Ur Creatinine (Normal) Chlamy pneumoniae PCR Not detected (Not Detect) Adenovirus (PCR) Not detected (Not Detect) B. pertussis DNA (PCR) Not detected (Not Detect) B.parapertussis DNA PCR Not detected (Not Detecte) Coronavirus OC43 (PCR) Not detected (Not Detect) Coronavirus HKU1 (PCR) Not detected (Not Detect) Coronavirus 229E (PCR) Not detected (Not Detect) SARS-CoV-2 (PCR) Not detected (Not Detecte) Coronavirus NL63 (PCR) Not detected (Not Detect) Human Metapneumovir PCR Not detected (Not Detect) Influenza Type A (PCR) Not detected (Not Detect) Influenza Type B (PCR) Not detected (Not Detect) M. pneumoniae (PCR) Not detected (Not Detect) Parainfluenza 1 (PCR) Not detected (Not Detect) Parainfluenza 2 (PCR) Not detected (Not Detect) Parainfluenza 3 (PCR) Not detected (Not Detect) Parainfluenza 4 (PCR) Not detected (Not Detect) RSV (PCR) Not detected (Not Detect) Entero/Rhino (PCR) Not detected (Not Detect) 03/07/24 Range/Units 14:18 WBC (4.5-11.0) X10^3/uL RBC (4.0-5.2) X10^6/uL Hgb (12.0-16.0) g/dL Hct (36-46) % MCV (80-100) fL MCH (26-34) PG MCHC (30-36) % RDW (11.6-14.8) % Plt Count (150-400) X10^3/uL Neut % (Auto) (50-75) % Lymph % (Auto) (25-40) % Burke % (Auto) (3-14) % Eos % (Auto) (2-4) % Baso % (Auto) (0-2) % Neut # (Auto) (0997-1863) /uL Lymph # (Auto) (2328-6329) /uL Burke # (Auto) (0-900) /uL Eos # (Auto) (0-450) /uL Baso # (Auto) (0-100) /uL Sodium (137-145) mmol/L Potassium (3.4-5.1) mmol/L Chloride (98-107) mmol/L Carbon Dioxide (22-32) mmol/L BUN (7-17) mg/dL Creatinine (0.52-1.04) mg/dL Estimated GFR (>60) mL/min BUN/Creatinine Ratio (6-22) Glucose (80-110) mg/dL Calcium (8.4-10.2) mg/dL Total Bilirubin (0.2-1.3) mg/dL AST (14-36) IU/L ALT (<35) IU/L Alkaline Phosphatase (38-126) U/L Ammonia (9-30) umol/L Total Protein (6.3-8.2) g/dL Albumin (3.5-5.0) g/dL Globulin (1.7-4.1) g/dL Albumin/Globulin Ratio (1.0-2.8) Urine Color Urine Appearance Urine pH Normal (4.5-8.0) Ur Specific [place] (1.000-1.035) Urine Protein (Negative) Urine Glucose (UA) (Negative) g/dL Urine Ketones (NEGATIVE) Urine Occult Blood (Negative) Urine Nitrate (Negative) Urine Bilirubin (NEGATIVE) Urine Urobilinogen (0.2) E.U./dL Ur Leukocyte Esterase (NEGATIVE) Urine RBC (0-5/HPF) Urine WBC (0-5/HPF) Ur Squamous Epith Cells (0-5/HPF) Urine Bacteria (None) Ur Culture Indicated? Vol Urine Centrifuged U Opiates 300ng/mL cut (Negative) Ur Oxycodone Screen (Negative) Urine Methadone Screen (Negative) Ur Barbiturates Screen (Negative) U Tricyclic Antidepress (Negative) Ur Phencyclidine Scrn (Negative) Ur Amphetamines Screen (Negative) U Methamphetamines Scrn (Negative) Ur MDMA Scrn (Ecstasy) (Negative) U Benzodiazepines Scrn (Negative) Urine Cocaine Screen (Negative) U Marijuana (THC) Screen (Negative) Urine Specific [place] Normal (Normal) Ur Creatinine Normal (Normal) Chlamy pneumoniae PCR (Not Detect) Adenovirus (PCR) (Not Detect) B. pertussis DNA (PCR) (Not Detect) B.parapertussis DNA PCR (Not Detecte) Coronavirus OC43 (PCR) (Not Detect) Coronavirus HKU1 (PCR) (Not Detect) Coronavirus 229E (PCR) (Not Detect) SARS-CoV-2 (PCR) (Not Detecte) Coronavirus NL63 (PCR) (Not Detect) Human Metapneumovir PCR (Not Detect) Influenza Type A (PCR) (Not Detect) Influenza Type B (PCR) (Not Detect) M. pneumoniae (PCR) (Not Detect) Parainfluenza 1 (PCR) (Not Detect) Parainfluenza 2 (PCR) (Not Detect) Parainfluenza 3 (PCR) (Not Detect) Parainfluenza 4 (PCR) (Not Detect) RSV (PCR) (Not Detect) Entero/Rhino (PCR) (Not Detect) Point of Care Testing Glucose POC 140 Imaging Data Chest x-ray: Radiologist's Impression: [address] [address] XRay Report Signed Patient: Johanne Norman MR#: [id number] : 1945 Acct:[id number] Age/Sex: 78 / F Date of Service: 03/07/24 Loc: ED Accession Number: [id number] Procedure: XR chest 1V Ordering Provider: Byron Carbone MD PROCEDURE: XR CHEST 1V INDICATIONS: altered mental status TECHNIQUE: One view of the chest was acquired. COMPARISON: [facility], , XR CHEST 1V, 08/20/2017, 21:32. FINDINGS: Surgical changes and devices: None. Lungs and pleura: Lungs are clear. No pleural effusions or pneumothorax. Mediastinum: Mediastinal contours appear normal. Heart size is normal. Bones and chest wall: No suspicious bony lesions. Overlying soft tissues appear unremarkable. IMPRESSION: No acute cardiopulmonary abnormality is seen. Dictated by: Zhao Harding M.D. on 03/07/2024 at 10:52 Approved by: Zhao Harding M.D. on 03/07/2024 at 10:53 [facility] Narrative Medical decision making narrative: atient brought here by ambulance from [facility]. Patient has history of dementia. at bedside. Patient may have a UTI according to because yesterday she seemed to be agitated and a little aggressive. At this time patient is calm. Answering to name only. She denies any pain anywhere. No fall or injury. No new medications. is at bedside. He states she is here because she gets upset when he leaves her at [facility] after visiting her. Denies any fall or injury. Patient denies any pain anywhere. No urinary complaints no cough cold congestion. No chest pain or abdominal pain no headache. Social work consult has been placed as well. After history and exam CBC CMP urinalysis respiratory panel chest x-ray EKG social work consult [facility] Medical records reviewed: No recent visit for this complaint Differential considered: Includes but not limited to dementia UTI dehydration Lab Test results independently reviewed as above. Pertinent findings: WBC 7.4 hemoglobin 14.3 sodium 138 potassium 4.7 BUN 24 creatinine 1.61 which appears to be at baseline. GFR 32. Glucose 159 calcium 9.7 AST 42 ALT 28 ammonia less than 9 respiratory panel negative Nitrate positive leukocyte esterase positive WBC 10 -30 Independently reviewed EKG sinus rhythm rate [address] elevation or depression Imaging studies independently reviewed: Chest x-ray no acute finding Consultations: Leidy has spoken with patient's and daughter. 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 They do agree. Treatments: Keflex Re-evaluations: 2:59 p.m.. Spoke with daughter results. They were correct about UTI causing agitation. She will be treated for UTI. Keflex has been started. Return precautions reviewed. They desire discharge home. Discussion: Appropriate for discharge home. Exam is reassuring. Return precautions reviewed with and daughter. Antibiotics have been started. They desire discharge home. No head CT indicated. Patient has this type of behavior when UTI occurs. Diagnosis: Acute UTI <Katerina Grijalva, - Last Filed: 03/09/24 08:24> Lab Data Labs: Lab Results 03/07/24 03/07/24 03/07/24 Range/Units 09:49 10:09 14:18 WBC 7.4 (4.5-11.0) X10^3/uL RBC 4.76 (4.0-5.2) X10^6/uL Hgb 14.3 (12.0-16.0) g/dL Hct 43.3 (36-46) % MCV 90.9 (80-100) fL MCH 30.0 (26-34) PG MCHC 33.0 (30-36) % RDW 14.2 (11.6-14.8) % Plt Count 232 (150-400) X10^3/uL Neut % (Auto) 55.9 (50-75) % Lymph % (Auto) 35.7 (25-40) % Burke % (Auto) 7.1 (3-14) % Eos % (Auto) 0.8 L (2-4) % Baso % (Auto) 0.5 (0-2) % Neut # (Auto) 4100 (3876-9965) /uL Lymph # (Auto) 2600 (5725-0351) /uL Burke # (Auto) 500 (0-900) /uL Eos # (Auto) 100 (0-450) /uL Baso # (Auto) 0 (0-100) /uL Sodium 138 (137-145) mmol/L Potassium 4.7 (3.4-5.1) mmol/L Chloride 104 (98-107) mmol/L Carbon Dioxide 25 (22-32) mmol/L BUN 24 H (7-17) mg/dL Creatinine 1.61 H (0.52-1.04) mg/dL Estimated GFR 32 L (>60) mL/min BUN/Creatinine Ratio 14.9 (6-22) Glucose 159 H (80-110) mg/dL Calcium 9.7 (8.4-10.2) mg/dL Total Bilirubin 0.7 (0.2-1.3) mg/dL AST 42 H (14-36) IU/L ALT 28 (<35) IU/L Alkaline Phosphatase 79 (38-126) U/L Ammonia < 9 L (9-30) umol/L Total Protein 8.0 (6.3-8.2) g/dL Albumin 4.8 (3.5-5.0) g/dL Globulin 3.2 (1.7-4.1) g/dL Albumin/Globulin Ratio 1.5 (1.0-2.8) Urine Color Yellow Urine Appearance Cloudy Urine pH 5.5 (4.5-8.0) Ur Specific [place] 1.020 (1.000-1.035) Urine Protein Negative (Negative) Urine Glucose (UA) 3+ H (Negative) g/dL Urine Ketones Trace H (NEGATIVE) Urine Occult Blood 1+ H (Negative) Urine Nitrate Positive H (Negative) Urine Bilirubin Negative (NEGATIVE) Urine Urobilinogen 1.0 (0.2) E.U./dL Ur Leukocyte Esterase 1+ H (NEGATIVE) Urine RBC 5-10/hpf H (0-5/HPF) Urine WBC 10-30/hpf H (0-5/HPF) Ur Squamous Epith Cells None seen (0-5/HPF) Urine Bacteria Many (>30) H (None) Ur Culture Indicated? Specimen cultured Vol Urine Centrifuged 10ml (spun) U Opiates 300ng/mL cut Negative (Negative) Ur Oxycodone Screen Negative (Negative) Urine Methadone Screen Negative (Negative) Ur Barbiturates Screen Negative (Negative) U Tricyclic Antidepress Negative (Negative) Ur Phencyclidine Scrn Negative (Negative) Ur Amphetamines Screen Negative (Negative) U Methamphetamines Scrn Negative (Negative) Ur MDMA Scrn (Ecstasy) Negative (Negative) U Benzodiazepines Scrn Negative (Negative) Urine Cocaine Screen Negative (Negative) U Marijuana (THC) Screen Negative (Negative) Urine Specific [place] (Normal) Ur Creatinine (Normal) Chlamy pneumoniae PCR Not detected (Not Detect) Adenovirus (PCR) Not detected (Not Detect) B. pertussis DNA (PCR) Not detected (Not Detect) B.parapertussis DNA PCR Not detected (Not Detecte) Coronavirus OC43 (PCR) Not detected (Not Detect) Coronavirus HKU1 (PCR) Not detected (Not Detect) Coronavirus 229E (PCR) Not detected (Not Detect) SARS-CoV-2 (PCR) Not detected (Not Detecte) Coronavirus NL63 (PCR) Not detected (Not Detect) Human Metapneumovir PCR Not detected (Not Detect) Influenza Type A (PCR) Not detected (Not Detect) Influenza Type B (PCR) Not detected (Not Detect) M. pneumoniae (PCR) Not detected (Not Detect) Parainfluenza 1 (PCR) Not detected (Not Detect) Parainfluenza 2 (PCR) Not detected (Not Detect) Parainfluenza 3 (PCR) Not detected (Not Detect) Parainfluenza 4 (PCR) Not detected (Not Detect) RSV (PCR) Not detected (Not Detect) Entero/Rhino (PCR) Not detected (Not Detect) 03/07/24 Range/Units 14:18 WBC (4.5-11.0) X10^3/uL RBC (4.0-5.2) X10^6/uL Hgb (12.0-16.0) g/dL Hct (36-46) % MCV (80-100) fL MCH (26-34) PG MCHC (30-36) % RDW (11.6-14.8) % Plt Count (150-400) X10^3/uL Neut % (Auto) (50-75) % Lymph % (Auto) (25-40) % Burke % (Auto) (3-14) % Eos % (Auto) (2-4) % Baso % (Auto) (0-2) % Neut # (Auto) (9466-1782) /uL Lymph # (Auto) (5048-6662) /uL Burke # (Auto) (0-900) /uL Eos # (Auto) (0-450) /uL Baso # (Auto) (0-100) /uL Sodium (137-145) mmol/L Potassium (3.4-5.1) mmol/L Chloride (98-107) mmol/L Carbon Dioxide (22-32) mmol/L BUN (7-17) mg/dL Creatinine (0.52-1.04) mg/dL Estimated GFR (>60) mL/min BUN/Creatinine Ratio (6-22) Glucose (80-110) mg/dL Calcium (8.4-10.2) mg/dL Total Bilirubin (0.2-1.3) mg/dL AST (14-36) IU/L ALT (<35) IU/L Alkaline Phosphatase (38-126) U/L Ammonia (9-30) umol/L Total Protein (6.3-8.2) g/dL Albumin (3.5-5.0) g/dL Globulin (1.7-4.1) g/dL Albumin/Globulin Ratio (1.0-2.8) Urine Color Urine Appearance Urine pH Normal (4.5-8.0) Ur Specific [place] (1.000-1.035) Urine Protein (Negative) Urine Glucose (UA) (Negative) g/dL Urine Ketones (NEGATIVE) Urine Occult Blood (Negative) Urine Nitrate (Negative) Urine Bilirubin (NEGATIVE) Urine Urobilinogen (0.2) E.U./dL Ur Leukocyte Esterase (NEGATIVE) Urine RBC (0-5/HPF) Urine WBC (0-5/HPF) Ur Squamous Epith Cells (0-5/HPF) Urine Bacteria (None) Ur Culture Indicated? Vol Urine Centrifuged U Opiates 300ng/mL cut (Negative) Ur Oxycodone Screen (Negative) Urine Methadone Screen (Negative) Ur Barbiturates Screen (Negative) U Tricyclic Antidepress (Negative) Ur Phencyclidine Scrn (Negative) Ur Amphetamines Screen (Negative) U Methamphetamines Scrn (Negative) Ur MDMA Scrn (Ecstasy) (Negative) U Benzodiazepines Scrn (Negative) Urine Cocaine Screen (Negative) U Marijuana (THC) Screen (Negative) Urine Specific [place] Normal (Normal) Ur Creatinine Normal (Normal) Chlamy pneumoniae PCR (Not Detect) Adenovirus (PCR) (Not Detect) B. pertussis DNA (PCR) (Not Detect) B.parapertussis DNA PCR (Not Detecte) Coronavirus OC43 (PCR) (Not Detect) Coronavirus HKU1 (PCR) (Not Detect) Coronavirus 229E (PCR) (Not Detect) SARS-CoV-2 (PCR) (Not Detecte) Coronavirus NL63 (PCR) (Not Detect) Human Metapneumovir PCR (Not Detect) Influenza Type A (PCR) (Not Detect) Influenza Type B (PCR) (Not Detect) M. pneumoniae (PCR) (Not Detect) Parainfluenza 1 (PCR) (Not Detect) Parainfluenza 2 (PCR) (Not Detect) Parainfluenza 3 (PCR) (Not Detect) Parainfluenza 4 (PCR) (Not Detect) RSV (PCR) (Not Detect) Entero/Rhino (PCR) (Not Detect) Point of Care Testing Glucose POC 140 [facility] Narrative Medical decision making narrative: atient brought here by ambulance from [facility]. Patient has history of dementia. at bedside. Patient may have a UTI according to because yesterday she seemed to be agitated and a little aggressive. At this time patient is calm. Answering to name only. She denies any pain anywhere. No fall or injury. No new medications. is at bedside. He states she is here because she gets upset when he leaves her at [facility] after visiting her. Denies any fall or injury. Patient denies any pain anywhere. No urinary complaints no cough cold congestion. No chest pain or abdominal pain no headache. Social work consult has been placed as well. After history and exam CBC CMP urinalysis respiratory panel chest x-ray EKG social work consult [facility] Medical records reviewed: No recent visit for this complaint Differential considered: Includes but not limited to dementia UTI dehydration Lab Test results independently reviewed as above. Pertinent findings: WBC 7.4 hemoglobin 14.3 sodium 138 potassium 4.7 BUN 24 creatinine 1.61 which appears to be at baseline. GFR 32. Glucose 159 calcium 9.7 AST 42 ALT 28 ammonia less than 9 respiratory panel negative Nitrate positive leukocyte esterase positive WBC 10 -30 Independently reviewed EKG sinus rhythm rate [address] elevation or depression Imaging studies independently reviewed: Chest x-ray no acute finding Consultations: Leidy has spoken with patient's and daughter. 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 They do agree. Treatments: Keflex Re-evaluations: 2:59 p.m.. Spoke with daughter results. They were correct about UTI causing agitation. She will be treated for UTI. Keflex has been started. Return precautions reviewed. They desire discharge home. Discussion: Appropriate for discharge home. Exam is reassuring. Return precautions reviewed with and daughter. Antibiotics have been started. They desire discharge home. No head CT indicated. Patient has this type of behavior when UTI occurs. Diagnosis: Acute UTI 03/09/2024 Dr. Grijalva urine cultures positive for E coli greater than 100,000 CFU pansensitive patient was discharged home on cephalexin appears to be appropriate coverage no additional changes Discharge Plan Departure Patient Disposition: Home Clinical Impression: Acute UTI Instructions: DI for Urinary Tract Infection in Children Activity Restrictions/Additional Instructions: ER pain treated for urinary tract infection. At times they can change behavior in people. Prescription has been provided and 1st dose was given here today. Continue home medications. Return if worse if any questions or concerns. See family doctor this week for re-evaluation. Prescriptions: New cephalexin 500 mg capsule 500 mg PO QID Qty: 20 0RF No Action (DME) blood-glucose meter [Contour Next EZ Meter] Kit See Rx Instructions .Route Qty: 1 0RF Rx Instructions: As directed (DME) Contour Next Test Strips Strip See Rx Instructions .Route Qty: 50 12RF Rx Instructions: As directed (DME) lancing device with lancets [Microlet Next Lancing Device] Kit See Rx Instructions .Route Qty: 100 0RF Rx Instructions: As directed (DME) alcohol swabs See Rx Instructions .Route .MEDSUPPLY Qty: 1 3RF Rx Instructions: use to wipe off finger to take blood sugar once a day levothyroxine 50 mcg tablet 50 mcg PO DAILY Qty: 90 3RF lisinopril 10 mg tablet 10 mg PO BEDTIME Qty: 90 3RF dapagliflozin propanediol [Farxiga] 10 mg tablet 10 mg PO DAILY Qty: 30 1RF melatonin 5 mg 5 mg PO BEDTIME trazodone 50 mg Tablet 50 mg PO BEDTIME quetiapine [Seroquel] 50 mg Tablet 50 mg PO BID trazodone 50 mg 25 mg PO DAILY Referrals: Jose Alfredo Best DO [Physician] - Stand Alone Forms: Patient Portal/API/Survey
[2024-03-07 10:57] LABS: Adenovirus Not Detected (Not Detect); B. parapertussis Not Detected (Not Detecte); Bordetella pertussis Not Detected (Not Detect); Chlamydophila pneumoniae Not Detected (Not Detect); Coronavirus 229E Not Detected (Not Detect); Coronavirus HKU1 Not Detected (Not Detect); Coronavirus NL 63 Not Detected (Not Detect); Coronavirus OC43 Not Detected (Not Detect); Human Metapneumovirus Not Detected (Not Detect); Human Rhinovirus/Enterovirus Not Detected (Not Detect); Influenza A Not Detected (Not Detect); Influenza B Not Detected (Not Detect); Mycoplasma pneumoniae Not Detected (Not Detect); Parainfluenza Virus 1 Not Detected (Not Detect); Parainfluenza Virus 2 Not Detected (Not Detect); Parainfluenza Virus 3 Not Detected (Not Detect); Parainfluenza Virus 4 Not Detected (Not Detect); Respiratory Syncytial Virus Not Detected (Not Detect); SARS- CoV-2 Not Detected (Not Detecte)
--- NOTE | 2024-03-07 11:36 | PC.NURSE ---
Pt agreeable to cath urine. set up sterile. on attempt to obtain urine, pt kicking and punching this RN. Pt being aggressive with staff and yelling i dont give a shit. covered with warm blankets. Dr Carbone aware. attempted to call daughter however her voicemail box is not set up. went home and unable to be reached as well.
[2024-03-07 14:30] LABS: Appearance Urine UA CLOUDY; Bilirubin Urine UA NEGATIVE (NEGATIVE); Color Urine UA YELLOW; Glucose Urine UA 3+ g/dL (Negative); Ketones Urine UA TRACE (NEGATIVE); Leukocyte Esterase Urine UA 1+ (NEGATIVE); Nitrite Urine UA POSITIVE (Negative); Occult Blood Urine UA 1+ (Negative); Protein Urine UA NEGATIVE (Negative); pH Urine UA 5.5 (4.5-8.0)
--- NOTE | 2024-03-07 14:30 | PC.NURSE ---
Pt with dementia, 2 attempt to get urine via cath and 1 attempt to use bedpan with no success, pt was able to the to BSC with a little urine output. Pt has moments of aggression and is impulsive, will not leave VS equipment in place and gets aggressive with staff when attempting to get VS.
[2024-03-07 14:33] LABS: Bacteria Urine Many (>30); Culture Indicated Urine Specimen Cultured; RBC Urine 5-10/HPF (0-5/HPF); Squamous Epithelial Cell Urine None Seen (0-5/HPF); Urine Volume 10mL (spun); WBC Urine 10-30/HPF (0-5/HPF)
[2024-03-07 14:34] LABS: UR Morphine/Opiate cutoff 300 Negative (Negative); Ur Creatinine Normal (Normal); Ur Specific Gravity Normal (Normal); Urine Amphetamines Negative (Negative); Urine Barbiturates Negative (Negative); Urine Benzodiazepines Negative (Negative); Urine Cocaine Negative (Negative); Urine MDMA Negative (Negative); Urine Methadone Negative (Negative); Urine Methamphetamines Negative (Negative); Urine Oxycodone Negative (Negative); Urine Phencyclidine Negative (Negative); Urine Tetrahydrocannabinol Negative (Negative); Urine Tricyclic Antidepressant Negative (Negative); Urine pH Normal (Normal)
[2024-03-07] MEDS: cephALEXin 250 MG CAPSULE 500 MG PO (14:42)
--- NOTE | 2024-03-07 14:55 | CM.SWNOTE ---
ED ENROLLMENT SPECIALIST Note Patient is 78 y/o female who presents to ED via EMS from [facility] due to concern for AMS, increase in confusion to rule out UTI. Patient's PCP is KOKO Arellano, [facility]. Patient has a hc of Dementia, CKD, UTIs, & Controlled Type 2 Diabetes. Patient was present in ED in January for UTI. ENROLLMENT SPECIALIST receives consult to speak with family about patient's living situation. ENROLLMENT SPECIALIST enters room to meet with patient's spouse. He reports that patient has good times and bad times. He states that patient has a difficult time when he leaves after visiting her. Patient's spouse resides at [facility]. It is reported that patient's daughter lives in [facility] and patient's son lives in [place]. Patient's spouse states that he visits almost every day. ENROLLMENT SPECIALIST encourages spouse that patient is in the best living situation for her, he indicates agreement and states that it is recommended by her neurologist. Patient is eventually able to provide a urine sample and patient is positive for acute UTI. Plan: patient to d/c back to [facility] upon medical clearance with family with new rx antibiotics. ERIC De La O
== END 2024-03-07 15:06 | disposition home or self-care (01) ==
PROVIDERS: Emergency Provider Emergency Medicine; Family Provider Family Medicine; PCP Nurse Practitioner Family
DX: N39.0 Urinary tract infection, site not specified (principal); B96.20 Unspecified Escherichia coli [E. coli] as the cause of diseases classified elsewhere
CPT/HCPCS: 36415; 71045; 80053; 80305; 81001; 82140; 85025; 87077; 87086; 87186; 87633; 93005; 93010; 99284

== ENCOUNTER → 2024-04-04 12:35 | Outpatient (ROUT) | payer MEDICARE, SELFPAY ==
[2018-08-23 09:09] VITALS: BMI 23.1
[2024-04-04 12:41] LABS: Appearance Urine UA CLEAR; Bilirubin Urine UA NEGATIVE (NEGATIVE); Color Urine UA YELLOW; Glucose Urine UA 3+ g/dL (Negative); Ketones Urine UA NEGATIVE (NEGATIVE); Leukocyte Esterase Urine UA NEGATIVE (NEGATIVE); Nitrite Urine UA NEGATIVE (Negative); Occult Blood Urine UA NEGATIVE (Negative); Protein Urine UA NEGATIVE (Negative); Urobilinogen Urine UA 0.2 E.U./dL (0.2)
[2024-04-04 12:45] LABS: pH Urine UA 5.5 (4.5-8.0)
[2024-04-04 12:47] LABS: Urine Volume 10mL (spun)
[2024-04-04 12:48] LABS: Bacteria Urine Moderate (10-30); Culture Indicated Urine Specimen Cultured; RBC Urine None Seen (0-5/HPF); Squamous Epithelial Cell Urine None Seen (0-5/HPF); WBC Urine 5-10/HPF (0-5/HPF)
== END ==
PROVIDERS: Family Provider Family Medicine; PCP Nurse Practitioner Family; Visit Provider Nurse Practitioner Family
DX: R82.90 Unspecified abnormal findings in urine (principal)
CPT/HCPCS: 81001; 87077; 87086; 87186

== ENCOUNTER → 2024-06-09 19:30 | Outpatient (ROUT) | payer MEDICARE, SELFPAY ==
[2018-08-23 09:09] VITALS: BMI 23.1
[2024-06-09 19:36] LABS: Appearance Urine UA CLEAR; Bilirubin Urine UA NEGATIVE (NEGATIVE); Color Urine UA YELLOW; Glucose Urine UA 3+ g/dL (Negative); Ketones Urine UA NEGATIVE (NEGATIVE); Leukocyte Esterase Urine UA NEGATIVE (NEGATIVE); Nitrite Urine UA NEGATIVE (Negative); Occult Blood Urine UA NEGATIVE (Negative); Protein Urine UA NEGATIVE (Negative); Urobilinogen Urine UA 0.2 E.U./dL (0.2)
[2024-06-09 19:44] LABS: pH Urine UA 5.5 (4.5-8.0)
[2024-06-09 19:45] LABS: Bacteria Urine Occasional (0-1); Culture Indicated Urine Cult Not Indicated; RBC Urine 0-1/HPF (0-5/HPF); Squamous Epithelial Cell Urine 0-1 /HPF (0-5/HPF); Urine Volume 10mL (spun); WBC Urine 0-1/HPF (0-5/HPF)
== END ==
PROVIDERS: Family Provider Family Medicine; PCP Nurse Practitioner Family; Visit Provider Nurse Practitioner Gerontology
DX: N39.0 Urinary tract infection, site not specified (principal)
CPT/HCPCS: 81001

== ENCOUNTER → 2024-06-22 18:35 | Outpatient (ROUT) | payer MEDICARE, SELFPAY ==
[2018-08-23 09:09] VITALS: BMI 23.1
[2024-06-22 18:42] LABS: Appearance Urine UA CLEAR; Bilirubin Urine UA NEGATIVE (NEGATIVE); Color Urine UA YELLOW; Glucose Urine UA 3+ g/dL (Negative); Ketones Urine UA NEGATIVE (NEGATIVE); Leukocyte Esterase Urine UA NEGATIVE (NEGATIVE); Nitrite Urine UA NEGATIVE (Negative); Occult Blood Urine UA NEGATIVE (Negative); Protein Urine UA NEGATIVE (Negative); Urobilinogen Urine UA 0.2 E.U./dL (0.2)
[2024-06-22 18:47] LABS: pH Urine UA 5.5 (4.5-8.0)
[2024-06-22 18:49] LABS: Bacteria Urine None Seen; Culture Indicated Urine Cult Not Indicated; RBC Urine None Seen (0-5/HPF); Squamous Epithelial Cell Urine 0-1 /HPF (0-5/HPF); Urine Volume 10mL (spun); WBC Urine 1-5/HPF (0-5/HPF)
== END ==
LOC: LAB 18:35
PROVIDERS: Family Provider Family Medicine; PCP Nurse Practitioner Family; Visit Provider Nurse Practitioner Family
DX: R41.82 Altered mental status, unspecified (principal)
CPT/HCPCS: 81001

== ENCOUNTER 2024-09-22 14:47 | Emergency (ER) | payer MEDICARE, SELFPAY ==
[2018-08-23 09:09] VITALS: BMI 23.1
[2024-09-22] VITALS (19 sets, daily range): BP systolic 115–168; BP diastolic 67–95; PULSE 74–87; RESP 10–22; TEMP 35.9; O2SAT 88–98; BMI 18.3
--- NOTE | 2024-09-22 15:13 | DI.RAD.S_ITS ---
PROCEDURE: XR ABDOMEN 1V INDICATIONS: constipation TECHNIQUE: One view of the abdomen acquired. COMPARISON: [facility], CT, CT ABDOMEN PELVIS WO CON, 09/22/2024, 15:35. FINDINGS: Surgical changes and devices: None. Bowel: Bowel gas pattern is normal. No obstruction Soft tissues: No suspicious abdominal calcifications. Visualized solid organ contours appear normal in size. Bones: No suspicious bony lesions. L3-4 instrumented interbody fusion IMPRESSION: Moderate fecal debris in the rectum and left colon Approved by: Domenic Doyle M.D. on 09/22/2024 at 15:04
--- NOTE | 2024-09-22 15:15 | ED.GENADULT ---
HPI - General Adult General Chief complaint: Abdominal Pain Stated complaint: Constipation t-5 Time Seen by Provider: 09/22/24 15:12 Source: family Mode of arrival: Ambulatory History of Present Illness HPI narrative: 79-year-old woman currently at [facility] facility, hypothyroidism, hypertension on Seroquel at bedtime brought over because he has not had a bowel movement in over 5 days and seems a bit more agitated. They have been using Dulcolax and prune juice. In trying to get her into a gown she is even more agitated kicking in the nurse's. Digital rectal exam or impaction is not going to be possible without sedation. She has no specific complaints but there is significant dementia involved Related Data Home Medications ?Medication ?Instructions ?Recorded ?Confirmed melatonin 5 mg PO BEDTIME 03/07/24 03/07/24 quetiapine 50 mg tablet (Seroquel) 50 mg PO BID 03/07/24 03/07/24 trazodone 25 mg PO DAILY 03/07/24 03/07/24 trazodone 50 mg tablet 50 mg PO BEDTIME 03/07/24 03/07/24 Previous Rx's ?Medication ?Instructions ?Recorded blood-glucose meter (Contour Next #1 ea 11/06/21 EZ Meter kit) alcohol swabs #1 ea 11/10/21 blood sugar diagnostic (Contour #50 ea 11/10/21 Next Test Strips) lancing device with lancets kit #100 ea 11/10/21 (Microlet Next Lancing Device kit) levothyroxine 50 mcg tablet 50 mcg PO DAILY #90 tabs 12/05/23 lisinopril 10 mg tablet 10 mg PO BEDTIME #90 tabs 12/06/23 dapagliflozin propanediol 10 mg 10 mg PO DAILY #30 tabs 01/02/24 tablet (Farxiga) cephalexin 500 mg capsule 500 mg PO QID #20 caps 03/07/24 Allergies Allergy/AdvReac Type Severity Reaction Status Date / Time latex Allergy Severe Rash Verified 08/30/23 10:46 ciprofloxacin (CIPROFLOXACIN) Allergy Intermediate HIVES Verified 08/30/23 10:46 Patient History Medical History Bimalleolar avulsion fracture of left ankle Chronic kidney disease Acne Mumps Measles Chicken pox Fecal incontinence Colon polyps Hyperlipemia Dementia Arthritis Osteoarthritis Doherty's neuroma of right foot GERD (gastroesophageal reflux disease) HLD (hyperlipidemia) Generalized headaches Conjunctivitis Controlled type 2 diabetes mellitus CVA (cerebral vascular accident) Non-alcoholic fatty liver disease Hypertension Surgical History Anesthesia History of endoscopy History of colonoscopy Hx of arthroscopy of right knee History of lumbar fusion (~2018) Hx of bilateral cataract extraction Family History Brother Diabetes mellitus Father Mental health problem Alzheimer's disease Grandmother Diabetes mellitus Mother Cancer Grandmother Mental health problem Sister Age: 88 Cancer Social History household members: spouse alcohol intake: current alcohol intake frequency: holidays/special occasions only Exam Initial Vital Signs Initial Vital Signs: Vital Signs Temperature 96.6 F L 09/22/24 14:49 Pulse Rate 74 09/22/24 14:49 Respiratory Rate 16 09/22/24 14:49 Blood Pressure 115/67 09/22/24 14:49 Pulse Oximetry 98 09/22/24 14:49 Oxygen Delivery Method Room Air 09/22/24 14:49 General: Demented, agitated, will not allow any type of exam Respiratory: no obvious respiratory distress Abdomen: Significant tenderness with any palpation. We will not allow any type exam Skin: No obvious rashes, warm and dry Neurologic: Grossly intact no obvious asymmetries or abnormalities Psych: Significantly demented and agitated Procedures Procedural Sedation Consent signed: Yes Time out performed: Yes Indication: other (Stool disimpaction) ASA Class: II Mallampati Airway Classification: Class II Preparation: security monitor applied, pulse oximeter, capnometry used, supplemental O2 applied and suction/airway equipment at bedside Ketamine dose (mg): 200 Intraservice time/total sedation time (min): 18 ED Sedation Level: Moderate (Concious) Patient Tolerated Procedure: Well Additional Comments: time out at 18:18 IM injection 18:20 While patient was still sedated, NG tube was placed and 150mg of mg citrate was given per NG Course Orders Ordered: ED Orders 09/22/24 15:13 XR abdomen 1V Stat 09/22/24 15:29 CT abdomen pelvis wo con Stat Discontinued Medications Hydromorphone HCl (Hydromorphone 1 Mg Inj) 2 mg IM NOW ONE Stop: 09/22/24 15:30 Last Admin: 09/22/24 15:35 Dose: 2 mg Documented By: TOBIAS Ketamine HCl (Ketamine 500 Mg/5 Ml Inj) 200 mg IM NOW ONE Stop: 09/22/24 18:13 Magnesium Citrate (Magnesium Citrate 300 Ml Solution) 300 ml PO NOW ONE Stop: 09/22/24 15:14 Last Admin: 09/22/24 15:34 Dose: Not Given Documented By: TOBIAS Vital Signs Vital signs: Vital Signs - 8 hr 09/22/24 14:49 Temperature 96.6 F L Pulse Rate 74 Respiratory Rate 16 Blood Pressure 115/67 Pulse Oximetry 98 Oxygen Delivery Method Room Air Medical Decision Making [facility] Narrative Medical decision making narrative: CC: Constipation, abdominal pain, advanced dementia Complicating co-morbidities: Lives at [facility] Data collected from: patient, has been Differential considered: Constipation, perforation, acute surgical abdomen, foreign body Exam documented above, pertinent findings include: Patient is frail, agitated, becomes significantly upset with any type of touching. Minimal palpation of her belly caused significant pain with concern for guarding. Lab Test results independently reviewed as above. Pertinent findings: Patient would not allow IV to be placed Imaging studies independently reviewed: Initial x-ray shows quite a bit of air, stool in the rectum and there was a concern for free air on my part. CT scan of the abdomen without contrast was ordered that confirms severe obstipation but no free air or concern for abdominal perforation or acute surgical abdomen Treatments: Moderate sedation with IM ketamine to allow disimpaction and also administration of 150 mg of oral magnesium citrate Procedure: After adequate moderate sedation was obtained. Manual disimpaction was done with significant amount of firm stool removed from the rectum. There still quite a bit of firm stool further than my finger can reach. I did attempt to place a Kerr catheter up beyond that area of stool to try to give an enema. Was unsuccessful in getting catheter to advance past the stool bolus. Decision was made to place an NG catheter at bedside 150 mg of magnesium citrate was given through the NG tube. Discussion: 79-year-old woman with no bowel movement for 5 days increasing agitation likely related to the severe abdominal pain from her complete obstipation. Because of the agitation conscious sedation was required. Informed consent was obtained from her who does have [id number]. As much stool was removed from her rectum as I was able to reach. Was unable to effectively get an enema beyond the next layer of stool. She was given oral magnesium citrate. We will ask them to add daily MiraLax, continue daily Dulcolax and prunes along with routine bowel care back in the [facility]. She is safe for discharge. Discharge Plan Departure Patient Disposition: Home Clinical Impression: Obstipation Instructions: DI for Constipation Activity Restrictions/Additional Instructions: Johanne was seen today with abdominal pain and reports of no bowel movement for 5 days. Her dementia with agitation did not permit much of an exam. X-rays of her abdomen showed possible concerns for free air. CT scan of the abdomen shows no free air or bowel perforation but significant obstipation. Again, because of her agitation she was sedated with IM ketamine. Once she was appropriately sedated I was able to do a manual bowel disimpaction getting out quite a bit of stool. Unfortunately there seems like there is still quite a bit more stool that needs to come out. We did try placing a Kerr catheter higher above that next level of stool blockage to given enema. We were unsuccessful in doing so. The enema simply returned. She was given 300 mg of magnesium citrate orally. I fully expect that she will begin to clean the rest of her bowels out within the next few hours I would strongly recommend increasing her bowel regimen. I would recommend at least once a day MiraLax 17 g orally and if she has not had a bowel movement repeating in the evening. Please continue with all other routine bowel care and fiber supplementation Prescriptions: No Action (DME) blood-glucose meter [Contour Next EZ Meter] Kit See Rx Instructions .Route Qty: 1 0RF Rx Instructions: As directed (DME) Contour Next Test Strips Strip See Rx Instructions .Route Qty: 50 12RF Rx Instructions: As directed (DME) lancing device with lancets [Microlet Next Lancing Device] Kit See Rx Instructions .Route Qty: 100 0RF Rx Instructions: As directed (DME) alcohol swabs See Rx Instructions .Route .MEDSUPPLY Qty: 1 3RF Rx Instructions: use to wipe off finger to take blood sugar once a day levothyroxine 50 mcg tablet 50 mcg PO DAILY Qty: 90 3RF lisinopril 10 mg tablet 10 mg PO BEDTIME Qty: 90 3RF dapagliflozin propanediol [Farxiga] 10 mg tablet 10 mg PO DAILY Qty: 30 1RF melatonin 5 mg 5 mg PO BEDTIME trazodone 50 mg Tablet 50 mg PO BEDTIME quetiapine [Seroquel] 50 mg Tablet 50 mg PO BID trazodone 50 mg 25 mg PO DAILY cephalexin 500 mg capsule 500 mg PO QID Qty: 20 0RF Referrals: Dariana Bonner ARNP [Primary Care Provider, Medical] Stand Alone Forms: Patient Portal/API
--- NOTE | 2024-09-22 15:29 | DI.CT.S_ITS ---
PROCEDURE: CT ABDOMEN PELVIS WO CON INDICATIONS: possible bowel perforation TECHNIQUE: CT of the abdomen and pelvis was obtained without intravenous contrast. Coronal and sagittal reformats were performed. For radiation dose reduction, the following was used: automated exposure control, adjustment of mA and/or kV according to patient size. COMPARISON: [facility], CR, XR ABDOMEN 1V, 09/22/2024, 15:12. FINDINGS: Lower Chest: Dense coronary artery vascular calcification ABDOMEN: Liver: No contour-deforming mass. Gallbladder: No radiopaque gallstones or wall thickening. Biliary ducts: No biliary dilation. Pancreas: No ductal dilation. Spleen: Size is within normal limits. Adrenal Glands: No adrenal nodules. Kidneys and Ureters: No hydronephrosis. No contour-deforming mass. Punctate nonobstructing right renal calculus Stomach and Bowel: Moderate fecal bolus in the rectum. Moderate fecal debris in the sigmoid and left colon. Peritoneum: No abnormal intraperitoneal fluid. No free air. Ventral Wall: No significant hernia. Abdominal Nodes: No retroperitoneal or mesenteric adenopathy by size criteria. Vessels: Aorta and inferior vena cava are normal in size. PELVIS: Pelvic Organs: Unremarkable. Bladder: Unremarkable. Pelvic Nodes: No enlarged lymph nodes. Miscellaneous: No inguinal hernias are seen. Bones: Degenerative disc disease and arthropathy noted in lower lumbar spine. Moderate central stenosis L4-5. Instrumented L3-4 interbody fusion with decompression and posterior shahram and screw instrumentation. There is malpositioning of the left L3 pedicle screw which traverses the central canal and terminates in the left lateral recess at the L2-3 level, remaining entirely outside the left L3 pedicle IMPRESSION: Large fecal bolus in the rectum with moderate fecal debris in the sigmoid and left colon. No obstruction. No free air or evidence of bowel perforation. Malpositioned left L3 pedicle screw traverses the central canal and terminates in the left lateral recess without purchase in the pedicle. Consider nonemergent neurosurgical referral. Approved by: Domenic Doyle M.D. on 09/22/2024 at 15:37
[2024-09-22] MEDS: HYDROMORPHONE 1 MG INJ 2 MG IM (15:35)
[2024-09-22] MEDS: KETAMINE 500 MG/5 ML INJ 200 MG IM (18:20)
[2024-09-22] MEDS: MAGNESIUM CITRATE 300 ML SOLUTION PO (18:43)
[2024-09-23] VITALS (26 sets, daily range): BP systolic 133–162; BP diastolic 69–97; PULSE 68–96; RESP 17–26; O2SAT 91–99
== END 2024-09-23 07:04 | disposition home or self-care (01) ==
PROVIDERS: Emergency Provider Emergency Medicine; Family Provider Family Medicine; PCP Nurse Practitioner Family
DX: K59.00 Constipation, unspecified (principal); R45.1 Restlessness and agitation
CPT/HCPCS: 74018; 74176; 96372; 99152; 99285; J1171